=== PATIENT | female | born 1995 | race Caucasian/White ===

== ENCOUNTER → 2020-05-16 | Outpatient (CLI) | payer BC, SELFPAY ==
[2020-05-16 13:37] VITALS: BMI 24.0
[2020-05-20 09:44] LABS: HPV APTIMA, High Risk Negative (Negative)
== END | disposition home or self-care (01) ==
PROVIDERS: PCP Family Medicine; Visit Provider Obstetrics & Gynecology
DX: Z12.4 Encounter for screening for malignant neoplasm of cervix (principal)
CPT/HCPCS: 87624; 88175; G0145

== ENCOUNTER 2020-05-17 11:38 | Day surgery (SDC) | payer BC, SELFPAY ==
[2020-05-16 13:37] VITALS: BMI 24.0
[2020-05-17 12:02] LABS: Hematocrit 42.8 % (37-47); Hemoglobin 13.7 g/dL (12.0-15.0); Mean Corpuscular Hgb 26.9 pg (27.0-32.0); Mean Corpuscular Volume 83.9 fL (81-99); Mean Platelet Vol. 10.1 fl (6.2-12.0); Platelet Count 335 K/mm3 (150-450); RBC Distribution Width CV 12.5 % (11.6-14.6); RBC Distribution Width SD 38.2 fl (35.1-43.9); White Blood Count 6.3 K/mm3 (4.4-11.0)
[2020-05-17 12:13] VITALS: BP 114/71; PULSE 86; RESP 16; TEMP 37.4; O2SAT 100; BMI 23.6
[2020-05-17] MEDS: Lactated Ringers 1,000 ML 100 ML IV (12:33)
[2020-05-17] MEDS: Doxycycline 100 MG CAPSULE PO (12:35)
--- NOTE | 2020-05-17 13:30 | POC_PTH ---
PATIENT: AP SEN LOC: [facility] U#:[id number] AGE/SX: 25/ ROOM: RE05/17/[address]: Dr. Kristel Rivera MD : 1995 BED: DIS: 05/17/2020 SPEC #: [id number] RECD: 05/17/20 15:46 STATUS: BOBO REGilmar #: [id number] ANGI: 05/17/20 13:[address]: Kristel Rivera DEPT: SURGICAL PATHOLOGY RECD BY: Jenniffer Maria ENTERED: 05/18/20 10:08 SP TYPE: PROD CONC OTHR DR: Dr. Ozzie George, Tissues: Product of conception, NOS Procedures: Surgery Specimen Level IV HEADER OPERATION: Suction dilation and curettage PRE-OP DIAGNOSIS: Missed TISSUE SUBMITTED: Products of conception MICROSCOPIC DIAGNOSIS Products of conception: [place]id[place], gestational endometrium and immature chorionic villi (products of conception). SJ:aaron 05/19/20 MICROSCOPIC DESCRIPTION Slides are reviewed. GROSS DESCRIPTION Received in fixative is one container labeled with the patient's name and designated products of conception. The specimen consists of multiple irregular fragments of anderson soft tissue that in aggregate measure 6 x 5 x 2 cm. tissue is not identified. Car Sweeper tissue is submitted in two cassettes. / SJ:aaron 05/18/20 TC:5 CPT: 09669
--- NOTE | 2020-05-17 14:18 | PCM.HPOB.BLA ---
- Problem List (1) Missed Status: Acute Comment: - Abran. 10 weeks measuring 6w5d, no FHT with 6 mm CRL. discussed medical vs surgical management, proceed with suction d and c History and Physical Date of Admission: 05/17/20 Intake Vital Signs 05/16/20 Height 5 ft 5.5 in 05/16/20 Weight: 147 lb 05/16/20 BP 124/78 H Intake Visit Reasons: NOB LMP 03/01 Chief Complaint: NEW OB LMP [id number] Filling Hauler Required: No Is patient in pain?: No Allergies No Known Allergies Allergy (Verified 05/16/20 13:38) Medications multivitamin no.47-iron fum 27 mg-folate no.1 1 mg-dha 300 mg capsule cap PO 05/02/20 [History Confirmed 05/16/20] promethazine 12.5 mg tablet 12.5 mg PO TID #60 tab 05/02/20 [Rx Confirmed 05/16/20] metoclopramide HCl 10 mg tablet 10 mg PO TID PRN #90 tab 05/16/20 [Rx Confirmed 05/16/20] Last Menstral Period: 03/02/20 : No PFSH PFSH Medical History Abnormal Pap smear of cervix (Acute) Surgical History No significant past surgical history (Acute) Social History (Updated 05/16/20 @ 15:[address] 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 she denies any bleeding or cramping. upon evaluation the is measuring 4 weeks behind with no FHT. CRL 6mm. she denies any fevers OB Visit RONIT Calculator Estimated Delivery Date Method Current WG Current Estimate 12/07/20 LMP (Certain) 10w 5d Estimated Due Date: 12/07/20 Expected Delivery Route/Plan Labor Preferences- CB/BF classes: [] labor support person: [] labor intervention preferences: [] pain management options preferred: [] cut cord/dad catch: [] : [] PP control planned: [] discussed possible routes of delivery and associated risks: [] special requests: [] Specific Issue/Plans Labor Preferences- CB/BF classes: [] labor support person: [] labor intervention preferences: [] pain management options preferred: [] cut cord/dad catch: [] : [] PP control planned: [] discussed possible routes of delivery and associated risks: [] special requests: [] Menstrual History Last Menstral Period: 03/02/20 Antepartum Record Genetic Screening: Congenital Heart Defect: Other, Neural Tube Defect: Other, Hemoglobinopathy Or Carrier: Other, Cystic Fibrosis: Other, Chromosome Abnormality: Other, Clyde-Sachs: Other, Hemophilia: Other, Intellectual Disability/Autism: Other, Recurrent Loss/Stillbirth: Partner (Maternal Aunt), Other Structural Defect: Other, Other Genetic Disease: Other, Maternal Metabolic Disorder: Other Comments/Counseling: Abran's younger brother has type 1 DM Infection History: Live with someone with TB or Exposed to TB: No, Patient or Partner has history of Genital Herpes: No, Rash or Viral illness since last mentrual period: No, Prior GBS-Infected child: No, History of STD: No, HIV Infection: No, History of Hepatitis: No, Recent travel outside of [place]: No, Concern for Hep exposure: No, Varicella immune: Yes Medical History Medical History: Positive: Psychiatric, History of abnormal pap (needs colposcopy), Negative: Diabetes, Hypertension, Heart disease, Auto-immune disorder, Kidney disease/UTI, Neurologic/epilepsy, Depression/ depression, Hepatitis/liver disease, Varicosities/phlebitis, Thyroid dysfunction, Trauma/domestic violence, History of blood transfusions, D (Rh) Sensitized, Pulmonary (e.g.,TB,Asthma), Seasonal allergies, Drug/latex allergies/reactions, Breast, Fashion Merchandiser surgery, Operations/hospitalizations, Anesthetic complications, Uterine anomaly/dino, Infertility, Anti-retroviral treatment, Relevant family history, Other ACOG First Trimester First Trimester: Desire for , Alcohol, Tobacco Cessation, Illicit/Recreational Drug/Substance Use, Intimate Partner Violence, Barriers to care, Unstable Housing, Communication Barriers, Environmental/Work Hazards, Anticipated Course of Care, Nurtrition and weight gain, Toxoplasmosis Precations, Use of Any medications, Sexual activity, Exercise, Dental Care, Sauna/Hot tub use, Seat Belt use, Childbirth classes/Hospital facilities, , Travel, Indications for [place] and Screening for Aneuploidy Assessment & Plan Problems 1. Abnormal Pap smear of cervix R87.619 needs PAP at NOB 2. Missed O02.1 - Abran. 10 weeks measuring 6w5d, no FHT with 6 mm CRL. discussed medical vs surgical management, proceed with suction d and c Plan After discussing the patient's diagnosis and treatment plan options, patient wishes to proceed with surgical management. I have discussed with the patient the risks, benefits, and alternatives of the procedure which include but are not limited to risks of anesthesia, bleeding, infection, possible damage to bowel, bladder, or surrounding vasculature which could lead to additional surgery to evaluate any complications. Patient agrees to procedure and wishes to proceed. ACOG/uptodate references given for additional information regarding procedure. Orders Orders: PAP I-G w/rfx hrHPV-Aptima Today Z34.90 Medications New: metoclopramide HCl (Reglan) 10 mg PO TID PRN 90 tabs 3RF headache Coding Level of Care Code Off vis,new,level 4 Diagnoses Abnormal Pap smear of cervix R87.619 Missed O02.1 UPDATE- I have seen the patient and performed any clinically relevant updates to the history and physical exam. Kristel Rivera MD
--- NOTE | 2020-05-17 14:18 | PCM.OPRPT ---
Problem List (1) Missed Status: Acute Comment: - Abran. 10 weeks measuring 6w5d, no FHT with 6 mm CRL. discussed medical vs surgical management, proceed with suction d and c Report of Operation Date of Procedure: 05/17/20 Pre-Operative Diagnosis: missed ab Post-Operative Diagnosis: Same Surgery/Procedure Performed:: suction d and c Description of Surgical Findings:: 7 week missed ab no fht seen Type of Anesthesia:: Local MAC Special Medications: none Specimen's removed: poc Drains: none Estimated Blood Loss (mL): 50 Fluids Replaced: crystalloid Description of Procedure: Patient was taken to the operating room and placed under MAC local anesthesia. She was prepped and draped in the normal sterile fashion the dorsal lithotomy position. Bladder was drained of clear urine and anterior lip of the cervix was grasped and the uterus sounded to 8. Cervix was progressively dilated to allow passage of a 8 suction curette. Progressive passes were made removing the retained products of conception without complication. Sharp curettage confirmed complete removal of the retained products. All instruments were removed from the vagina and excellent hemostasis was noted and the patient was taken to recovery in stable condition. Grafts/Implants Used: none - Complications none Multi Select Codes - Urinary/Genital Urinary/Genital CPT Codes: 56254 Surg Trtmt missed Ab 1TM
--- NOTE | 2020-05-17 14:19 | DCINST_ITS ---
Discharge Diet: No Restrictions Discharge Activity: Return to Normal Activity, May Shower, May Take a Tub Bath Allergies/Adverse Reactions: Allergies No Known Allergies Allergy (Verified 05/17/20 12:12) Medications to take at Discharge multivitamin no.47-iron fum 27 mg-folate no.1 1 mg-dha 300 mg capsule 1 cap PO DAILY 05/02/20 Promethazine HCl 12.5 mg PO TID PRN 05/16/20 metoclopramide HCl 10 mg tablet 10 mg PO TID PRN #90 tab 05/16/20 Primary Care Physician: Ozzie George DO [Primary Care Provider] - Test Results: Test results from this visit will be discussed in further detail at your follow- up appointment, if applicable. Please Follow Up With: Kristel Rivera MD - [phone]
[2020-05-17 14:30] VITALS: BP 107/63; BP 114/71; PULSE 79; RESP 18; TEMP 36.8; O2SAT 100
[2020-05-17 14:35] VITALS: BP 111/65; BP 114/71; PULSE 95; RESP 18; O2SAT 100
[2020-05-17 14:40] VITALS: BP 110/63; BP 114/71; PULSE 86; RESP 18; O2SAT 100
[2020-05-17 14:46] VITALS: BP 110/66; BP 114/71; PULSE 89; RESP 18; TEMP 36.4; O2SAT 100
[2020-05-17] MEDS: HYDROcodone Bitartrate/Apap 5/325 Tablet PO (15:33)
[2020-05-17 16:07] VITALS: BP 112/67; BP 114/71; PULSE 82; RESP 16; TEMP 37.6; O2SAT 98
== END 2020-05-17 16:09 | disposition home or self-care (01) ==
LOC: SDC 11:38 → AC 11:38
PROVIDERS: PCP Family Medicine; Referring Provider Obstetrics & Gynecology; Visit Provider Obstetrics & Gynecology
PROC: (CPT 59820; principal; 2020-05-17 13:15)
DX: O02.1 Missed abortion (principal); G40.909 Epilepsy, unspecified, not intractable, without status epilepticus; E07.9 Disorder of thyroid, unspecified; I10 Essential (primary) hypertension; Z79.899 Other long term (current) drug therapy
CPT/HCPCS: 01965; 59820; 85027; 86850; 86900; 86901; 88305; J7120; A4216; J2405

== ENCOUNTER 2021-03-22 09:30 | Emergency (ER) | payer OTHER, SELFPAY ==
[2021-03-22 09:30] VITALS: BP 140/105; PULSE 95; RESP 18; TEMP 36.2; O2SAT 95; BMI 26.4
--- NOTE | 2021-03-22 09:46 | EDS_ITS ---
HPI History of Present Illness Chief Complaint: Suicidal Informant: patient Onset/Context/Timing Onset: Month(s) Context: Gradual Onset Timing: Continuous Narrative Narrative: 26-year-old female history of depression. Is on buspirone as needed. She also has a history of cutting. She is never actually attempted suicide. States she had a miscarriage last April and a D&C. States she initially buried herself in her work but since that is slow down after October she said the last 3 months she has had constant thoughts of suicidal ideation. She denies a specific plan at this time but said if she would do anything it would probably be take pills. States she is actually scared to do it. Has never been hospitalized. Currently is not under the care of any mental health professional but has an appointment next week with a counselor. 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 Review of Systems ROS Unobtainable: Denies due to encephalopathy Constitutional Constitutional ED: Denies excessive sweating Eyes Eyes: Denies blurry vision ENT ENT ED: Denies dizziness Cardiovascular Cardiovascular: Denies cyanosis or dizziness Respiratory/Chest Respiratory/Chest: Denies cough Genitourinary Genitourinary ED: Denies abdominal discomfort Musculoskeletal Musculoskeletal: Denies none or extremity pain Integumentary Denies none Neurologic Neurologic: Denies abnormal speech Psychiatric Psychiatric: Reports anxiety Endocrine Endocrinology: Denies deepening of the voice Hematologic/Lymphatic Hematologic/Lymphatic: Denies none, anemia or easy bleeding Allergic/Immunologic Allergic/Immunologic ED: Denies none or lip swelling EXAM Physical Exam Narrative Exam Narrative: 26-year-old female. Vital signs stable afebrile. Tearful but otherwise no acute distress. HEENT exam unremarkable. Lungs clear to auscultation. Heart regular rhythm no murmur. Abdomen soft nontender. Moving all four extremities. No acute injuries. Neck nontender no lymphadenopathy. No trauma. Back nontender. Neurologically she is awake alert. Answering questions and following commands. No signs of toxidrome. No smell of alcohol. She is emotionally upset. She does make eye contact and is cooperative. Const Vital Signs: 03/22/21 09:30 Temperature 97.1 F L Temperature Source Temporal Pulse Rate 95 Respiratory Rate 18 Blood Pressure 140/105 H Blood Pressure Mean 116 Pulse Ox 95 Oxygen Delivery Method Room Air Positive well nourished, well developed, alert, oriented x3, no apparent dis tress, average body habitus, no limitations and healthy appearing; Negative for obese or unkempt General Appearance ED: active, cooperative, comfortable, well kempt and well developed; Negative for unkempt Nutritional Appearance: Negative for obese HEENT normocephalic, normal to inspection and atraumatic; Negative for trauma Eyes PERRL and EOMs intact bilaterally Neck full ROM, No nuchal rigidity, no lymphadenopathy, supple, no meningeal signs and no JVD Lymph Lymphatic: no lymphadenopathy noted and no lymphedema noted Chest Wall inspection of chest normal and palpation of chest normal Resp normal respiratory effort, normal air movement, no retractions, no use of accessory muscles and clear to auscultation bilaterally Cardio regular rate, regular rhythm, S1 normal heart sound and S2 normal heart sound GI normal to inspection, nondistended, normoactive bowel sounds, soft to palpation, non-tender and non-distended Back/Spine no CVA tenderness, normal ROM and normal to inspection Extremity normal to inspection, full ROM, no joint enlargement, no clubbing, cyanosis or edema, no calf tenderness and no pedal edema Neuro oriented x3, CN's II-XII intact bilaterally, moves all extremities and no focal motor deficits Psych mental status grossly normal, thought process normal, cooperative, speech n ormal, activity/motor behavior normal and denies hallucinations; Negative for denies suicidal ideation Appearance: Negative for unkempt Attitude: calm Mood & Affect: depressed Skin no rashes or lesions noted, no wounds, skin turgor normal, no jaundice and no petechiae MDM MDM MDM Narrative Medical decision making narrative: 26-year-old female tearful. Had a miscarriage last April. Has been more depressed the last several months having suicidal thoughts. Reportedly no attempt. She will go through ED mental health screening laboratory work-up. She is currently medically cleared exam otherwise unremarkable. I will have our social science professor speak with her also. Exam patient is doing well at 10:29 AM. Emergency department social science professor also spoke with the patient and does not feel comfortable the patient being discharged home. Patient will be voluntary admit to a psychiatric facility which is being pursued at this time. Lab Data Attestation: I reviewed the patient's lab results. Lab results narrative: CBC shows normal white count of 7. Hemoglobin 13.8. Electrolytes unremarkable gap of 5 normal creatinine. Glucose 85. Serum test negative. Tox screen negative. Alcohol negative. Labs: Laboratory Results - last 24 hr 03/22/21 03/22/21 03/22/21 09:55 10:00 10:00 WBC 7.8 RBC 5.28 Hgb 13.8 Hct 43.5 MCV 82.4 MCH 26.1 L MCHC 31.7 L RDW Std Deviation 40.7 RDW Coeff of Tabitha 13.8 Plt Count 393 MPV 10.4 Immature Gran % (Auto) 0.300 Neut % (Auto) 68.4 Lymph % (Auto) 21.1 Irwin % (Auto) 6.8 Eos % (Auto) 2.4 Baso % (Auto) 1.0 Absolute Neuts (auto) 5.4 Absolute Lymphs (auto) 1.65 Nucleated RBC % 0 Sodium 138 Potassium 3.7 Chloride 105 Carbon Dioxide 28.0 Anion Gap 5 BUN 6 L Creatinine 0.73 Estim Creat Clear Calc 110.28 Est GFR (MDRD) Af Amer 124 Est GFR (MDRD) Non-Af 103 BUN/Creatinine Ratio 8.2 L Glucose 85 Calcium 9.7 Serum , Qual Urine Opiates Screen NEGATIVE Urine Methadone Screen NEGATIVE Ur Barbiturates Screen NEGATIVE Ur Phencyclidine Scrn NEGATIVE Ur Amphetamines Screen NEGATIVE U Methamphetamin-MDMA NEGATIVE U Benzodiazepines Scrn NEGATIVE Urine Cocaine Screen NEGATIVE U Cannabinoids Screen NEGATIVE Ur Drug Screen Comment Ethyl Alcohol 03/22/21 03/22/21 10:00 10:00 WBC RBC Hgb Hct MCV MCH MCHC RDW Std Deviation RDW Coeff of Tabitha Plt Count MPV Immature Gran % (Auto) Neut % (Auto) Lymph % (Auto) Irwin % (Auto) Eos % (Auto) Baso % (Auto) Absolute Neuts (auto) Absolute Lymphs (auto) Nucleated RBC % Sodium Potassium Chloride Carbon Dioxide Anion Gap BUN Creatinine Estim Creat Clear Calc Est GFR (MDRD) Af Amer Est GFR (MDRD) Non-Af BUN/Creatinine Ratio Glucose Calcium Serum , Qual NEGATIVE Urine Opiates Screen Urine Methadone Screen Ur Barbiturates Screen Ur Phencyclidine Scrn Ur Amphetamines Screen U Methamphetamin-MDMA U Benzodiazepines Scrn Urine Cocaine Screen U Cannabinoids Screen Ur Drug Screen Comment Ethyl Alcohol < 3.0 Discharge Plan Triage Chief Complaint: Suicidal ED Provider: Td Villa Dx/Rx/DC Orders Clinical Impression: Depression, Depression with suicidal ideation Prescriptions: No Action buspirone 5 mg tablet 5 mg PO BID PRN (Reason: Anxiety) RF: 0 Primary Care Provider: Sujatha Oconnor NP Referrals: Sujatha Oconnor NP, OCEAN IMPORT REPRESENTATIVE-C [Primary Care Provider] - Disposition Disposition: Psychiatric Hospital or Unit
--- NOTE | 2021-03-22 10:04 | NURSING ---
NO OLD EKGS
[2021-03-22 10:14] LABS: Absolute Lymphocyte Count 1.65 X10^3/uL (0.83-4.51); Absolute Neutrophil Count 5.4 X10^3/uL (2.0-7.7); Basophil# 0.08 X10^3/uL; Eosinophil# 0.19 X10^3/uL; Eosinophils% 2.4 % (0-5); Hematocrit 43.5 % (37-47); Hemoglobin 13.8 g/dL (12.0-15.0); Lymphocyte # 1.65 X10^3/ul (0.83-4.51); Lymphocyte % 21.1 % (19-41); Mean Corp Hgb Conc 31.7 g/dL (32-36); Mean Corpuscular Hgb 26.1 pg (27.0-32.0); Mean Corpuscular Volume 82.4 fL (81-99); Mean Platelet Vol. 10.4 fl (6.2-12.0); Monocyte# 0.53 X10^3/uL; Monocyte% 6.8 % (0-10); NRBC Flagged by Analyzer 0 % (0-5); Neutrophil # 5.36 X10^3/uL (2.7-7.7); Neutrophil % 68.4 % (47-70); Platelet Count 393 K/mm3 (150-450); RBC Distribution Width CV 13.8 % (11.6-14.6); RBC Distribution Width SD 40.7 fl (35.1-43.9); Red Blood Count 5.28 M/mm3 (4.2-5.4); White Blood Count 7.8 K/mm3 (4.4-11.0)
[2021-03-22 10:22] LABS: Internal QC Validated? YES +Cl - CLEAR BKGD; Pregnancy, Serum, hCG Quali. NEGATIVE Negative
[2021-03-22 10:28] LABS: Anion Gap 5 (5-15); BUN 6 mg/dL (7-18); BUN/Creat Ratio 8.2 RATIO (10-20); Calcium,Total 9.7 mg/dL (8.5-10.1); Chloride 105 mmol/L (98-107); Creatinine, Serum 0.73 mg/dL (0.55-1.02); EST Glomerular Filtration Rate 103 mL/min (>60); Est Glom Filt Rate - Afr Amer 124 mL/min (>60); Estimated Creatinine Clearance 110.28 ml/min; Glucose 85 mg/dL (74-106); Potassium 3.7 mmol/L (3.5-5.1); Sodium Level 138 mmol/L (136-145)
[2021-03-22 10:32] LABS: Alcohol, Blood (Medical)-Serum < 3.0 mg/dL
[2021-03-22 10:33] LABS: Amphetamine Urine VISTA NEGATIVE (<1000 ng/mL); Barbiturate Urine VISTA NEGATIVE (< 200 ng/mL); Benzodiazepine Urine VISTA NEGATIVE (< 200 ng/mL); Cocaine Urine VISTA NEGATIVE (< 300 ng/mL); Ecstacy Urine VISTA NEGATIVE (< 500 ng/mL); Methadone Urine VISTA NEGATIVE (< 300 ng/mL); PCP Urine VISTA NEGATIVE (< 25 ng/mL); THC Urine VISTA NEGATIVE (< 50 ng/mL); Vista UDS pH Range 6
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
--- NOTE | 2021-03-22 11:56 | CM.ED ---
SOCIAL WORK Call to [facility], spoke with Brigitte. Per Brigitte, does have beds available. Will fax referral. Plan: Pending at [facility] NIGHAT Dunlap, INDUSTRIAL FABRIC CUTTER
[2021-03-22 13:30] VITALS: BP 112/74; PULSE 72; O2SAT 100
--- NOTE | 2021-03-22 13:32 | EKG12_ITS ---
Test Reason : MEDICAL CLEARANCE Blood Pressure : / mmHG Vent. Rate : 074 BPM Atrial Rate : 074 BPM P-R Int : 142 ms QRS Dur : 084 ms QT Int : 352 ms P-R-T Axes : 053 041 039 degrees QTc Int : 390 ms Normal sinus rhythm Normal ECG Confirmed by GARTH GOMEZ, HAM ([id number]), fan mail editor EUGENE SIMON ([id number]) on 03/27/2021 9:42:20 AM Referred By: ZABRINA/HEIDY Confirmed By:HAM LIANG MD
--- NOTE | 2021-03-22 13:51 | EX.ED.DYSGE1 ---
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 Lab results narrative: Patient's labs CBC was unremarkable white count of 7. Hemoglobin 13.8. Electrolytes unremarkable normal gap and creatinine. Tox screen negative. Alcohol negative. negative. EKG requested by psychiatric facility was normal. Rate of 74. Labs: Laboratory Results - last 24 hr 03/22/21 03/22/21 03/22/21 09:55 10:00 10:00 WBC 7.8 RBC 5.28 Hgb 13.8 Hct 43.5 MCV 82.4 MCH 26.1 L MCHC 31.7 L RDW Std Deviation 40.7 RDW Coeff of Tabitha 13.8 Plt Count 393 MPV 10.4 Immature Gran % (Auto) 0.300 Neut % (Auto) 68.4 Lymph % (Auto) 21.1 Atkinson % (Auto) 6.8 Eos % (Auto) 2.4 Baso % (Auto) 1.0 Absolute Neuts (auto) 5.4 Absolute Lymphs (auto) 1.65 Nucleated RBC % 0 Sodium 138 Potassium 3.7 Chloride 105 Carbon Dioxide 28.0 Anion Gap 5 BUN 6 L Creatinine 0.73 Estim Creat Clear Calc 110.28 Est GFR (MDRD) Af Amer 124 Est GFR (MDRD) Non-Af 103 BUN/Creatinine Ratio 8.2 L Glucose 85 Calcium 9.7 Serum , Qual Urine Opiates Screen NEGATIVE Urine Methadone Screen NEGATIVE Ur Barbiturates Screen NEGATIVE Ur Phencyclidine Scrn NEGATIVE Ur Amphetamines Screen NEGATIVE U Methamphetamin-MDMA NEGATIVE U Benzodiazepines Scrn NEGATIVE Urine Cocaine Screen NEGATIVE U Cannabinoids Screen NEGATIVE Ur Drug Screen Comment Ethyl Alcohol 03/22/21 03/22/21 10:00 10:00 WBC RBC Hgb Hct MCV MCH MCHC RDW Std Deviation RDW Coeff of Tabitha Plt Count MPV Immature Gran % (Auto) Neut % (Auto) Lymph % (Auto) Atkinson % (Auto) Eos % (Auto) Baso % (Auto) Absolute Neuts (auto) Absolute Lymphs (auto) Nucleated RBC % Sodium Potassium Chloride Carbon Dioxide Anion Gap BUN Creatinine Estim Creat Clear Calc Est GFR (MDRD) Af Amer Est GFR (MDRD) Non-Af BUN/Creatinine Ratio Glucose Calcium Serum , Qual NEGATIVE Urine Opiates Screen Urine Methadone Screen Ur Barbiturates Screen Ur Phencyclidine Scrn Ur Amphetamines Screen U Methamphetamin-MDMA U Benzodiazepines Scrn Urine Cocaine Screen U Cannabinoids Screen Ur Drug Screen Comment Ethyl Alcohol < 3.0 Rhythm Strip Rhythm Strip: Sinus Rhythm Rate: 74 Ectopy: None EKG Initial EKG: Attestation: I personally reviewed and interpreted this EKG as follows: Interpretation: Sinus Rhythm and No Acute Injury Pattern Comments: Normal sinus rhythm rate of 74 no acute changes. Prior EKG tracings: not available for review Discharge Plan Triage Chief Complaint: Suicidal ED Provider: [facility] Dx/Rx/DC Orders Clinical Impression: Depression, Depression with suicidal ideation Prescriptions: No Action buspirone 5 mg tablet 5 mg PO BID PRN (Reason: Anxiety) RF: 0 Primary Care Provider: Sujatha Oconnor NP Referrals: Sujatha Oconnor NP, PRODUCT PROMOTER SALES PERSON-C [Primary Care Provider] - Disposition Disposition: Psychiatric Hospital or Unit
--- NOTE | 2021-03-22 14:29 | CM.ED ---
SOCIAL WORK Patient accepted to [facility] by Dr. Gandara. Nurse to call report to [phone]. Per Kamini with [facility], transport has been scheduled through [employer] for a 4:30p roll picker. Staff, patient, and patient's updated. Ron Simon, SMALL BATTERY PLATE ASSEMBLER, CRABBING MACHINE OPERATOR
[2021-03-22 15:40] VITALS: BP 115/70; PULSE 74; RESP 15; O2SAT 100
[2021-03-22 16:00] VITALS: RESP 15
== END 2021-03-22 16:15 ==
PROVIDERS: Emergency Provider Emergency Medicine; PCP Nurse Practitioner Family
DX: F32.9 Major depressive disorder, single episode, unspecified (principal); R45.851 Suicidal ideations; Z91.5 Personal history of self-harm
CPT/HCPCS: 80048; 80307; 82077; 84703; 85025; 87426; 93005; 99285

== ENCOUNTER 2021-04-25 09:24 | Outpatient (RCR) | payer OTHER, SELFPAY ==
--- NOTE | 2021-04-25 09:05 | BH.SGPN.GN ---
Behaviors/Verbalizations/Mental Status: []Client alert and oriented, neatly dressed and groomed. Eye contact good. Motor activity appropriate. Speech within normal limits. Affect congruent, mood anxious. Thoughts linear, logical, no signs of hallucinations or delusions. Reviewed client?s symptom tracker, no risk for suicidal ideation, plan, or intent as of 04/25/21 Client Response/Progress/Benefit: []Client responded well to session, receptive to support from peers. Client's first day of IOP tx and reports feeling anxious but states she is looking forward to being in IOP. Client stated she hopes to get my medications figured out and gain a community while in IOP tx. Client reports the medication she is currently on is helping her mood and has significantly decreased suicidal ideations, but client does not like taking it. Group offered client words of encouragement and hope for progress. Appeared to benefit from connecting with peers. Will continue IOP tx to prevent decompensation, gain healthy coping skills, and improve overall functioning. Narrative Note: []
--- NOTE | 2021-04-25 10:15 | BH.SGPN.GN ---
Behaviors/Verbalizations/Mental Status: []Client alert and oriented, casually dressed and groomed. Eye contact good. Motor activity appropriate. Speech within normal limits. Affect congruent, mood euthymic. Thoughts linear, logical, no signs of hallucinations or delusions. Client Response/Progress/Benefit: []Client receptive to session, participating throughout. Provided input as the group brainstormed the positive and negative aspects of stress on physical and mental health. Group did well to identify the benefits of stress as well as the impact of distress on performance and mental health. Client identified top stressors such as money issues, renovations, and managing mental health. Client reports when the stress overflows client reaction is hopeless, intrusive thoughts, shut down, and panic attacks. Client seemed to benefit from increased awareness of current stressors and impact stress has on mental health. Recommended to continue IOP tx to increase healthy coping, improve daily functioning and prevent decompensation. Narrative Note: []
--- NOTE | 2021-04-25 11:15 | BH.SGPN.GN ---
Behaviors/Verbalizations/Mental Status: [] Client alert and oriented, casually dressed and groomed. Eye contact good. Motor activity appropriate. Speech within normal limits. Affect congruent, mood anxious and euthymic. Thoughts linear, logical, no signs of hallucinations or delusions. Client Response/Progress/Benefit: [] Client first day in IOP tx. Did well to remain engaged throughout AEB providing input, taking notes, and actively participating in challenge activity. Client took on a leadership role and provided suggestions and encouragement throughout. Able to make connections between activity and stress management skills in daily life. Sharing that ?[we] Need to be willing to ask for help when faced with stress?. Client remained attentive and contributed during discussion about the 4 A's of managing stress, expressing connection with the various benefits of each. Shared wanting to practice the skills of adapting when it comes to her mindset, noting that she is trying to redefine success and be more compassionate with herself for needing time for her mental health. Client seemed to benefit from increased awareness of the impact of stress on mental health and increasing repertoire of stress management strategies. Will continue IOP tx to prevent decompensation, improve insight into warning signs and triggers, as well as develop healthier means of coping. Narrative Note: []
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
[2021-04-26 09:30] VITALS: BP 128/85; PULSE 93
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
--- NOTE | 2021-04-26 13:13 | BH.DR.ITP ---
Initial Treatment Plan Patient Information Visit Information: ADMISSION DATE: EXPECTED LOS: 4-6 weeks Problems/Symptoms Problem #1:: Depression Symptom:: Sadness, hopelessness, low energy, decreased concentration, passive suicidal ideation, passive thoughts of Problem #2:: Anxiety Symptom:: Restlessness, history of panic attacks, rumination
== END 2021-04-27 23:59 ==
LOC: BHIOP 09:24
PROVIDERS: PCP Nurse Practitioner Family; Referring Provider Psychiatry & Neurology Psychiatry; Visit Provider Psychiatry & Neurology Psychiatry
DX: F34.1 Dysthymic disorder (principal); F33.2 Major depressive disorder, recurrent severe without psychotic features
CPT/HCPCS: S9480; 90853

== ENCOUNTER 2021-04-28 09:00 | Outpatient (RCR) | payer OTHER, SELFPAY ==
[2021-04-28 00:40] VITALS: BP 128/85; PULSE 93
--- NOTE | 2021-04-28 10:10 | BH.SGPN.GN ---
Behaviors/Verbalizations/Mental Status: []Client alert and oriented, neatly dressed and groomed. Eye contact good. Motor activity appropriate. Speech within normal limits. Affect constricted, mood euthymic. Thoughts linear, logical, no signs of hallucinations or delusions. Client Response/Progress/Benefit: []Pt was a semi-active participant in group discussion. Attentive during psychoeducation on communication styles. Along with peers pt participated in providing insight into the benefits to effective communication on mental health which included; helps us get needs met, resolves problems, improves relationships, establishes expectations, decreases stress, and to express emotions. Pt reports it is important for her to ?get my point across? and advocate for herself through communication. Pt along with peers able to identify ways that communication can be misinterpreted. Benefited from increased awareness of different communication styles and the importance of communicating effectively to improve mental wellness. Will continue in IOP to learn healthy coping skills, improve mood stability, and reduce negative thinking. Narrative Note: []
--- NOTE | 2021-04-28 11:10 | BH.SGPN.GN ---
Behaviors/Verbalizations/Mental Status: []Eye contact is good. Motor activity is appropriate. Appearance is casual. Speech is Appropriate. Mood is euthymic. Affect is congruent. Thoughts are linear and logical. No evidence of psychosis. Client Response/Progress/Benefit: []Pt was a passive participant in group discussion. Attentive during psychoeducation on communication styles (Passive, Passive-Aggressive, Aggressive, and Assertive) and benefits/disadvantages to each style. Along with peers pt participated in providing insight into the benefits to effective communication on mental health. Pt along with peers able to identify ways that communication can be misinterpreted through tone, texting, body language and assumptions. Pt identified her most frequently used communication style as assertive. Reported she wants to work on mindfulness by not bringing up the past during a conversation. Benefited from increased awareness of different communication styles and the importance of communicating effectively to improve mental wellness. Will continue in IOP to improve daily functioning, increase healthy coping skills, and prevent decompensation. Narrative Note: []
--- NOTE | 2021-04-28 13:36 | BH.PSA ---
Suicide Assessment Treatment Plan Recommendations
--- NOTE | 2021-04-28 13:36 | BH.PSA_ITS ---
Suicide Assessment Treatment Plan Recommendations
--- NOTE | 2021-04-28 15:30 | BH.MDN ---
Multi-Disciplinary Note - Note 30-min Individual Time Started:: 09:30 Date: 04/28/21 Purpose of session/treatment goals addressed:: Purpose of session was to assess pt's current symptoms and stressors and identify treatment goals for IOP. Eye Contact:: Good Motor Activity:: Appropriate Appearance:: Casual Speech:: Appropriate Mood:: Euthymic Affect:: Full Thoughts:: Linear, Logical, No evidence of hallucinations/delusions noted Staff Interventions:: rapport building, strengths perspective, treatment planning, goal setting, taught coping skills - diaphramatic breathing Client Response:: Pt stated she has found her first week in IOP to be enjoyable. Pt reported she believes her medication issues/questions were answered and dealt with yesterday by IOP psychiatrist. Pt reported she believes medication has been helping decrease depressive symptoms and has decreased suicidal thoughts. Pt reported continued issues with managing everyday stress. Pt reported previoulsy she would have to leave work middle of the day if she was stressed about something. Pt reported she tends to deal with stress by avoidance. Pt stated she often will distract herself, sleep, or leave a situation when stressed. Pt recognizes this tends to make the situation worse. Pt noted concerns that she tends to get emotional, irritable, sometimes suicidal and feels crazy right before her period. Pt reported this has been something that has gone on for years and her sister has a similar issue. Therapist encouraged pt to discuss this pattern with her OBGYN. Pt stated while in IOP she would like to learn strateiges to manage stress and anxiety more effectively. Responded well to being taught diaphramatic breathing. Pt stated her goal for the week is to make dinner 5 out of 7 days. Risks/Concerns:: Pt reports occassional passive thoughts of in the last week. Pt denies active suicidal/homicidal ideation, plan or intention. Pt states in regards to suicidality this is the best she has been in the last 6 months. Future oriented. Progress Toward Goals/Plan:: Progress noted with pt reporting decreased depression, decreased suicidality and decreased sleeping throughout the day. Pt continues to report difficulty managing daily stressors and daily anxiety. Pt is to continue IOP to increase healthy coping, decrease anxiety and prevent decompensation. Time Stopped:: 10:00
--- NOTE | 2021-04-28 20:39 | BH.MTP ---
Master Treatment Plan - Patient Information Program Physician:: Dr. Oliveira Primary Therapist:: Tonya Iniguez, [facility] - Psychiatric Diagnoses Psychiatric Diagnoses:: 1. Dysthymia. 2. Major depressive disorder, recurrent, severe without psychosis. 3. History of binge eating disorder. 4. Cluster B traits. 5. Financial and primary support (miscarriage) issues Diagnosis Code(s):: F 34.1 - Estimated LOS Estimated LOS (in weeks):: 6 Problem/Goal #1 - Problem/Goal #1 Stated Goal:: Client will decrease depression, feeling of worthlessness, and suicidal ideation due to Major Depression Disorder through Intensive Outpatient Program. Description of Barriers: Pt's distorted thoughts, sensitivity to medications, restlessness, hopelessness, and negative self-talk are potential barriers to treatment. Functional Impact: The patient was sent to the emergency room by her CHAPTER RELATIONS ADMINISTRATOR physician on March 22, 2021 for worsening depression. The patient states that she had a miscarriage in April 2020. She then became somewhat depressed and had a lot of side effects on medications and eventually resulted in her being sent to the emergency room and then admitted to [facility] psychiatric unit from March 22 to March 27, 2021. At that time she had suicidal ideation with a plan to overdose. Pt feels the Abilify that she is on now since being in the hospital so has helped her symptoms somewhat. She feels hopeless somewhat now but less than before she says. She feels her depression is less severe than it was when she was admitted to the hospital. She is sleeping 10 hours a night and has a low energy level and decreased concentration during the day. She endorses having passive thoughts of but denies any passive suicidal ideation for 1 week now. She denies active suicidal ideation, homicidal ideation, hallucinations, delusions or symptoms of meir. - Objectives Objective #1 Stated Objective: Client will learn and utilize 2-3 healthy coping strategies to manage depressive symptoms. Interventions: Therapist will utilize CBT techniques to assist client with understanding the connection between thoughts, feelings and behaviors. Education will be provided on behavioral activation. Therapist will assist client in learning internal coping strategies to manage depressive symptoms, along with helping client identify triggers. Discharge Criteria: Client will have achieved this goal when can verbalize and practiced at least 2 healthy coping strategies that successfully manage depressive symptoms. Target Date: 06/06/21 Review Date: 05/23/21 Objective #2 Stated Objective: Pt will decrease depressive symptoms AEB pt?s score on the DSM 5 cross-cutting measure and improve pt?s daily functioning. Interventions: Through groups and individual therapy, pt will be provided with education on cognitive distortions, mistaken beliefs, and identifying and combating negative self-talk. Therapist will assist pt with getting back into the activities she once enjoyed as well as increasing healthy coping strategies. Discharge Criteria: Pt will have met this goal when pt?s score on the DSM 5 cross cutting measure for depression has been decreased and per pt?s report daily functioning has improved. Target Date: 06/06/21 Review Date: 05/23/21 Problem/Goal #2 - Problem/Goal #2 Stated Goal:: Stabilize anxiety level while increasing ability to function on daily basis. Description of Barriers: Pt's distorted thoughts, sensitivity to medications, restlessness, hopelessness, and negative self-talk are potential barriers to treatment. Functional Impact: The patient was sent to the emergency room by her CHAPTER RELATIONS ADMINISTRATOR physician on March 22, 2021 for worsening depression. The patient states that she had a miscarriage in April 2020. She then became somewhat depressed and had a lot of side effects on medications and eventually resulted in her being sent to the emergency room and then admitted to [facility] psychiatric unit from March 22 to March 27, 2021. At that time she had suicidal ideation with a plan to overdose. Pt feels the Abilify that she is on now since being in the hospital so has helped her symptoms somewhat. She feels hopeless somewhat now but less than before she says. She feels her depression is less severe than it was when she was admitted to the hospital. She is sleeping 10 hours a night and has a low energy level and decreased concentration during the day. She endorses having passive thoughts of but denies any passive suicidal ideation for 1 week now. She denies active suicidal ideation, homicidal ideation, hallucinations, delusions or symptoms of meir. - Objectives Objective #1 Stated Objective: Client will learn and implement 2-3 calming skills to reduce overall anxiety and manage anxiety symptoms.? Interventions: Therapist will teach calming/relaxation skills and how to apply these skills to everyday life. Discharge Criteria: Client will have achieved this goal when can verbalize at least 2 calming strategies and have practiced techniques to help reduce anxiety. Target Date: 06/06/21 Review Date: 05/23/21 Objective #2 Stated Objective: Pt will decrease anxious symptoms AEB pt?s score on the DSM 5 cross-cutting measure improve pt?s daily functioning. Interventions: Through groups and individual therapy, pt will be provided education about anxiety?s impact on body and common physiological reaction to anxiety. Therapist will teach pt appropriate breathing techniques and build healthy coping skills to manage daily anxieties. Discharge Criteria: Pt will have met this goal when pt?s score on the DSM 5 cross cutting measure for anxiety has been decreased and per pt?s report daily functioning has improved. Target Date: 06/06/21 Review Date: 05/23/21
--- NOTE | 2021-05-02 09:05 | BH.SGPN.GN ---
Behaviors/Verbalizations/Mental Status: []Client alert and oriented, neatly dressed and groomed. Eye contact good. Motor activity appropriate. Speech within normal limits. Affect congruent, mood euthymic. Thoughts linear, logical, no signs of hallucinations or delusions. Reviewed client?s symptom tracker, no risk for suicidal ideation, plan, or intent as of 05/02/21 Client Response/Progress/Benefit: []Client responded well to session, attentive and providing supportive statements. Client reports feeling grounded and calm this morning. Client reports last night she and her worked on some home renovations and she cooked dinner which was a goal from group. Client self-reports on her daily symptom tracker that her mood and functioning have generally been better. Client states she has been using belly breathing to help manage anxiety. Client shared her biggest stressor is finances and feeling embarrassed that she has to ask for help from her parents. Sand Mixer Operator encouraged client to challenge negative self-talk and remind herself that all people need help sometimes. Appeared to benefit from reflecting on applicationg of coping skills. Will continue IOP tx to promote mood stability, reduce negative thinking, and improve daily functioning. Narrative Note: []
--- NOTE | 2021-05-02 10:05 | BH.SGPN.GN ---
Behaviors/Verbalizations/Mental Status: []Eye contact is good. Motor activity is appropriate. Appearance is casual. Speech is Appropriate. Mood is euthymic. Affect is congruent. Thoughts are linear and logical. No evidence of psychosis. Client Response/Progress/Benefit: [] Pt was an active participant in group discussion and activity. Attentive during psychoeducation on coping skills. Pt along with peers worked together to identify unhealthy coping skills such as; avoidance, lashing out on others, substances, isolation, catastrophizing, and self-harm. Group was able to identify why people use unhealthy coping skills such as; easy, comfortable, work in the short-term, habit, or it?s what they were taught/learned from others. Pt noted ?We may learn coping skills from social ques or pressure from others?. Pt was able to make connection between the activity (tower building) and the importance of having a strong base/foundation of both internal and external coping skills. Benefited from increased understanding of unhealthy coping skills and the need for developing healthy internal and external coping skills. Pt will continue in IOP to prevent decompensation, increase health coping and emotion release skills, and improve functioning to return to work. Narrative Note: []
--- NOTE | 2021-05-02 11:05 | BH.SGPN.GN ---
Behaviors/Verbalizations/Mental Status: []Client alert and oriented, casually dressed and groomed. Eye contact good. Motor activity appropriate. Speech within normal limits. Affect congruent, mood euthymic. Thoughts linear, logical, no signs of hallucinations or delusions. Client Response/Progress/Benefit: []Client responded well to session, taking notes and contributing throughout. Group discussed the different categories of coping skills which included distraction, emotional release, grounding, self-love, and thought challenging. Client participated in creating a coping skills ?menu? from the five categories of coping skills. Client's coping skill menu included: engage in a hobby, belly breathing, physically taking care of self, cleaning, and GLAD. Appeared to benefit from increasing repertoire of healthy coping skills. Will continue tx to help client regulate emotions, reduce negative thinking and prevent decompensation. Narrative Note: []
--- NOTE | 2021-05-04 09:00 | BH.SGPN.GN ---
Behaviors/Verbalizations/Mental Status: []Client alert and oriented, casually dressed and groomed. Eye contact good. Motor activity appropriate. Speech within normal limits. Affect congruent-tearful, mood anxious. Thoughts linear, logical, no signs of hallucinations or delusions. Reviewed client?s symptom tracker, no risk for suicidal ideation, plan, or intent as of 05/04/21 Client Response/Progress/Benefit: []Client responded well to session, attentive and receptive to feedback. Client reports feeling anxious this morning due to ongoing house projects and a current spider infestation at her house. Client stated she is getting stuff done at the house and she and her have been asking for help when needed. Client also shared she was approved for short-term disability which client identified as a mental health win. Client became tearful during the end of session and stated I feel like I just need to cry today. Receptive to discussion of stress and how even positive stress impacts emotions. Appeared to benefit from group and tractor crane operator support. Will continue IOP tx to prevent decompensation, improve emotional regulation skills, and reduce negative thinking. Narrative Note: []
--- NOTE | 2021-05-05 09:05 | BH.SGPN.GN ---
Behaviors/Verbalizations/Mental Status: []Eye contact is good. Motor activity is appropriate. Appearance is casual. Speech is appropriate. Mood is anxious. Affect is incongruent AEB laughing and smiling when talking about anxiety attack. Thoughts are linear and logical. No evidence of psychosis. Reviewed daily symptom tracker sheet with report of low suicidal ideations , but indicates no plan or intent, which is typical of client?s baseline. Client Response/Progress/Benefit: []Client was attentive and engaged throughout group session. Client reported her emotion of the day as ?optimistic.? Described having a panic attack yesterday during group which she identified as both a positive and a stressor. Client states that she was able to delay escape and use affirmations to attend most of group. Client reported taking time for self care when she returned home, preventing further escalation. Clinician and group supported and validated client?s feelings as well as provided her with suggestions on additional anxiety management skills. Appeared to benefit from supportive group environment. Indicated per daily symptom tracker low depressed mood, and moderate anxiety, as well as generally worse mood and ability to function. This is incongruent with client?s identified emotion. Client will continue IOP treatment to increase anxiety management and maintain safety. Narrative Note: []
--- NOTE | 2021-05-05 11:03 | BH.SGPN.GN ---
Behaviors/Verbalizations/Mental Status: []Client alert and oriented, casually dressed and groomed. Eye contact good. Motor activity appropriate. Speech within normal limits. Affect congruent, mood tired and anxious. Thoughts linear, logical, no signs of hallucinations or delusions. Client Response/Progress/Benefit: []Client responded well to session AEB listening attentively to peers and providing input. Client engaged in the boundary self-assessment and was attentive during psychoeducation on the different boundary styles. Noted she connects most with the porous boundary setting style as client shared, she overshares and is too trusting of people. Client reports being porous often leads to client getting overwhelmed by stressors and ?I ended up in IOP.? Client was given a handout on strategies for healthy boundary setting. Client identified wanting to work on practicing saying no using the example statements from the handout. Progress noted in client?s ability to practice grounding coping skills yesterday. Will continue IOP tx to improve mood stability, reduce negative thinking, and gain healthy coping skills. Narrative Note: []
--- NOTE | 2021-05-05 14:26 | BH.MDN_ITS ---
Multi-Disciplinary Note - Note 30-min Individual Time Started:: 10:30 Date: 05/05/21 Purpose of session/treatment goals addressed:: Purpose of session is to address goals 1 and 2 from MTP. Eye Contact:: Fair Motor Activity:: Appropriate Appearance:: Casual Speech:: Appropriate Mood:: Anxious Affect:: Constricted Thoughts:: Linear, Logical, No evidence of hallucinations/delusions noted Staff Interventions:: thought challenging, CBT techniques, goal setting, other - reviewed belly breathing and grounding tools Client Response:: Pt stated she didn't complete goal of cooking meals at least 5 times in the week, but did cook 3-4 meals. Pt reported she might have set her goal too high because she went from not cooking to taking time to cook for at least half the week. Pt stated feeling more accomplished for taking time to co ok. Pt stated she has been practicing her belly breathing and grounding which she stated as been very helpful to manage her anxiety. Pt reported she is using positive self-talk more frequently which has been helping manage depressive thoughts. Pt shared she has been navigating stressors more effectively. Pt reported she is currently struggling with overthinking at times and lacking motivation. Pt reported she has many house projects she could do but struggles to make self complete tasks unless she has her there to direct her on what to do. Pt receptive to ideas from therapist to help increase motivation. pt reported goal is to paint the bathroom ceiling independently by next week. Additional goal is to continue practicing belly breathing. Risks/Concerns:: denies suicidal/homicidal ideation plan or intention to date. Future focused. Progress Toward Goals/Plan:: Progress noted with pt reporting improved mood, use of healthy coping skills, improved functioning AEB pt cooking meals, and improved outlook on life. Pt continues to struggle with overthinking and low motivation. Pt anxious when thinking about returning to work. Pt to continue IOP to continue use of healthy coping, challenge distorted thoughts and prevent decompensation. Time Stopped:: 11:00
--- NOTE | 2021-05-09 09:05 | BH.SGPN.GN ---
Behaviors/Verbalizations/Mental Status: [] Eye contact is good. Motor activity is appropriate. Appearance is neat. Speech is Appropriate. Mood is anxious. Affect is congruent. Thoughts are linear and logical. No evidence of psychosis. Reviewed daily check in sheet and pt reports 1/5 for suicidal thoughts and 1/5 for intent. This has been baseline for patient. Client Response/Progress/Benefit: [] Pt was an active participant in group discussion. Attentive. Mental health wins include completing tasks in her house (painted bathroom cieling). She talked at length regarding increase anxiety that she may be . Significant intrusive thoughts and what if thinking regarding the possible . Mainly concerned that she will get and then have to stop her medications. I started started to feel better and I may have to stop everything. Numerous others concerns and stressors related to possibly being . Group provided support and encouragement which was benefical. Group also provided feedback on skills to help accept and being present and if then can address the concerns. Sitting with the anxiety has been distressful for patient. Also upcoming anniversary of miscarriage. Will continue in IOP to maintain safety, increase healthy coping, and improve functioning to return to work. Narrative Note: []
--- NOTE | 2021-05-09 10:10 | BH.SGPN.GN ---
Behaviors/Verbalizations/Mental Status: []Client alert and oriented, casually dressed and groomed. Eye contact good. Motor activity appropriate. Speech within normal limits. Affect congruent, mood euthymic and anxious. Thoughts linear, logical, no signs of hallucinations or delusions. Client Response/Progress/Benefit: []Pt frequently nodding during group discussions and attentive during psychoeducation. Took notes as peers identified obstacles or barriers that hinder our ability to communicate our emotions effectively, especially in stressful situations. Group identified the following obstacles; not knowing how to express self, distorted thought patterns, personalizing, and physical discomfort. Pt provided insight on how emotion and mood can impact effective communication. Pt took an active role during activity and reported that being ?quick to cry? is often a barrier to being able to manage her emotions in stressful situations. Benefited from increased awareness on how our emotions impact our communication. Will continue in IOP to promote mood stability, reduce negative thinking patterns, and increase stress management skills. Narrative Note: []
--- NOTE | 2021-05-09 11:14 | BH.SGPN.GN ---
Behaviors/Verbalizations/Mental Status: []Client alert and oriented, casually dressed and groomed. Eye contact good. Motor activity appropriate. Speech within normal limits. Affect congruent, mood dysthymic. Thoughts linear, logical, no signs of hallucinations or delusions. Client Response/Progress/Benefit: []Client engaged in session AEB client listening attentively to peers and providing input. Worked with group to process the activity completed in previous session and identify skills used to better manage emotions experienced throughout. Attentive during psychoeducation on 4 zones of regulation. Client able to identify feelings and behaviors for each zone. Client identified that her ?green zone? means she is feeling confident and is completing her regular routine, going to places she enjoys such as [employer], and doing projects around the house. Able to identify specific coping skills she can use to support self in each zone which included: opposite action, regular self check-ins, consistent self-care, and developing a go-to crisis plan. Benefited from increased education on zones of regulation or stages of alertness for emotions and healthy coping skills to use for each zone. Will continue IOP tx to further improve mood stability, reduce negative thinking and unhealthy coping, and improve daily functioning. Narrative Note: []
--- NOTE | 2021-05-10 11:00 | PCM.BH.PN ---
Progress Note Progress Note: History of Present Illness/Interim History: [] The patient is a 26-year-old female who is seen in follow-up at the [facility] behavioral health IOP program where she is being treated for depression. She was last seen about 2 weeks ago. The patient currently has had some increase in anxiety because she is worried about being . She states that they have been using condoms but they had an oops moment so patient became worried she may have conceived. She states that her last menstrual period was 2 weeks ago and was normal and she has no signs of feeling . Patient does not wish to become at this time so is using condoms but she is worried that if she does become that she will have to stop her 2 mg of Abilify which she feels is really helping her and has helped her more than the Zoloft did in the past. In addition the patient had a miscarriage in April 2020 so she is somewhat nervous about becoming again. She feels that her mood is still depressed but may be a little less depressed than when she started the program. She denies any thoughts of suicide and has had much rarer passive thoughts of in recent weeks. She denies any self-harm. Patient feels that the anxiety over being now may be related to the anniversary of her miscarriage which is also in April 2021. She denies homicidal ideation, hallucinations, delusions or plan for suicide. Current Psychiatric Medications: [] The patient had IM Abilify on March 24, 2021 but she is not going to stay on this and did not get her shot which was due around April 24, 2021.; She is on now 2 mg of p.o. daily of Abilify and hydroxyzine 25 mg up to 3 times daily as needed. She had decreased her p.o. Abilify dose after she was discharged from the hospital because it made her feel too tired and somewhat restless. She feels the current dose is helping her. Mental Status Examination: [] Patient is a 26-year-old female who is seen wearing a mask due to the pandemic and is casually dressed and groomed with good hygiene. She has no psychomotor agitation or retardation. Eye contact is good and speech is normal rate and rhythm and fluent with no pressure. Mood is depressed. Affect is only mildly constricted and approaching full. Thought process is goal-directed and organized. Thought content: There is evidence of rare passive thoughts of . There is no evidence of suicidal ideation, homicidal ideation, plan for suicide, hallucinations or delusions. The patient does have evidence of worry about becoming . Judgment is intact. Insight: Good. Impulsivity low to moderate. Diagnoses: [] 1. Dysthymia (F 34.1) 2. Major depressive disorder, recurrent, severe without psychosis 3. Approaching anniversary of miscarriage in April 2020 4. Cluster B traits 5. History of binge eating disorder 6. Financial and primary support issues Plan: [] The patient will continue the IOP program at [facility] as the structure, support, education and group therapy will hopefully prevent worsening of the patient's symptoms. The patient felt safe during the interview and if it time she not feel safe she will let us know or go to the emergency room. The risks, options, possible complications and side effects of the medications were again discussed with the patient and she understands and accepts these. In particular the risks of Abilify during were discussed in detail with the patient and she understands that most studies have not shown any increased risk of miscarriage or defects with Abilify. The benefit from Abilify might well outweigh the potential side effects during a . Patient understands that she is probably not at this point in time since the lack of control occurred only about 5 days after her menstrual period ended. The patient agrees to continue to use condoms and will continue to see if she is if she is at that time she will let us know. Patient no medication changes were made today and the patient will continue to follow-up with her outpatient psychiatric and medical providers.
--- NOTE | 2021-05-11 09:05 | BH.SGPN.GN ---
Behaviors/Verbalizations/Mental Status: [] Eye contact is good. Motor activity is appropriate. Appearance is casual. Speech is Appropriate. Mood is anxious. Affect is congruent. Thoughts are linear and logical. No evidence of psychosis. Reviewed daily check in sheet and pt reports 1/5 for suicidal thoughts and 0/5 for intent. This is below baseline. Client Response/Progress/Benefit: [] Pt was an active participant in group discussion. Attentive. Provided appropriate feedback. Emotion for today is wired. Shared that she is anxious about returning to work next week. Was tearful this AM however states it was a healthy cry. Which prompted a discussion regarding the benefits of crying as well as challenged the stigma of crying as negative. She discussed her thoughts on what made her cry healthy. She is able to reframe anxious thoughts about returning to work and accept that being anxious is normal for anyone returning to work. Progress noted per pt report. Benefited from group support, encouragment, and feedback. Will continue in IOP to maintain safety, increase healthy coping, and help with transition back to work. Narrative Note: []
--- NOTE | 2021-05-11 10:16 | BH.SGPN.GN ---
Behaviors/Verbalizations/Mental Status: []Client alert and oriented, casually dressed and groomed. Eye contact good. Motor activity appropriate. Speech within normal limits. Affect congruent, mood euthymic. Thoughts linear, logical, no signs of hallucinations or delusions. Client Response/Progress/Benefit: []Pt was an active participant AEB pt participating in activity, taking notes, and contributing to discussion. Pt worked with group to identify benefits of effective problem solving. Listened during psychoeducation about ABCDE problem solving method. Worked with group to identify barriers to effective problem solving which included: irrational thinking, impatience, indecisiveness, not having skills, feeling overwhelmed, and using substances. Pt reported she gets stuck between choosing solutions and actually following through with those solutions. Pt also stated communication is essential to problem-solving. Pt seemed to benefit from increased awareness of strategies to help solve a problem. Pt will continue IOP tx to improve stress management skills and increase mood stability. Narrative Note: []
--- NOTE | 2021-05-11 11:13 | BH.SGPN.GN ---
Behaviors/Verbalizations/Mental Status: []Eye contact is good. Motor activity is appropriate. Appearance is casual. Speech is Appropriate. Mood is dysthymic, anxious. Affect is congruent. Thoughts are linear and logical. No evidence of psychosis. Client Response/Progress/Benefit: []Pt responded well to session as evidenced by contributing during challenge activity, taking notes, and providing input when prompted throughout. Processed how strategies used for problem solving in activity can be applied to daily life. Pt completed problem solving worksheet and identified the problem she wants to work on as ?finishing the house?. Pt identified skills she can utilize to work on this problem include: recognize it?s not always within my control, start small with fixing two floorboards, reflect on accomplishments, set small goals, and celebrate accomplishments. Discussed that working to solve this problem will aid in improving mood management, reduce anxiety and stress levels, and reduce negative self-talk, and improve relationships with supports. Pt seemed to benefit from identifying strategies to problem solve through a problem currently impacting mental health. Recommended continued tx to further improve consistent healthy coping, continue to promote thought challenging, and further improve mood management skills. Narrative Note: []
--- NOTE | 2021-05-12 09:05 | BH.SGPN.GN ---
Behaviors/Verbalizations/Mental Status: Eye contact is good. Motor activity is appropriate. Appearance is casual. Speech is appropriate. Mood is euthymic. Affect is congruent. Thoughts are linear and logical. No evidence of psychosis. Reviewed daily symptom tracker sheet with score of 1/5 low suicidal ideation, but indicates no plan or intent, which is typical of client?s baseline. Client Response/Progress/Benefit: Client was engaged and attentive throughout group session. Client discussed being in a relaxed, stable mindset, which she identified as a win. Client discussed a stressor of returning to work on Saturday. 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 Appeared to benefit from supportive group discussion. Client indicated per daily symptom tracker decreased anxiety and depression from previous session. Will continue IOP treatment to prevent decompensation, and increase application of anxiety management coping skills to help patient return to work. Narrative Note: []
--- NOTE | 2021-05-12 10:10 | BH.SGPN.GN ---
Behaviors/Verbalizations/Mental Status: []Client alert and oriented, casually dressed and groomed. Eye contact good. Motor activity appropriate. Speech within normal limits. Affect constricted, mood anxious. Thoughts linear, logical, no signs of hallucinations or delusions. Client Response/Progress/Benefit: []Pt was an engaged participant in group discussion AEB taking notes and providing input at times. Attentive during psychoeducation reviewing internal and external obstacles and provided examples throughout. Participated in the reflection activity in which clients govind pictures depicting their current and desired reality and shared with the group. Pt identified barriers to getting to desired reality which included: need for external validation, procrastination, self-doubt, and no motivation. Benefited from group by increasing awareness of current reality and barriers. Will continue IOP tx to prevent decompensation, improve healthy coping skills, and challenge Narrative Note: []
--- NOTE | 2021-05-12 11:15 | BH.SGPN.GN ---
Behaviors/Verbalizations/Mental Status: []Client alert and oriented, casually dressed and groomed. Eye contact good. Motor activity appropriate. Speech within normal limits. Affect congruent, mood anxious. Thoughts linear, logical, no signs of hallucinations or delusions. Client Response/Progress/Benefit: []Client engaged during activity and provided ideas on how to cope with internal barriers that keep clients stuck from moving towards goals. Client able to identify barriers to desired reality. Identified barriers to current reality to include: lack of motivation, need for external validation, and negative self-talk. Client wants to work on overcoming the barrier of no motivation by creating a to-do list and identifying 5 tasks she can reasonably accomplish on it. Shared that this will help her to feel accomplished which will continue to maintain the motivation as well. Benefited from group by identifying obstacles and solutions to desired reality. Client will continue IOP tx to reduce distortions and improve thought challenging, increase use of healthy coping skills and emotion regulation, and improve overall functioning. Narrative Note: []
--- NOTE | 2021-05-12 14:24 | BH.MDN_ITS ---
Multi-Disciplinary Note - Note 30-min Individual Time Started:: 12:10 Date: 05/12/21 Purpose of session/treatment goals addressed:: Purpose of session was to discuss returning to work plan for next week. 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 Client Response:: Pt stated she has been feeling like crying a lot lately. Pt reported she has been crying sometimes out of nowhere. Pt stated this has been a difficult week for her because received a text from a friend sending support for pt's upcoming anniversary of her miscarriage. Pt reported she also starts back to work on Saturday and is terrified. Pt expressed anxiety about co-workers asking her where she has been the last few weeks. Pt stated she is unsure how she will adapt to the workload. Pt reported she works from home Saturday and Saturday then goes in for 1/2 day on Saturday. Pt receptive to feedback and support from therapist. Agreed it would be helpful to talk with line installation supervisor/boss about her expectations since being off work. Pt identified strategies that can help her cope in the next week include: words of affirmation, taking lunch break at work, cooking dinner at least once at home, belly breathing, walking dog, and using thought log. Pt stated she's looking forward to hanging out with some friends this weekend. Risks/Concerns:: Denies suicidal ideation, plan or intention to date. future focused. Progress Toward Goals/Plan:: Pt expressing increase in anxiety because of anniversary of her miscarriage and worries about returning to work next week. Pt is able to identify healthy coping skills that can help her manage the stress and anxiety. Discussed return to work plan, pt expressed understanding. Pt to continue IOP to assist pt with transition back to workplace, continue use of healthy coping skills and prevent decompesnation. Time Stopped:: 12:40
--- NOTE | 2021-05-17 09:05 | BH.SGPN.GN ---
Behaviors/Verbalizations/Mental Status: []Eye contact is good. Motor activity is appropriate. Appearance is casual. Speech is appropriate. Mood is stressed. Affect is congruent. Thoughts are linear and logical. No evidence of psychosis. Reviewed daily symptom tracker sheet with reports of 1/5 suicidal ideations which is within client?s baseline, denies plan or intent. Client Response/Progress/Benefit: []Client was engaged throughout group session, and reported her emotion as ?overwhelmed?. Client states that she has reached out to supports to help manage her stress causing her to feel overwhelmed. Client discussed being scared of returning to her job in person today. Appeared to benefit from group discussion of making lists and focusing on one task at a time to limit stress at work. Client reported a positive of using opposite action to come to IOP today, and to go to work later. Client indicated per daily symptom tracker that her mood and ability to function have been generally worse. Will continue IOP treatment to increase client?s ability to manage stress to help client maintain employment. Narrative Note: []
--- NOTE | 2021-05-17 10:10 | BH.SGPN.GN ---
Behaviors/Verbalizations/Mental Status: []Client alert and oriented, casually dressed and groomed. Eye contact good. Motor activity appropriate. Speech within normal limits. Affect congruent, mood anxious. Thoughts linear, logical, no signs of hallucinations or delusions. Client Response/Progress/Benefit: []Client engaged during session AEB client contributing thoughts throughout discussion and completing worksheet. Connected with discussion on crisis and how coping with external crises by using unhealthy coping skills could result in a personal crisis. Able to give examples of unhealthy coping skills people use to manage crisis. Group reflected on the importance of having awareness of personal warning signs to prevent reaching crisis point. Group identified potential warning signs for crisis and client completed the personal warning signs worksheet. Client identified personal crisis warning signs to include: negative thinking, not taking care of herself, and problems with memory. Client benefited by increasing awareness of what leads to crisis and personal warning signs. Client returns to work today and is feeling highly anxious. Will continue IOP tx to reduced work-related anxiety, improve emotional regulation skills, and further improve daily functioning. Narrative Note: []
--- NOTE | 2021-05-17 11:10 | BH.SGPN.GN ---
Behaviors/Verbalizations/Mental Status: []Client alert and oriented, casually dressed and groomed. Eye contact fair. Motor activity appropriate. Speech within normal limits. Affect congruent. Mood anxious. Thoughts linear, logical, no signs of hallucinations or delusions. Client Response/Progress/Benefit: []Client responded well to session as evidenced by client listening attentively to others and providing strategies during discussion. Client identified her warning signs for crisis and gained further awareness of earliest warning signs. Client created a crisis action plan to help client better manage warning signs for crisis. Client?s action plan for not taking care of self included: using products she likes, setting timers to motivate self, scheduling things to do so she can get ready, and appreciate the little things. Client appeared to benefit from creating a crisis action plan and increasing self-awareness. Client to continue IOP tx to help pt successfully transition back to work, continue use of healthy coping and prevent decompensation.
--- NOTE | 2021-05-19 15:31 | BH.MDN ---
Multi-Disciplinary Note - Note 45-min Individual Time Started:: 09:05 Date: 05/19/21 Purpose of session/treatment goals addressed:: Purpose of session was to address goals 1 and 2 from MTP. Eye Contact:: Fair Motor Activity:: Restless Appearance:: Casual Speech:: Rambling Mood:: Anxious, Dysthymic Affect:: Constricted Thoughts:: Racing, No evidence of hallucinations/delusions noted Staff Interventions:: thought challenging, motivational interviewing, CBT techniques, completed risk assessment / safety planning, other - reviewed healthy skills Client Response:: Pt reported her first day back in person to work did not go well. 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 Pt reported in her job list she had an overwhelming number of tasks/projects she would have to complete in 3 days. Pt stated when she left work she couldn't stop crying and realized she was not ready to go back to work. Pt reported she couldn't sleep on Saturday night because was dreading returning to work the next day. Pt stated morning she was having significant suicidal thoughts with the idea to use her 's gun to kill herself. Pt reported she informed her of her suicidal thoughts, plan and intent. Pt stated her removed the gun from where he had it so she couldn't use it. Pt reported yesterday she was a 9/10 for suicidal thoughts and intent. Pt stated she texted her boss in the morning telling him that she was not ready to return to work and would be taking more time off work until she felt more stable to return. Pt reported she still has passive thoughts of today, but denies intention or plan. Discussed importance of having get a gun safe or trigger guard for his gun instead of just hiding it someone new in the house. Pt agreed this would be a good idea. This therapist will contact to inform him of importance of securing weapon. Pt reported she is unsure she can go back to work at all and has been debating if she needs to seek long-term disability. Pt stated her anxiety becomes severe when she thinks about going back to any job. Pt struggled to accept feedback or challenge of thoughts from therapist. Pt also stated she is worried her medication isn't strong enough which is why her suicidal thoughts have returned. Pt tearful throughout session stating she keeps crying but doesn't know why. Pt stated she is experiencing uncontrollable crying again and is frustrated because doesn't want to be crying. Pt reported she does not want to stay for the rest of IOP today because of her mood and uncontrollable crying. Discussed what she will do over the weekend to stay safe. Pt stated she feels able to keep herself safe and does not have any intention or plan to kill herself. Risks/Concerns:: See client response for suicidal risk and counseling on access to lethal means. This therapist had attempted to contact pt's to encourage him to lock his gun up. Had several unsuccessful attempts to get pt's on the phone. This therapist contact pt and she reported she went to her sister's house so would be around a support person. Pt stated she would talk to her about getting a gun lock. Pt reiterated that she felt able to keep herself safe. Progress Toward Goals/Plan:: Pt progress decompensating AEB pt unable to return back to work, reporting increased suicidal thoughts, emotion dysregulation and increased anxiety. Pt's mental health symptoms interfering with ability to return to work at this time. Pt to continue IOP to prevent further decompensation, reinforce and practice healthy coping skills and continue to help pt successfully return back to work. Time Stopped:: 09:50
--- NOTE | 2021-05-23 09:05 | BH.SGPN.GN ---
Behaviors/Verbalizations/Mental Status: [] Eye contact is good. Motor activity is appropriate. Appearance is casual. Speech is Appropriate. Mood is anxious. Affect is congruent. Thoughts are linear and logical. No evidence of psychosis. Reviewed daily check in sheet and no reports of suicidal ideations or intent Client Response/Progress/Benefit: [] Pt was an active participant in group discussion. Attentive. Provided appropriate feedback. Emotion for today is comfortable. Shared her struggles last week stating that she experienced a significant depressive episode which was primarily triggered by work and work responsibilities. Depression led to isolation, avoidance, and not following through with IOP treatment (she missed 2 days last week). When I'm depressed I feel like it will never end. She reports utilizing coping skills at times. States today I'm starting to feel more stable. She left work last week and requested 6 weeks of additional FMLA. She had been minimizing the impact of her job in the past. I went to fast back to work. Currently reports that the work load and responsibilities are too much for her to handle and she is considering if this she can continue with work there with her mental health issues. No progress noted. Regression in the past week. Benefited from group support and encouragement. Will continue in IOP to maintain safety, prevent decompensation, and stabilize mood. Narrative Note: []
--- NOTE | 2021-05-23 11:18 | BH.SGPN.GN ---
Behaviors/Verbalizations/Mental Status: []Client alert and oriented, casually dressed and groomed. Eye contact fair to good. Motor activity appropriate. Speech within normal limits. Affect constricted, mood anxious, depressed. Thoughts linear, logical, no signs of hallucinations or delusions. Client Response/Progress/Benefit: []Client a semi-active participant throughout AEB attentive throughout discussion and taking notes, though remaining passive throughout. Client participated in the group activity highlighting the various barriers to effectively utilizing supports and strategies for improving support. Participated in discussion of the 5 ways our supports can support us (emotional, tangible, affirmational, network/belonging, and instructional) and the group listed examples for all types. Client reports wanting to work on increasing appraisal supports, noting this will help her better recognize and begin to acknowledge when she is making progress with her mental health. Client plans to do this by communicating with her supports the need for feedback when they recognize progress, as well as talk with her individual therapist about areas of progress. Client seemed to benefit from identifying the type of support and how this support will aid in promoting overall mental wellness. Will continue with IOP tx to promote healthy change behaviors, improve mood stability, and prevent decompensation. Narrative Note: []
--- NOTE | 2021-05-23 12:57 | BH.MDN_ITS ---
Multi-Disciplinary Note - Note 30-min Individual Time Started:: 10:35 Date: 05/23/21 Purpose of session/treatment goals addressed:: Purpose of session was to address goal 1 from MTP. Eye Contact:: Good Motor Activity:: Appropriate Appearance:: Casual Speech:: Appropriate Mood:: Euthymic Affect:: Full Staff Interventions:: CBT techniques, discharge planning, strengths perspective, goal setting Client Response:: Pt reported she is doing much better today compared to last week. Pt stated she believes she was struggling so bad last week becasue she started her menstrual cycle on Saturday and she stated it was like a light switch was flipped. Pt stated she has hx of her mood declining with increased suicidal thoughts 2-4 days prior to her menstrual cycle starting. Pt reported a lot of her struggles late last week could be explained by this. Pt stated she knows her hormones didn't cause all of her struggles because she does think going back to work with no restrictions was too stressful. Pt reported she still plans to take 6 more weeks off of work and will put in her two weeks notice when returns. 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 Pt stated in her last couple weeks in IOP she would like to continue focusing on learning and using healthy coping skills. Pt agreeable to contact one of the recommended counseling agencies provided by therapist to establish with a outpatient counselor. Pt stated goal for the week is to home cook two meals. Risks/Concerns:: Pt denies suicidal ideation, plan or intention to date. Progress Toward Goals/Plan:: Progress noted with pt reporting no suicidal ideation since Saturday, improved mood and decreased negative thinking. Pt attributes last weeks decline to having a hx of increased depression and suicidal thoughts right before her menstrual cycle starts. Pt stated signficiant improvement in mood once her period started on Saturday. Pt more hopeful and optimistic about her future compared to last week. Pt reported she still feels not ready to return to work. Pt to continue IOP to increase healthy coping, improve readiness to return to work and prevent decompensation. Time Stopped:: 11:00
--- NOTE | 2021-05-23 15:46 | BH.TPR ---
Treatment Plan Review Date of Admission:: 04/25/21 Date of Treatment Plan Review:: 05/23/21 Admitting Diagnoses:: 1. Dysthymia (F 34.1). 2. Major depressive disorder, recurrent, severe without psychosis. 3. History of binge eating disorder. 4. Cluster B traits. 5. Financial and primary support (miscarriage) issues Current Diagnoses:: 1. Dysthymia (F 34.1). 2. Major depressive disorder, recurrent, severe without psychosis. 3. Rule out PM DD. 4. Cluster B traits. 5. History of binge eating disorder Patient's Response to Treatment:: Pt's response to treatment is inconsistent AEB when she is doing well she is engaged and active partipant but when she is feeling depressed she is shut down and disonnected in session. Pt attendance is overall good, she did leave group on two occassions due to anxious symptoms. Status of Current Problems and Symptoms: Pt has recent decompensation after returning to work in person on 06/17/21 due to feeling overwhelmed. Pt started having increased suicidal thoughts that evening and thoughts of suicide with idea to kill self on 06/18/21 with 's gun. Pt reported decrease in suicidal thoughts on 06/19/21 after making decision to take additional time off work. Pt's symptoms seem to be dependent on the situation with working being significant source of stress. Problem #1 Problem Name:: depression Status of Goals:: obj 1 - partially met. Pt is able to identify and utilize healthy coping skills like belly breathing, setting boundaries, and to-do list. Pt struggles with consistently attending IOP. obj 2 - partially met, continued work encouraged. Per pt's DSM depression has decreased by 50%. Team Recommendations:: Despite pt's self-report of decrease in depression and anxiety it is recommended pt continue current goals and objectives due to recent decompensation with suicidal thoughts. Pt's symptoms tend to be situationally based so symptom decrease could be attributed to pt taking additional leave from work. Problem #2 Problem Name:: anxiety Status of Goals:: obj 1 - partially met. pt is able to identify and utilize calming skills like grounding and belly breathing. Pt struggles with in the moment coping when feeling anxious and reverts back to avoidance as her coping skill. obj 2 - completed, ongoing work encouarged. Per pt's DSM 5 scores pt's anxious symptoms decreased 88%. Team Recommendations:: Despite pt's self-report of decrease in depression and anxiety it is recommended pt continue current goals and objectives due to recent decompensation with suicidal thoughts. Pt's symptoms tend to be situationally based so symptom decrease could be attributed to pt taking additional leave from work.
--- NOTE | 2021-05-24 10:10 | BH.SGPN.GN ---
Behaviors/Verbalizations/Mental Status: [] Eye contact is good. Motor activity is appropriate. Appearance is disheveled. Speech is Appropriate. Mood is depressed. Affect is flat. Thoughts are linear and logical. No evidence of psychosis. Client Response/Progress/Benefit: [] Pt was an active participant in group discussion and activity. Attentive during psychoeducation. Pt participated in interactive group discussion in which group defined fixed mindset and provided insight on how a fixed mindset could impact mental health and result in; being closed to new possibilities, focusing only on how things are unfair, could lead to helplessness, could lead to feelings of not being in control, could cause one to feel like a failure, and could cause one to ignore any success. Interacted and worked well with peers in small group. Fixed mindset thoughts that were overheard during activity included; This won't work, this didn't work before, I don't think this matters, Its hard. I'm nervous, this sucks, this is impossible, I'm not good at this, we will fail. Benefited from increased awareness on the role of fixed mindset on mental health. Will continue in IOP to maintain safety, increase healthy coping, and improve functioning to return to work. Narrative Note: []
--- NOTE | 2021-05-24 11:10 | BH.SGPN.GN ---
Behaviors/Verbalizations/Mental Status: []Client alert and oriented, casually dressed and groomed. Eye contact good. Motor activity appropriate. Speech within normal limits. Affect congruent, mood euthymic. Thoughts linear, logical, no signs of hallucinations or delusions. Client Response/Progress/Benefit: []Client engaged during activity and discussion AEB remaining attentive, providing increased input, and taking notes throughout. Client worked in small group to apply skills learned to reframe own personal fixed thoughts. Appeared to benefit from suggestions provided by peers. Reframed personal fixed thought of ?I?m never going to get better? with growth mindset thought of ?this emotion is temporary.? Client also picked a strategy from the list of suggestions to develop a growth mindset and reports she will use this strategy before bed each night. Benefitted from discussing benefits of growth mindset and brainstorming strategies for prompting growth-mindset. Client continues to experience mood instability that seems to be connected to her menstrual cycle. Staff discussed these concerns with IOP psychiatrist. Will continue IOP tx to increase emotional regulation skills, improve functioning, and increase utilization of healthy coping skills. Narrative Note: []
--- NOTE | 2021-05-24 12:08 | PCM.BH.PN_ITS ---
Progress Note Progress Note: History of Present Illness/Interim History: [] The patient is a 26-year-old female who is seen in follow-up at the [facility] behavioral health IOP program where she is being treated for depression. I last saw the patient 2 weeks ago. The patient states that she feels she is doing better now but she had an episode of worsening depression and crying and even some passive suicidal ideation which occurred 10 days before her last menstrual period began on May 21, 2021. She has had some premenstrual symptoms in the past but they have never been as bad as this 1 was. She thinks that maybe she did realize that some of her depressive symptoms were worsening before her menstrual period. Her menses occur every 4 to 5 weeks in general. The patient states the symptoms went away immediately after her period started. The patient went back to work last week and also did not do well and was coincidentally this was the same time as her premenstrual.. She felt then that she needed more time off work. Also May 17, 2021 is the anniversary of her miscarriage and this could have affected her state of mind also. The patient still feels the Abilify has helped her overall but she does not want to increase the dose as she felt too tired on the 5 mg. She feels now today for the last several days she has been stable and her mood has been euthymic. She denies any depression now. She denies any passive thoughts of , suicidal ideation, homicidal ideation, hallucinations or delusions. She denies any self-harm or thoughts of self-harm. The patient found out that she is not which was her concern at her last appointment with me. Current Psychiatric Medications: [] Abilify 2 mg p.o. daily. Hydroxyzine 25 mg up to 3 times daily as needed. Mental Status Examination: [] The patient is a 26-year-old female who is seen wearing a mask due to the pandemic and is casually dressed and groomed with good hygiene. She has no psychomotor agitation or retardation. Eye contact is good and speech is normal rate and rhythm and fluent with no pressure. Mood is euthymic. Affect is full and normal. Thought process is goal-directed and organized. Thought content: There is no evidence of thoughts of , suicidal ideation, homicidal ideation, hallucinations or delusions. Judgment is intact. Insight is good. Impulsivity is low to moderate. Diagnoses: [] 1. Dysthymia (F 34.1) 2. Major depressive disorder, recurrent, severe without psychosis 3. Rule out PM DD 4. Cluster B traits 5. History of binge eating disorder Plan: [] The patient will continue the IOP program at [facility] as the structure, support, education, and group therapy will hopefully prevent worsening of the patient's symptoms. She felt safe during the interview and if it anytime she does not feel safe she will let us know or go to the emergency room. The risks, options, possible complications and side effects of the medications were again discussed with the patient and she understands and accepts these. The patient agrees to try adding Prozac 20 mg p.o. daily for 12 days immediately preceding the start of her menstrual period. Prescription was sent in for refill of her Abilify and a prescription was sent in for the Prozac, #36, 0 refills. The patient will continue to follow-up with her outpatient providers and I will follow her while she is in the IOP program.
--- NOTE | 2021-05-26 09:02 | BH.SGPN.GN ---
Behaviors/Verbalizations/Mental Status: []Eye contact is good. Motor activity is appropriate. Appearance is casual. Speech is appropriate. Mood is anxious. Affect is congruent. Thoughts are linear and logical. No evidence of psychosis. Reviewed daily symptom tracker sheet with report of 1/5 suicidal ideations which is client?s baseline, denies plan, or intent. Client Response/Progress/Benefit: []Client was engaged throughout group session. Client reported her emotion of the day as ?anxious but mellow?. Client stated that she is planning to put in a two week notice at her job when she returns, which she identifies as both a stressor and a win. Client discusses wanting to return to [employer], but is unsure if she will be able to cope with customers. Client discussed feeling increased anxiety and trouble sleeping, but discussed using coping skills including belly breathing to help. Appeared to benefit from supportive group environment. Progress noted AEB client reporting increased use of coping skills. Client indicated per daily symptom tracker that her mood and ability to function have been the same, and indicated an increase in anxiety. Will continue IOP treatment to increase anxiety management skills to aid client in returning to work. Narrative Note: []
--- NOTE | 2021-05-26 10:00 | BH.SGPN.GN ---
Behaviors/Verbalizations/Mental Status: []Client alert and oriented, casually dressed and groomed. Eye contact good. Motor activity appropriate. Speech within normal limits. Affect congruent, mood euthymic. Thoughts linear, logical, no signs of hallucinations or delusions. Client Response/Progress/Benefit: []Pt was an active participant in group discussion and activity. Attentive during psychoeducation on the stages of change. Pt participated in interactive discussion on emotions associated with change (guilty, anxious, sadness, hopeful, confident, exhausted, etc). Pt along with peers identified barriers that may prevent one from making change which included; fear of the unknown, feeling overwhelmed, and self-doubt. Pt stated sometimes she feels like there is a ?perfect time? to make change but also recognized how this could be a barrier. Benefited from increased awareness of emotions related to change, the change process, and benefits/barriers to change. Will continue IOP tx to improve work-related functioning, improve mood stability, and increase the utilization of healthy coping skills. Narrative Note: []
--- NOTE | 2021-05-26 11:00 | BH.SGPN.GN ---
Behaviors/Verbalizations/Mental Status: []Client alert and oriented, casually dressed and appropriately groomed. Eye contact good. Motor activity appropriate. Speech within normal limits. Affect congruent, mood anxious. Thoughts linear, logical, no signs of hallucinations or delusions. Client Response/Progress/Benefit: []Client responded well to session AEB taking notes and contributing to discussion. Client contributed during psychoeducation on the change process and different emotions in each stage of change. Client identified a change client would like to make to improve mental health which is to change career paths. Client reports belief she is currently in the preparation stage as client has already made decision she wants a different job, but has some self-doubt. Appeared to benefit from identifying what stage of change client is in and identifying strategies to overcome barriers. Will continue IOP tx to challenge negative thoughts, increase confidence and prevent decompensation.
== END 2021-05-28 23:59 ==
LOC: BHIOP 09:00
PROVIDERS: PCP Nurse Practitioner Family; Referring Provider Psychiatry & Neurology Psychiatry; Visit Provider Psychiatry & Neurology Psychiatry
DX: F34.1 Dysthymic disorder (principal); F33.2 Major depressive disorder, recurrent severe without psychotic features; Z79.899 Other long term (current) drug therapy
CPT/HCPCS: S9480; 90832; 90853

== ENCOUNTER 2021-05-30 09:00 | Outpatient (RCR) | payer OTHER, SELFPAY ==
[2021-05-29 00:31] VITALS: BP 128/85; PULSE 93
--- NOTE | 2021-05-30 09:05 | BH.SGPN.GN ---
Behaviors/Verbalizations/Mental Status: [] Eye contact is good. Motor activity is appropriate. Appearance is casual. Speech is Appropriate. Mood is anxious. Affect is congruent. Thoughts are linear and logical. No evidence of psychosis. Reviewed daily check in sheet and no reports of suicidal ideations or intent. Client Response/Progress/Benefit: [] Pt was an active participant in group discussion. Attentive. Provided appropriate feedback. Emotion for today is stable. Shared that her mood continues to improve since decompensation a couple weeks ago. She is is utilizing skills in order to practice and is trying to make healthy choices. Over the weekend used coping and anger mgmt skills which she reports was helpful. Increased her confidence to manage distress. She continues to ruminate on her eventual return to work and her future there. She is making some tough decisions and is unsure if they are the right ones. Group provided feedback and support which was helpful. Progress noted per pt report. Will continue in IOP to maintain safety, stabilize mood, and improve functioning to return to work. Narrative Note: []
--- NOTE | 2021-05-30 10:15 | BH.SGPN.GN ---
Behaviors/Verbalizations/Mental Status: []Client alert and oriented, casually dressed and groomed. Eye contact good. Motor activity appropriate. Speech within normal limits. Affect congruent, mood euthymic. Thoughts linear, logical, no signs of hallucinations or delusions. Client Response/Progress/Benefit: []Pt was well engaged in group AEB taking notes, providing input, and listening attentively throughout. Attentive during psychoeducation and discussed the importance of goal-setting with the group. Group identified potential benefits of having goals to include: to better oneself, increase self-confidence, improve relationships, create better boundaries, and improve mental health. Group also worked together to identify barriers to goal-setting which included; self-doubt, fear of failure, fear of success, and lack of motivation. Pt reported she personally struggles with barriers such as fear of success and negative thinking. Benefited from increased awareness of benefits and barriers to goal-setting. Will continue IOP tx to improve work-related functioning, reduce negative thinking, and improve ability to regulate emotions. Narrative Note: []
--- NOTE | 2021-05-30 11:18 | BH.SGPN.GN ---
Behaviors/Verbalizations/Mental Status: []Client alert and oriented, casually dressed and groomed. Eye contact good. Motor activity appropriate. Speech within normal limits. Affect constricted, mood anxious and dysthymic. Thoughts linear, logical, no signs of hallucinations or delusions. Client Response/Progress/Benefit: []Pt was an active participant in group discussions and activities. Engaged in activity. Pt identified a SMART goal for the next week is to: Practice one new internal coping skill a day for the next week. Pt reported this would benefit her mental health by encouraging her to practice new skills and better manage and reduce overall anxiety. Identified no motivation as a potential barrier to completing this goal. Pt able to identify several solutions, such as opposite action, that can help overcome identified barriers. Benefited from group by being able to utilize SMART educate to create a goal. Pt to continue IOP to stabilize mood, increase use of anxiety management and calming skills, reduce depression and anxiety, as well as prevent decompensation. Narrative Note: []
--- NOTE | 2021-06-01 09:05 | BH.SGPN.GN ---
Behaviors/Verbalizations/Mental Status: [] Eye contact is good. Motor activity is appropriate. Appearance is casual. Speech is Appropriate. Mood is euthymic. Affect is full. Thoughts are linear and logical. No evidence of psychosis. Reviewed daily check in sheet and no reports of suicidal ideations or intent. Client Response/Progress/Benefit: [] Pt was an active participant in group discussion on combating negative thoughts. Emotion for today is chill. Mental health wins include accomplishing goal of using a different internal coping skills everyday. Improved functioning. Continues to report improvement in mood. Admits to worry and apprehension about her return to work and future however is trying to focus on present and increasing skills/confidence when she is presented with crisis. Progress noted per pt report. Benefited from group support, encouragement, and feedback. Will continue in IOP to maintain gains, prevent decompensation, and improve function to return to work. Narrative Note: []
--- NOTE | 2021-06-01 10:11 | BH.SGPN.GN ---
Behaviors/Verbalizations/Mental Status: []Client alert and oriented, casually dressed and groomed. Eye contact good. Motor activity appropriate. Speech within normal limits. Affect congruent, mood anxious and dysthymic. Thoughts linear, logical, no signs of hallucinations or delusions. Client Response/Progress/Benefit: []Pt was an active participant in group discussion, taking notes and providing input throughout. Attentive during psychoeducation on communication styles. Along with peers pt participated in providing insight into the benefits to effective communication on mental health which included; helps us get needs met, resolves problems, improves relationships, maintains boundaries, and prevents additional conflict. Pt along with peers able to identify ways that communication can be misinterpreted. Pt noted ?Our own thoughts can create an illusion that communication has happened. We might think we got it across but we didn?t?. Pt reported connecting with ?fear of failure? as a potential communication barrier, discussing that she fears the other person won?t understand what she is trying to explain. Benefited from increased awareness of different communication barrier, styles, and the importance of communicating effectively to improve mental wellness. Will continue IOP tx to prevent decompensation, learn healthy anxiety and depression management skills, and improve overall functioning. Narrative Note: []
--- NOTE | 2021-06-01 11:10 | BH.SGPN.GN ---
Behaviors/Verbalizations/Mental Status: []Client alert and oriented, casually dressed and appropriately groomed. Eye contact good. Motor activity appropriate. Speech WNL. Affect congruent, mood euthymic. Thoughts linear, logical, no signs of hallucinations or delusions. Client Response/Progress/Benefit: []Client responded well to session AEB client listening attentively to others and providing input during group discussion on the pay offs and costs of the different communication styles. Client stated she is now an assertive communicator. Pt reported she used to be very passive aggressive communicating, but now sees her needs to met more often when assertive. Attentive during psychoeducation on interpersonal DBT skill OTIS and client selected a communication skill to practice. Client selected the skill of negotiating because she sometimes is steadfast to only get her way. Client seemed to benefit from increasing awareness of healthy strategies to improve communication. Will continue IOP tx to maintain gains, continue use of healthy coping and prevent decompensation.
--- NOTE | 2021-06-02 09:00 | BH.SGPN.GN ---
Behaviors/Verbalizations/Mental Status: []Eye contact is good. Motor activity is appropriate. Appearance is casual. Speech is appropriate. Mood is euthymic. Affect is congruent. Thoughts are linear and logical. No evidence of psychosis. Reviewed daily symptom tracker sheet with no reports of suicidal ideations, plan, or intent. Client Response/Progress/Benefit: []Client was engaged throughout group session. Reported her emotion of the day as ?mellow?. 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 Client appeared to benefit from group normalizing these feelings. Client expressed feeling like she is ?doing well?, reporting sticking with goal to try new coping skills, which is progress. Client indicated per daily symptom tracker that her mood and ability to function have been generally the same. Will continue IOP treatment to prevent decompensation, maintain gains made, and continue increasing client?s application of healthy coping skills. Narrative Note: []
--- NOTE | 2021-06-02 10:08 | BH.SGPN.GN ---
Behaviors/Verbalizations/Mental Status: []Eye contact is good. Motor activity is appropriate. Appearance is casual. Speech is Appropriate. Mood is euthymic, anxious. Affect is congruent. Thoughts are linear and logical. No evidence of psychosis. Client Response/Progress/Benefit: []Pt was an active participant in group discussion AEB asking questions and providing input throughout. Attentive during psychoeducation, sharing that this is a sensitive topic for her as she often struggles with perceived stigma. Pt along with peers added their perspective on the definition of stigma as it relates to mental health. Pt participated in interactive group discussion on the topic and the potential impacts of stigma on seeking help, confidence, and relationships with others. Pt reflected that mental health stigma has ?kept me from changing my environment, pursuing a different job, and seeking help?. Reflected beliefs she allows stigma to maintain thoughts of ?I?m not going to be able to maintain this, so why even try if I?m going to fail anyway?. Benefited from increased awareness of mental health stigma and how it could impact patient. Will continue in IOP to improve mood stability as well as depression and anxiety management skills, increase healthy coping and engagement in activities she enjoys, and improve functioning as she transitions to a new work environment. Narrative Note: []
--- NOTE | 2021-06-05 09:05 | BH.SGPN.GN ---
Behaviors/Verbalizations/Mental Status: [] Eye contact is good. Motor activity is appropriate. Appearance is disheveled. Speech is Appropriate. Mood is depressed. Affect is flat. Thoughts are linear and logical. No evidence of psychosis. Reviewed daily check in sheet and pt reports 1/5 for suicidal thoughts and 0/5 for intent. Client Response/Progress/Benefit: [] Pt was an active participant in group discussion. Attentive. Provided appropriate feedback. Emotion for today is depressed. Shared with the group increased depression yesterday which she attributes to the times change and getting dark at 5pm. She talked at length how this time change can impact her mental health. Her BF and her both reported depression and ended up going to bed around 630pm. Pt also reported I'm not sure what to do when my bf gets depressed. Group provided support and offered feedback on helping support during depression which was beneficial for patients. No progress noted. Limited skill use yesterday and opted to sleep to escape depression. Will continue in IOP to maintain safety, increase healthy coping, and improve functioning to return to work. Narrative Note: []
--- NOTE | 2021-06-05 10:13 | BH.SGPN.GN ---
Behaviors/Verbalizations/Mental Status: []Client alert and oriented, casually dressed and groomed. Eye contact good. Motor activity appropriate. Speech within normal limits. Affect congruent, mood dysthymic. Thoughts linear, logical, no signs of hallucinations or delusions. Client Response/Progress/Benefit: []Client receptive to session, participating throughout. Provided input as the group brainstormed the positive and negative aspects of stress on physical and mental health. Group did well to identify the benefits of stress as well as the impact of distress on performance and mental health. Client identified their personal top stressors as: potential career change, finances, and mental health. Client reports when the stress overflows client reacts with distraction, avoidance, overthinking, and crying spells. Shared she has done well to begin replacing these approaches with healthier coping mechanisms such as opposite action and talking to supports, though continues to struggle at times in these areas. Client seemed to benefit from increased awareness of current stressors and impact stress has on mental health. Recommended to continue IOP tx to promote consistent use of healthy coping, improve emotion regulation and reduce avoidance, as well as aid in transitioning back to employment. Narrative Note: []
--- NOTE | 2021-06-05 11:15 | BH.SGPN.GN ---
Behaviors/Verbalizations/Mental Status: []Client alert and oriented, casually dressed and groomed. Eye contact good. Motor activity appropriate. Speech within normal limits. Affect congruent, mood euthymic. Thoughts linear, logical, no signs of hallucinations or delusions. Client Response/Progress/Benefit: []Client engaged in session AEB listening attentively to others and providing input throughout discussions. Client was an active participant in challenge activity. Client remained attentive during discussion about the 4 A's of managing stress and expressed connecting with the various benefits of each. Client stated she wants to work on adapting how she views success/failure. Client reported adapting her view of success/failure will help her celebrate the small steps she makes. Client seemed to benefit from increased awareness of the impact stress has on mental health and increasing repertoire of stress management strategies. Will continue IOP tx to prevent decompensation, continue to promote thought challenging, and healthy coping skills. Narrative Note: []
--- NOTE | 2021-06-08 09:00 | BH.SGPN.GN ---
Behaviors/Verbalizations/Mental Status: []Client alert and oriented, casually dressed and groomed. Eye contact good. Motor activity appropriate. Speech within normal limits. Affect congruent, mood euthymic and anxious. Thoughts linear, logical, no signs of hallucinations or delusions. Reviewed client?s symptom tracker, no risk for suicidal ideation, plan, or intent as of 06/08/21 Client Response/Progress/Benefit: C[]Client responded well to session, attentive and providing supportive statements. Client's last day of IOP tx and client reports feeling optimistic this morning. Client shared I loved the program and that it helped client gain healthy coping skills to manage her anxiety and depression. Client stated she had ups and downs in the program and that it was during her down moments that she recognized she was making progress. Client stated sleep is currently an issue and client reports belief it is because she is stressed about quitting her job. Client shared overall her moods are more stable and she is functioning better. Appeared to benefit from reflecting on progress. Will discharge from IOP tx today as client has accomplished tx goals and no longer meets criteria for IOP level of care. Narrative Note: []
--- NOTE | 2021-06-08 10:10 | BH.SGPN.GN ---
Behaviors/Verbalizations/Mental Status: [] Eye contact is good. Motor activity is appropriate. Appearance is casual. Speech is Appropriate. Mood is euthymic. Affect is congruent. Thoughts are linear and logical. No evidence of psychosis. Client Response/Progress/Benefit: [] Pt was an active participant in group discussion and activity. Attentive during psychoeducation. Provided appropriate feedback. Group had an interactive discussion on defining pitfalls in the context of mental health. Group agreed with definition of events that impact progress or things that get you off track. Pt along with peers identified common mental health pitfalls which included; past experiences, current/past environments, poor communication, anxiety, any type of conflict, and feeling discomfort. Pt was able to identify the pitfalls and challenges that occurred during the experiential activity and worked with peers to identify strategies to overcome pitfalls. Able to make parallels between activity and ways to identify strategies to overcome pitfalls in real-life situations. Benefited from increased awareness of identifying and developing strategies to overcome pitfalls in mental health. Pt is set to be discharged from [facility] today. Narrative Note: []
--- NOTE | 2021-06-08 10:12 | BH.SGPN.GN ---
Behaviors/Verbalizations/Mental Status: []Client alert and oriented, casually dressed and groomed. Eye contact good. Motor activity appropriate. Speech within normal limits. Affect congruent, mood anxious and euthymic. Thoughts linear, logical, no signs of hallucinations or delusions Client Response/Progress/Benefit: []Client receptive of session, engaged throughout AEB client actively listening and contributing to discussion, as well as taking notes. Client completed worksheet identifying personal pitfalls impacting mental health progress. Client identified the following pitfalls: not practicing coping skills, saying ?I can?t? or expecting the worst outcome, cognitive distortions, placing blame on others/the external, and lack of motivation. Group brainstormed different coping skills to help manage pitfalls. Client selected ?trying to place the blame? as the pitfall client wants to overcome. Client plans to work on this by thought challenging, grounding, trying to ?find the [place] area?, and recognizing what?s out of my control. Benefited from identifying personal pitfalls and strategies to overcome these pitfalls. Will discharge from program on this date and is recommended continued outpatient therapy as well as aftercare to maintain gains, further anxiety management, and prevent decompensation. Narrative Note: []
--- NOTE | 2021-06-08 11:53 | BH.DS_ITS ---
Discharge Summary - Demographics Date of Admission:: 04/25/21 Discharge Date: 06/08/21 Presenting Problems at Admission:: The patient was sent to the emergency room by her [employer] physician on March 22, 2021 for worsening depression. The patient states that she had a miscarriage in April 2020. She then became somewhat depressed and had a lot of side effects on medications and eventually resulted in her being sent to the emergency room and then admitted to [facility] psychiatric unit from March 22 to March 27, 2021. At that time she had suicidal ideation with a plan to overdose. At admission she reported hopeless somewhat but less than before. She felt her depression is less severe than it was when she was admitted to the hospital. At admission pt was sleeping 10 hours a night and has a low energy level and decreased concentration during the day. She endorsed having passive thoughts of but denies any passive suicidal ideation for 1 week now. She denies active suicidal ideation, homicidal ideation, hallucinations, delusions or symptoms of meir. Discharge Diagnoses:: 1. Dysthymia (F 34.1). 2. Major depressive disorder, recurrent, severe without psychosis. 3. Rule out PM DD. 4. Cluster B traits. 5. History of binge eating disorder Reason for Discharge:: Pt has made significant treatment progress and has reached maximum benefit from IOP level of care. - Treatment Progress During Treatment & Response: Per pt's DSM 5 self-report scores pt has made significant treatment progress since starting IOP. DSM 5 scores at discharge indicate a 50% decrease in depressive symptoms, 57% decrease in anxious symptoms and an overall 67% decrease in mental health symptoms. For the most part pt consistently attended IOP sessions. Pt's engagement in group and individual sessions was strongly dependent on her mood for that day. Pt's anxiety dramatically decreased once she made decision to take more time off of work. Issues Still to be Addressed:: Pt could benefit from reinforcement of healthy coping skills and ability to challenge distorted thoughts. Additionally would benefit from learning skills to prepare pt with returning to work environment. In the moment anxiety reduction skills and improve confidence would be helpful. Discharge Recommendations/Instructions:: Pt provided with referrals for outpatient counseling, however pt has not established with a counselor due to waiting on her 's work to inform them what insurance she will be having once she quits her current job. Pt is established at [facility] psychiatry. Discharge Handout: Complete Discharge Handout with client on aftercare options and continuity of care.
== END 2021-06-08 13:29 | disposition home or self-care (01) ==
LOC: BHIOP 09:00
PROVIDERS: PCP Nurse Practitioner Family; Referring Provider Psychiatry & Neurology Psychiatry; Visit Provider Psychiatry & Neurology Psychiatry
DX: F33.2 Major depressive disorder, recurrent severe without psychotic features (principal); F34.1 Dysthymic disorder
CPT/HCPCS: S9480; 90853

== ENCOUNTER 2021-06-15 14:00 | Outpatient (RCR) | payer OTHER, SELFPAY ==
--- NOTE | 2021-06-15 14:00 | BH.SGPN.GN ---
Behaviors/Verbalizations/Mental Status: []Client alert and oriented, casually dressed and groomed. Eye contact good. Motor activity appropriate. Speech within normal limits. Affect congruent, mood anxious and euthymic. Thoughts linear, logical, no signs of hallucinations or delusions. Client Response/Progress/Benefit: []Pt responded well to session, provided input, and listened attentively to peers. Reported feeling ?optimistic? today, explaining that she feels like her new psych medication has been working. Additional win noted as looking forward to her upcoming shift in career. Pt discussed this is somewhat of a stressor but ultimately feels like the best decision for her mental health. Identified positive affirmations and healthy distraction as skills she has been actively utilizing. Client engaged in discussion on self-advocacy. Worked with group to identify the benefits of self-advocacy, as well as common barriers. Reviewed the personal bill of rights and shared she does well to advocate for the right to ?feel scared and say ?I?m afraid??. Discussed struggling with personal right of ?I have the right to be happy?. Noted plans to take steps in better advocating for this right by allowing herself to say ?no? to things she knows she won?t enjoy. Client seemed to benefit from reviewing treatment progress and skill application, as well as learning about how to increase self-advocacy. Client to continue aftercare to promote gains, prevent regression, and further improve functioning. Narrative Note: []
--- NOTE | 2021-06-15 14:34 | BH.DS_ITS ---
Discharge Summary - Demographics Date of Admission:: 06/15/21 Discharge Date: 06/15/21 Presenting Problems at Admission:: Client discharged from IOP tx and transitioned to [facility] aftercare to maintain gains client made in IOP. At admission to [facility] aftercare, client?s mood and functioning had improved. Client had reported over 50% reductions in both depression and anxiety sx. At discharge from [facility] client was still experiencing mild anxiety related to finances and home renovations, pt was struggling at times with maintaining healthy boundaries and practicing regular self-care. Discharge Diagnoses:: 1. Dysthymia (F 34.1). 2. Major depressive disorder, recurrent, severe without psychosis. 3. History of binge eating disorder. 4. Cluster B traits. 5. Financial and primary support (miscarriage) issues Reason for Discharge:: Client was discharged from [facility] aftercare due to multiple no call/no show sessions. Client attended only one aftercare appointment and reported she was functioning well and her mood had generally been better. - Treatment Progress During Treatment & Response: Limited progress as client was in [facility] aftercare for one session and discharged before fully completing the program. Therefore, client did not complete the discharge DMS-5. Client reported the biggest progress she made in [facility] was improving her ability to manage depression and suicidal ideation. Pt was able to successfully prevent hospitalization throughout [facility] tx. Issues Still to be Addressed:: Client can continue to benefit from outpatient counseling to reinforce healthy coping skills, thought challenging, and to further increase mood stability. Discharge Recommendations/Instructions:: Pt provided with referrals for outpatient counseling, however pt has not established with a counselor due to waiting on her 's work to inform them what insurance she will be having once she quits her current job. Pt is established at [facility] psychiatry. Discharge Handout: Complete Discharge Handout with client on aftercare options and continuity of care.
--- NOTE | 2021-06-16 11:08 | BH.MTP ---
Master Treatment Plan - Patient Information Program Physician:: Kristel Oliveira Primary Therapist:: Tonya Iniguez [facility] - Psychiatric Diagnoses Psychiatric Diagnoses:: 1. Dysthymia (F 34.1). 2. Major depressive disorder, recurrent, severe without psychosis. 3. History of binge eating disorder. 4. Cluster B traits. 5. Financial and primary support (miscarriage) issues Diagnosis Code(s):: F 34.1 - Estimated LOS Estimated LOS (in weeks):: 12 Problem/Goal #1 - Problem/Goal #1 Stated Goal:: Client will maintain or see a reduction in symptoms AEB client score on the DSM 5 cross-cutting measure and improve client's daily functioning. - Objectives Objective #1 Stated Objective: Client will continue to consistently apply healthy coping skills to maintain progress made in IOP tx. Interventions: Through group therapy, client will review warning signs and triggers as well as healthy coping skills learned in IOP tx to successfully maintain gains while transitioning into outpatient therapy. Discharge Criteria: Client will have accomplished this goal when client's score on the DSM-5 cross-cutting measure has either maintained or reduced over a 12 week period. Target Date: 09/14/21 Review Date: 07/20/21 Objective #2 Stated Objective: Client will learn and utilize 2-3 maintenance strategies to prevent decompensation. Interventions: Through group therapy, client will be provided with education on healthy maintenance behaviors, relapse prevention techniques, and healthy coping strategies. Discharge Criteria: Client will have accomplished this goal when can report using at least 2 maintenance skills to prevent decompensation. Target Date: 09/14/21 Review Date: 07/20/21
== END 2021-06-27 23:59 ==
LOC: BHOG 14:00
PROVIDERS: PCP Nurse Practitioner Family; Visit Provider Psychiatry & Neurology Psychiatry
DX: F34.1 Dysthymic disorder (principal); F33.2 Major depressive disorder, recurrent severe without psychotic features; F50.81 Binge eating disorder
CPT/HCPCS: 90853

== ENCOUNTER → 2022-01-25 | Outpatient (CLI) | payer OTHER, SELFPAY ==
[2022-01-25 10:28] LABS: hCG Titer Quant., Serum 24094 mIU/mL (1-3)
== END | disposition home or self-care (01) ==
LOC: PAVLAB 09:30
PROVIDERS: PCP Nurse Practitioner Family; Referring Provider Obstetrics & Gynecology; Visit Provider Obstetrics & Gynecology
DX: N93.9 Abnormal uterine and vaginal bleeding, unspecified (principal)
CPT/HCPCS: 36415; 84702

== ENCOUNTER → 2022-01-27 | Outpatient (CLI) | payer OTHER, SELFPAY ==
[2022-01-27 11:08] LABS: hCG Titer Quant., Serum 27790 mIU/mL (1-3)
== END | disposition home or self-care (01) ==
LOC: LAB 09:59
PROVIDERS: PCP Nurse Practitioner Family; Referring Provider Obstetrics & Gynecology; Visit Provider Obstetrics & Gynecology
DX: N93.9 Abnormal uterine and vaginal bleeding, unspecified (principal)
CPT/HCPCS: 36415; 84702

== ENCOUNTER → 2022-02-06 | Outpatient (CLI) | payer OTHER, SELFPAY ==
[2022-02-06 13:46] LABS: Amphetamine Urine VISTA NEGATIVE (<1000 ng/mL); Barbiturate Urine VISTA NEGATIVE (< 200 ng/mL); Benzodiazepine Urine VISTA NEGATIVE (< 200 ng/mL); Cocaine Urine VISTA NEGATIVE (< 300 ng/mL); Ecstacy Urine VISTA NEGATIVE (< 500 ng/mL); Methadone Urine VISTA NEGATIVE (< 300 ng/mL); PCP Urine VISTA NEGATIVE (< 25 ng/mL); THC Urine VISTA NEGATIVE (< 50 ng/mL); Vista UDS pH Range 8
[2022-02-08 00:07] LABS: Chlamydia By Nucleic Acid AMP Negative (Negative)
[2022-02-08 15:43] LABS: HPV Reflexed? NOT INDICATED
[2022-02-08 16:27] LABS: Gonococcus By Nucleic Acid AMP Negative (Negative)
== END | disposition home or self-care (01) ==
LOC: LAB 12:18
PROVIDERS: PCP Nurse Practitioner Family; Referring Provider Obstetrics & Gynecology; Visit Provider Obstetrics & Gynecology
DX: Z34.90 Encounter for supervision of normal pregnancy, unspecified, unspecified trimester (principal); Z12.4 Encounter for screening for malignant neoplasm of cervix
CPT/HCPCS: 80307; 87086; 87088; 87491; 87591; 88175; G0145

== ENCOUNTER → 2022-02-22 | Outpatient (CLI) | payer OTHER, SELFPAY ==
[2022-02-22 12:03] LABS: Absolute Lymphocyte Count 2.08 X10^3/uL (0.83-4.51); Absolute Neutrophil Count 6.6 X10^3/uL (2.0-7.7); Basophil# 0.06 X10^3/uL; Basophil% 0.6 % (0-1); Eosinophil# 0.18 X10^3/uL; Eosinophils% 1.9 % (0-5); Hematocrit 35.2 % (37-47); Hemoglobin 11.7 g/dL (12.0-15.0); Lymphocyte # 2.08 X10^3/ul (0.83-4.51); Lymphocyte % 21.4 % (19-41); Mean Corp Hgb Conc 33.2 g/dL (32-36); Mean Corpuscular Hgb 25.4 pg (27.0-32.0); Mean Corpuscular Volume 76.5 fL (81-99); Mean Platelet Vol. 9.9 fl (6.2-12.0); Monocyte% 7.2 % (0-10); NRBC Flagged by Analyzer 0 % (0-5); Neutrophil # 6.64 X10^3/uL (2.7-7.7); Neutrophil % 68.4 % (47-70); Platelet Count 336 K/mm3 (150-450); RBC Distribution Width CV 14.3 % (11.6-14.6); RBC Distribution Width SD 39.5 fl (35.1-43.9); White Blood Count 9.7 K/mm3 (4.4-11.0)
[2022-02-22 12:58] LABS: NATERA MAILED SPECIMEN
[2022-02-22 13:02] LABS: HIV - WCH Non-Reactive (Nonreactive); Hepatitis B Surface Antigen Non-Reactive (Nonreactive); Hepatitis C Antibody Non-Reactive (Nonreactive); Rubella IgG Reactive (Nonreactive); Syphilis Antibodies Non-reactive
== END | disposition home or self-care (01) ==
LOC: PAVLAB 11:47
PROVIDERS: PCP Nurse Practitioner Family; Referring Provider Obstetrics & Gynecology; Visit Provider Obstetrics & Gynecology
DX: Z34.81 Encounter for supervision of other normal pregnancy, first trimester (principal)
CPT/HCPCS: 36415; 85025; 86703; 86762; 86780; 86803; 86850; 86900; 86901; 87340

== ENCOUNTER → 2022-03-30 | Outpatient (CLI) | payer OTHER, SELFPAY ==
--- NOTE | 2022-03-30 12:39 | US_ITS ---
STUDY: SECOND AND THIRD TRIMESTER OBSTETRICAL ULTRASOUND - LIMITED REASON FOR EXAM: Female, 27 years old well being LMP: No PRIOR ULTRASOUND: None. TECHNIQUE: Transabdominal TECHNICAL QUALITY: Adequate. FINDINGS: There is a single intrauterine fetus. The fetus is in a cephalic presentation. There is demonstrated cardiac activity with a heart rate of 147 bpm. There is a normal amniotic fluid volume. The largest amniotic fluid pocket measures 3.7 cm x 2.6 cm. The amniotic fluid index (CATARINA) is within normal limits. cm. The placenta is posterior in location and is not low lying. There are Grade 0 placental changes. The cervix measures 3.3 cm in length. There is a 4.2 x 4.3 cm x 1.9 cm heterogeneous density in the region of the cervix. This may represent possible fibroid. BIOMETRY: Age by LMP: 15 weeks, 5 days. RONIT by LMP: 09/16/2022. US/OB Limited (No Biometrics) IMPRESSION: Single live intrauterine gestation with a mean gestational age of 15 weeks and 5 days by LMP. 4.2 cm x 4.3 cm x 1.9 cm solid density in the region of the cervix. Fibroid should be ruled out. Electronically Signed: Juan Diego Johnson MD at 14:23 EDT ,
== END | disposition home or self-care (01) ==
LOC: US 12:35
PROVIDERS: PCP Nurse Practitioner Family; Visit Provider Obstetrics & Gynecology
DX: O46.90 Antepartum hemorrhage, unspecified, unspecified trimester (principal); O09.90 Supervision of high risk pregnancy, unspecified, unspecified trimester; Z3A.00 Weeks of gestation of pregnancy not specified
CPT/HCPCS: 76815

== ENCOUNTER → 2022-06-12 | Outpatient (CLI) | payer OTHER, SELFPAY ==
[2022-06-12 10:53] LABS: Absolute Lymphocyte Count 2.11 X10^3/uL (0.83-4.51); Absolute Neutrophil Count 10.4 X10^3/uL (2.0-7.7); Basophil# 0.07 X10^3/uL; Basophil% 0.5 % (0-1); Eosinophil# 0.25 X10^3/uL; Eosinophils% 1.8 % (0-5); Hematocrit 33.1 % (37-47); Hemoglobin 10.5 g/dL (12.0-15.0); Lymphocyte # 2.11 X10^3/ul (0.83-4.51); Lymphocyte % 15.3 % (19-41); Mean Corp Hgb Conc 31.7 g/dL (32-36); Mean Corpuscular Hgb 25.1 pg (27.0-32.0); Mean Platelet Vol. 10.2 fl (6.2-12.0); Monocyte# 0.76 X10^3/uL; Monocyte% 5.5 % (0-10); NRBC Flagged by Analyzer 0 % (0-5); Neutrophil # 10.37 X10^3/uL (2.7-7.7); Platelet Count 354 K/mm3 (150-450); RBC Distribution Width CV 13.9 % (11.6-14.6); RBC Distribution Width SD 39.2 fl (35.1-43.9); Red Blood Count 4.19 M/mm3 (4.2-5.4); White Blood Count 13.8 K/mm3 (4.4-11.0)
[2022-06-12 10:57] LABS: Glucose Challenge Gest 1H 50g 101 mg/dL (70-140)
== END | disposition home or self-care (01) ==
PROVIDERS: PCP Nurse Practitioner Family; Referring Provider Obstetrics & Gynecology; Visit Provider Obstetrics & Gynecology
DX: O09.90 Supervision of high risk pregnancy, unspecified, unspecified trimester (principal); Z3A.00 Weeks of gestation of pregnancy not specified
CPT/HCPCS: 36415; 82950; 85025

== ENCOUNTER → 2022-07-24 | Outpatient (CLI) | payer OTHER, SELFPAY ==
[2022-07-24 12:05] LABS: Absolute Lymphocyte Count 1.79 X10^3/uL (0.83-4.51); Absolute Neutrophil Count 11.3 X10^3/uL (2.0-7.7); Basophil# 0.09 X10^3/uL; Basophil% 0.6 % (0-1); Eosinophil# 0.14 X10^3/uL; Hematocrit 35.2 % (37-47); Hemoglobin 10.9 g/dL (12.0-15.0); Lymphocyte # 1.79 X10^3/ul (0.83-4.51); Lymphocyte % 12.3 % (19-41); Mean Corpuscular Hgb 24.3 pg (27.0-32.0); Mean Corpuscular Volume 78.6 fL (81-99); Mean Platelet Vol. 10.6 fl (6.2-12.0); Monocyte# 0.86 X10^3/uL; Monocyte% 5.9 % (0-10); NRBC Flagged by Analyzer 0 % (0-5); Neutrophil % 77.9 % (47-70); Platelet Count 346 K/mm3 (150-450); RBC Distribution Width CV 14.6 % (11.6-14.6); RBC Distribution Width SD 41.8 fl (35.1-43.9); Red Blood Count 4.48 M/mm3 (4.2-5.4); White Blood Count 14.5 K/mm3 (4.4-11.0)
== END | disposition home or self-care (01) ==
LOC: PAVLAB 11:52
PROVIDERS: Obstetrics & Gynecology; PCP Nurse Practitioner Family; Referring Provider Nurse Practitioner Women's Health; Visit Provider Nurse Practitioner Women's Health
DX: D64.9 Anemia, unspecified (principal)
CPT/HCPCS: 36415; 85025

== ENCOUNTER 2022-08-09 19:08 | Outpatient (CLI) | payer OTHER, SELFPAY ==
[2022-08-09 19:16] VITALS: BMI 28.3
[2022-08-09 20:13] VITALS: BP 118/74; PULSE 87
[2022-08-09 20:14] VITALS: TEMP 36.4
[2022-08-09 20:28] LABS: Color, Urine Yellow (Yellow); Glucose, Dipstick Normal (Normal); Ketone-Dipstick 50 mg/dl (Negative); Leukocyte Esterase-Dipstick Negative /ul (Negative); Nitrite-Dipstick Negative (Negative); Occult Blood-Urine Negative /ul (Negative); Protein-Dipstick Negative (Negative); Urine Bilirubin Dipstick Negative (Negative); Urine Clarity Clear (Clear); Urine Urobilinogen Normal (Normal)
[2022-08-09] MEDS: Lactated Ringers 1,000 ML 999 ML IV (20:30)
[2022-08-09 20:48] LABS: Absolute Lymphocyte Count 2.63 X10^3/uL (0.83-4.51); Absolute Neutrophil Count 12.4 X10^3/uL (2.0-7.7); Basophil# 0.08 X10^3/uL; Basophil% 0.5 % (0-1); Eosinophil# 0.19 X10^3/uL; Eosinophils% 1.1 % (0-5); Hematocrit 29.9 % (37-47); Hemoglobin 9.5 g/dL (12.0-15.0); Lymphocyte # 2.63 X10^3/ul (0.83-4.51); Lymphocyte % 15.8 % (19-41); Mean Corp Hgb Conc 31.8 g/dL (32-36); Mean Corpuscular Hgb 23.9 pg (27.0-32.0); Mean Corpuscular Volume 75.3 fL (81-99); Mean Platelet Vol. 10.9 fl (6.2-12.0); Monocyte# 1.06 X10^3/uL; Monocyte% 6.4 % (0-10); NRBC Flagged by Analyzer 0 % (0-5); Neutrophil % 74.5 % (47-70); Platelet Count 320 K/mm3 (150-450); RBC Distribution Width CV 14.7 % (11.6-14.6); RBC Distribution Width SD 40.1 fl (35.1-43.9); Red Blood Count 3.97 M/mm3 (4.2-5.4); White Blood Count 16.6 K/mm3 (4.4-11.0)
[2022-08-09] MEDS: Betamethasone/Betamethasone 30 MG/5 ML Vial 12 MG IM (20:55)
--- NOTE | 2022-08-09 22:35 | OB.TRI.PN_ITS ---
Progress Notes Date of Service: 08/09/22 Progress Note: Patient presents for triage evaluation secondary to contractions FHT: 140 Moderate variability reactive no decelerations category I tracing [place]: irritability Contractions Assessment and plan: contractions Reactive NST, reassuring maternal and status patient discharged to home to follow-up as scheduled. See problem list details for additional plan information. Laboratory Studies: Laboratory Tests 08/09/22 08/09/22 08/09/22 Range/Units 20:30 20:30 20:15 WBC 16.6 H (4.4-11.0) K/mm3 RBC 3.97 L (4.2-5.4) M/mm3 Hgb 9.5 L (12.0-15.0) g/dL Hct 29.9 L (37-47) % MCV 75.3 L (81-99) fL MCH 23.9 L (27.0-32.0) pg MCHC 31.8 L (32-36) g/dL RDW Std Deviation 40.1 (35.1-43.9) fl RDW Coeff of Tabitha 14.7 H (11.6-14.6) % Plt Count 320 (150-450) K/mm3 MPV 10.9 (6.2-12.0) fl Immature Gran % (Auto) 1.700 H (0.0-0.9) % Neut % (Auto) 74.5 H (47-70) % Lymph % (Auto) 15.8 L (19-41) % [place] % (Auto) 6.4 (0-10) % Eos % (Auto) 1.1 (0-5) % Baso % (Auto) 0.5 (0-1) % Absolute Neuts (auto) 12.4 H (2.0-7.7) X10^3/uL Absolute Lymphs (auto) 2.63 (0.83-4.51) X10^3/uL Nucleated RBC % 0 (0-5) % Urine Color Yellow (Yellow) Urine Clarity Clear (Clear) Urine pH 6.0 (5.0 - 8.0) Ur Specific [place] 1.010 (1.002-1.030) Urine Protein Negative (Negative) mg/dl Urine Glucose (UA) Normal (Normal) mg/dl Urine Ketones 50 H (Negative) mg/dl Urine Occult Blood Negative (Negative) /ul Urine Nitrite Negative (Negative) Urine Bilirubin Negative (Negative) mg/dL Urine Urobilinogen Normal (Normal) mg/dl Ur Leukocyte Esterase Negative (Negative) /ul Blood Type O POSITIVE Antibody Screen NEGATIVE Charges/Coding Procedures Urinary/Genital [id number]: [id number] non-stress test Interp
== END 2022-08-09 23:25 | disposition home or self-care (01) ==
LOC: WPOUT 19:14 → WP 19:15
PROVIDERS: PCP Nurse Practitioner Family; Visit Provider Obstetrics & Gynecology
DX: O47.9 False labor, unspecified (principal); Z3A.00 Weeks of gestation of pregnancy not specified
CPT/HCPCS: 96365; 36415; 59025; 59050; 81002; 85025; 86850; 86900; 86901; 87086; 87088; 96367; 96372; 99221; J7120; G0378; J0696; J0702

== ENCOUNTER 2022-08-10 21:17 | Outpatient (CLI) | payer OTHER, SELFPAY ==
--- NOTE | 2022-08-10 21:28 | PCM.PN.BLA ---
Progress Note patient presents for her second dose of celestone only. She denies complaints nursing administered the injection and she was sent home. She will follow up in office next week
[2022-08-10] MEDS: Betamethasone/Betamethasone 30 MG/5 ML Vial 12 MG IM (22:10)
[2022-08-22 02:17] VITALS: BP 135/84; PULSE 104; TEMP 36.8
== END 2022-08-10 22:15 | disposition home or self-care (01) ==
LOC: WPOUT 21:21 → WP 21:22
PROVIDERS: PCP Nurse Practitioner Family; Visit Provider Obstetrics & Gynecology
DX: O09.219 Supervision of pregnancy with history of pre-term labor, unspecified trimester (principal); Z3A.00 Weeks of gestation of pregnancy not specified
CPT/HCPCS: 96372; 99221; G0378; J0702

== ENCOUNTER → 2022-08-16 | Outpatient (CLI) | payer OTHER, SELFPAY | END | disposition home or self-care (01) | LOC: LABSPEC 14:25 | PROVIDERS: PCP Nurse Practitioner Family; Referring Provider Obstetrics & Gynecology; Visit Provider Obstetrics & Gynecology | DX: O99.891 Other specified diseases and conditions complicating pregnancy (principal); N89.8 Other specified noninflammatory disorders of vagina; Z3A.00 Weeks of gestation of pregnancy not specified | CPT/HCPCS: 87070; 87081; 87205 ==

== ENCOUNTER 2022-08-22 02:55 | Inpatient (IN) | payer OTHER, SELFPAY ==
[2022-08-22] VITALS (45 sets, daily range): BP systolic 96–146; BP diastolic 53–77; PULSE 51–184; RESP 16; TEMP 36.4–38.1; O2SAT 97–100; BMI 28.6
[2022-08-22 02:56] LABS: ROM Internal Control Test YES-OK TO RESULT pt. (Internal QC)
[2022-08-22 02:57] LABS: ROM Patient Test POSITIVE (Negative)
[2022-08-22] MEDS: LACTATED RINGERS 500 ML 999 ML IV (03:41)
[2022-08-22 03:56] LABS: Absolute Neutrophil Count 14.8 X10^3/uL (2.0-7.7); Basophil% 0.5 % (0-1); Eosinophil# 0.14 X10^3/uL; Eosinophils% 0.7 % (0-5); Hematocrit 30.3 % (37-47); Hemoglobin 9.4 g/dL (12.0-15.0); Lymphocyte % 12.6 % (19-41); Mean Corpuscular Hgb 23.2 pg (27.0-32.0); Mean Corpuscular Volume 74.6 fL (81-99); Mean Platelet Vol. 10.5 fl (6.2-12.0); Monocyte% 6.3 % (0-10); NRBC Flagged by Analyzer 0 % (0-5); Neutrophil # 14.81 X10^3/uL (2.7-7.7); Neutrophil % 77.5 % (47-70); Platelet Count 355 K/mm3 (150-450); RBC Distribution Width CV 15.1 % (11.6-14.6); RBC Distribution Width SD 40.9 fl (35.1-43.9); Red Blood Count 4.06 M/mm3 (4.2-5.4); White Blood Count 19.1 K/mm3 (4.4-11.0)
[2022-08-22] MEDS: Lactated Ringers 1,000 ML 200 ML IV (04:12)
[2022-08-22] MEDS: fentaNYL-bupivacaine (epidural) 100 ML BAG EPIDURAL (04:35)
--- NOTE | 2022-08-22 06:25 | HP.PCM.OB_ITS ---
HPI - General General Date of Admission: 08/22/22 HPI Narrative AP SEN, is a 27 F who presents at 36+3 with steady consistent contractions and LOF. course complicated by abnormal chorion, UTI, persistent blakes's pouch cyst, uterine fibroid Maternal Data Information RONIT Calculator Estimated Delivery Date Method Current WG Current Estimate 09/16/22 LMP (Certain) 36w 3d PFSH PFSH Medical History (Updated 08/22/22 @ 02:31 by Maira Mendez) Abnormal Pap smear of cervix Anxiety Dysthymia Major depressive disorder, recurrent severe without psychotic features Persistent Iglesia's pouch cyst Uterine fibroid Home Medications vitamin#30 30 mg iron-10 mg iron-folic acid 1 mg-omg3 capsule 1 cap PO DAILY 02/06/22 [History Last Taken 08/21/22 14:00] Allergy/AdvReac Type Severity Reaction Status Date / Time No Known Allergies Allergy Verified 08/21/22 14:58 Surgical History History of dilation and curettage No significant past surgical history Social History household members: spouse housing: house current occupational status: employed 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[place] pets and animals: Yes Smoking Status: Never smoker second hand exposure: No alcohol intake: current details: not while substance use type: does not use seatbelt use: always do you feel safe at home: Yes additional social history: - Abran History 2 Elective abortions Hx Para 0 Spontaneous abortions 1 Hx # Term Pregnancies Ectopic pregnancies Hx # Pregnancies Multiple births # of living children Visit Details Expected Delivery Route/Plan Labor Preferences- CB/BF classes: yes labor support person: Abran labor intervention preferences: [] pain management options preferred: epidural cut cord/dad catch: yes : yes PP control planned: discussed discussed possible routes of delivery and associated risks: [] special requests: [] Plans Covid status: discussed Flu vaccine: declines Tdap vaccine: [] Rhogam: NA LARC form signed: yes Problem list reviewed and updated with the most current plan of care details and appropriate orders placed. Relevant counseling for the gestational age provided. Continue routine care and follow up unless otherwise noted in visit notes/problem list details OB Flowsheet Initial Weight: Not Recorded Date -?-?-?-?-?-?-?-?-?-?-?-?- EGA Weight BP Urine Prot -?-?-?-?-?-?-?-?-?-?-?-?- Glucose FHR FuHt Pres Dilation -?-?-?-?-?-?-?-?-?-?-?-?- Effaced St Visit Note 02/06/22 -?-?-?-?-?-?-?-?-?-?-?-?- 8w 2d 153 lb 118/76 -?-?-?-?-?-?-?-?-?-?-?-?- 180 160 -?-?-?-?-?-?-?-?-?-?-?-?- SM- CRL 1.6cm co ns with LMP SM- CRL 1.6cm cons with LMP, GS abnormality seen coming off edge into the cavity 5 mm in size no additional blood flow separate from pole 02/22/22 -?-?-?-?-?-?-?-?-?-?-?-?- 10w 4d 152 lb 104/72 -?-?-?-?-?-?-?-?-?-?-?-?- 160 -?-?-?-?-?-?-?-?-?-?-?-?- SM- fu ultrasoun d normal appearing sac discussed genetic testing if desired. 03/20/22 -?-?-?-?-?-?-?-?-?-?-?-?- 14w 2d 148 lb 2 oz 118/70 Nega tive -?-?-?-?-?-?-?-?-?-?-?-?- Negative 149 -?-?-?-?-?-?-?-?-?-?-?-?- JV- pt was in ER for severe bleeding which stopped abruptly after arrival. This was last week and she explained the bleeding as running down her leg. She has no further bleeding. On spec exam there is a small posterior cervical ectropion present. No subchorionic hemorrhage noted. pt is having a hard time with N/V and wants to try a reglan pump as zofran is not working. She has lost a little weight since her last visit. 04/17/22 -?-?-?-?-?-?-?-?-?-?-?-?- 18w 2d 151 lb 2 oz 110/78 Nega tive -?-?-?-?-?-?-?-?-?-?-?-?- Negative 152 -?-?-?-?-?-?-?-?-?-?-?-?- MH-[place] brown di scharge persists but no red bleeding. Feeling flutters. Nausea improved with reglan pump. Noting some sleep disturbance, anxiety with reglan. Will discuss with optum change to zofran. Declines med for anxiety/depression. Anatomy US/check fibroid 05/0705/02/22 -?-?-?-?-?-?-?-?-?-?-?-?- w 3d 155 lb 6 oz 116/76 Nega tive -?-?-?-?-?-?-?-?-?-?-?-?- Negative 143 -?-?-?-?-?-?-?-?-?-?-?-?- JV- no further b leeding, still nauseated but now has some depression. wants to try zoloft again. will start with 25 mg at bedtime. will keep an eye on the 4 cm fibroid near the cx and repeat ultrasound at 28 weeks. JV- no further bleeding, sti ll nauseated but now has some depression. wants to try zoloft again. will start with 25 mg at bedtime. will keep an eye on the 4 cm fibroid near the cx and repeat ultrasound at 32 weeks. 05/15/22 -?-?-?-?-?-?-?-?-?-?-?-?- 22w 2d 158 lb 4 oz 110/77 Nega tive -?-?-?-?-?-?-?-?-?-?-?-?- Negative 140 -?-?-?-?-?-?-?-?-?-?-?-?- JV- still holdin g on to the reglan pump. not ready to wean yet. JV- still holding on to the reglan pump. not ready to wean yet. anatomy ultrasound showed possible arachnoid cyst. pt to go back next week for follow up. 06/12/22 -?-?-?-?-?-?-?-?-?-?-?-?- 26w 2d 160 lb 8 oz 108/64 Nega tive -?-?-?-?-?-?-?-?-?-?-?-?- Negative 147 26 -?-?-?-?-?-?-?-?-?-?-?-?- MH-No VB, LOF. G danni Fm. Nausea resolved. 28 wk labs, page hospital. 06/26/22 -?-?-?-?-?-?-?-?-?-?-?-?- 28w 2d 163 lb 98/64 Negative -?-?-?-?-?-?-?-?-?-?-?-?- Negative 150 28 -?-?-?-?-?-?-?-?-?-?-?-?- MH-No VB, LOF. G ozhao FM. Saw MFM:iglesia pouch cyst:persists but stable. Future serial growth US and keith w FTC are all sched w/MFM. Patient states feels comfortable with plan of care. 07/10/22 -?-?-?-?-?-?-?-?-?-?-?-?- 30w 2d 166 lb 6 oz 131/80 Nega tive -?-?-?-?-?-?-?-?-?-?-?-?- Negative 135 30 Cephalic -?-?-?-?-?-?-?-?-?-?-?-?- JV- pt needs fol low up on the fibroid. She has an appt with MFM next week. will ask them to look at it. Needs rpt cbc. if less than 10 will offer iron due to inability to tolerate po 07/24/22 -?-?-?-?-?-?-?-?-?-?-?-?- 32w 2d 167 lb 4 oz 110/74 Nega tive -?-?-?-?-?-?-?-?-?-?-?-?- Negative 142 32 -?-?-?-?-?-?-?-?-?-?-?-?- MH-No VB, LOF. M FM us with adequate growth, no fibroid seen. Sched with FTC. CBC today 08/07/22 -?-?-?-?-?-?-?-?-?-?-?-?- 34w 2d 169 lb 113/76 Negative -?-?-?-?-?-?-?-?-?-?-?-?- Negative 45 34 Cephalic -?-?-?-?-?-?-?-?-?-?-?-?- JV- no lof, vagi nal bleeding, or dec fm, no complaints. 08/16/22 -?-?-?-?-?-?-?-?-?-?-?-?- 35w 4d 169 lb 4 oz 118/79 Nega tive -?-?-?-?-?-?-?-?-?-?-?-?- Negative 145 36 Cephalic 1 .5 -?-?-?-?-?-?-?-?-?-?-?-?- 60 -2 SM- irrgul ar ctx, incresaed discharge white clumpy, micro genitla culture sent, and gbs culture sent. no vb good fm 08/21/22 -?-?-?-?-?-?-?-?-?-?-?-?- 36w 2d 172 lb 4 oz 124/84 Nega tive -?-?-?-?-?-?-?-?-?-?-?-?- Negative 150 37 Cephalic 2 -?-?-?-?-?-?-?-?-?-?-?-?- 85 -2 JV- no lof , vaginal bleeding, or dec fm. gbs neg. labor precautions discussed. NST FHR Rate Baby A Baseline: 130 Variability:: Moderate Accelerations:: 15 x 15 Decelerations:: None NST Reactive:: Yes FHR Category:: Category I Uterine Activity:: q2-3 minutes ROS Cardiovascular Cardiovascular: Denies abdominal pain, chest pain, diaphoresis, dyspnea, edema or fatigue Respiratory/Chest Respiratory/Chest: Denies change in mental status, chest congestion, chest tightness, cough, shortness of breath at rest, shortness of breath with exertion, breast mass, breast pain, breast skin changes, breast swelling, change in breast shape or nipple discharge Gastrointestinal Gastrointestinal: Denies diarrhea, hemorrhoids, nausea, vomiting or weight changes Genitourinary Genitourinary: Denies abdominal discomfort, burning urination, change in libido, change in urinary stream, contractions, difficulty urinating, dysuria, movement, low back pain, urinary frequency, urinary hesitancy, urinary incontinence or urinary urgency Musculoskeletal Musculoskeletal: Reports none Integumentary Integumentary: Reports none Neurologic Neurologic: Reports none Psychiatric Psychiatric: Reports none Endocrine Endocrinology: Reports none Hematologic/Lymphatic Hematologic/Lymphatic: Reports none Allergic/Immunologic Allergic/Immunologic: Reports none Vital Signs Vital Signs Vital Signs: 08/22/22 03:26 08/22/22 03:26 08/22/22 03:48 Temperature Temperature Source Temporal Pulse Rate 94 Blood Pressure BP Systolic BP Diastolic Pulse Ox 97 08/22/22 03:48 08/22/22 03:58 08/22/22 03:58 Temperature 98.5 F Temperature Source Pulse Rate 100 Blood Pressure 113/64 BP Systolic 113 BP Diastolic 64 Pulse Ox 08/22/22 04:12 08/22/22 04:12 08/22/22 04:17 Temperature Temperature Source Pulse Rate 106 H 108 H Blood Pressure BP Systolic BP Diastolic Pulse Ox 100 08/22/22 04:17 08/22/22 04:23 08/22/22 04:23 Temperature Temperature Source Pulse Rate 111 H Blood Pressure 134/76 H BP Systolic 134 BP Diastolic 76 Pulse Ox 100 08/22/22 04:22 08/22/22 04:28 08/22/22 04:28 Temperature Temperature Source Pulse Rate 106 H Blood Pressure 122/68 H BP Systolic 122 BP Diastolic 68 Pulse Ox 100 08/22/22 04:27 08/22/22 04:32 08/22/22 04:32 Temperature Temperature Source Pulse Rate 98 Blood Pressure BP Systolic BP Diastolic Pulse Ox 100 100 08/22/22 04:33 08/22/22 04:33 08/22/22 04:37 Temperature Temperature Source Pulse Rate 101 H Blood Pressure 111/58 L 105/55 L BP Systolic 111 105 BP Diastolic 58 55 Pulse Ox 08/22/22 04:37 08/22/22 04:37 08/22/22 04:43 Temperature Temperature Source Pulse Rate 101 H Blood Pressure 146/66 H BP Systolic 146 BP Diastolic 66 Pulse Ox 100 08/22/22 04:43 08/22/22 04:42 08/22/22 04:47 Temperature Temperature Source Pulse Rate 115 H 111 H Blood Pressure BP Systolic BP Diastolic Pulse Ox 100 08/22/22 04:47 08/22/22 04:50 08/22/22 04:50 Temperature Temperature Source Pulse Rate 97 Blood Pressure 105/53 L BP Systolic 105 BP Diastolic 53 Pulse Ox 100 08/22/22 04:52 08/22/22 04:52 08/22/22 04:53 Temperature Temperature Source Pulse Rate 101 H Blood Pressure 108/56 L BP Systolic 108 BP Diastolic 56 Pulse Ox 100 08/22/22 04:53 08/22/22 04:57 08/22/22 04:57 Temperature Temperature Source Pulse Rate 100 101 H Blood Pressure BP Systolic BP Diastolic Pulse Ox 100 08/22/22 04:58 08/22/22 04:58 08/22/22 05:29 Temperature Temperature Source Pulse Rate 108 H Blood Pressure 106/70 111/61 BP Systolic 106 111 BP Diastolic 70 61 Pulse Ox 08/22/22 05:29 08/22/22 05:29 08/22/22 05:29 Temperature 97.6 F L Temperature Source Temporal Pulse Rate 184 H Blood Pressure BP Systolic BP Diastolic Pulse Ox 08/22/22 05:33 08/22/22 05:33 08/22/22 05:38 Temperature Temperature Source Pulse Rate 99 100 Blood Pressure BP Systolic BP Diastolic Pulse Ox 100 08/22/22 05:38 08/22/22 05:43 08/22/22 05:43 Temperature Temperature Source Pulse Rate 104 H Blood Pressure BP Systolic BP Diastolic Pulse Ox 100 100 08/22/22 06:13 08/22/22 06:13 08/22/22 06:13 Temperature Temperature Source Temporal Pulse Rate 100 Blood Pressure 96/62 BP Systolic 96 BP Diastolic 62 Pulse Ox 08/22/22 06:13 08/22/22 06:16 08/22/22 06:16 Temperature 98.2 F Temperature Source Pulse Rate 116 H Blood Pressure BP Systolic BP Diastolic Pulse Ox 100 Weight Weight: 172 lb Body Mass Index (BMI) 28.6 Physical Exam Const alert, oriented x3 and no apparent distress General Appearance: cooperative, comfortable and well kempt; Negative for in distress Orientation / Consciousness: awake and oriented to person Exam Limitations: no limitations HEENT normocephalic Mouth: oral and palatal mucosa normal Neck full ROM and thyroid normal Chest inspection of chest normal Resp normal respiratory effort Effort and Inspection: able to speak in complete sentences and symmetric chest movement Cardio regular rate Peripheral Pulses: pulses 2+ throughout GI normal to inspection, nondistended, normoactive bowel sounds Inspection: gravid no CVA tenderness and appearance of the vagina normal External Female Exam: normal appearance of the urethra; Negative for external lesion OB / External & Speculum: external exam normal Manual OB Exam: estimated gestational size appropriate and presentation cephalic Uterus Palpation: Negative for uterus tender Extremity normal to inspection Skin no rashes or lesions noted Neuro deep tendon reflexes 2+ bilaterally and gait normal Motor Exam: strength 5/5 throughout and clonus absent Psych Activity / Motor Behavior: appropriate eye contact Speech: normal speech Labs Labs Labs: Blood Type O POSITIVE Antibody Screen NEGATIVE Hct 30.3 % (37-47) L Hgb 9.4 g/dL (12.0-15.0) L Pap Smear Positive A* Obstetrics US Syphilis Total Ab Non-reactive Rubella IgG Antibody Reactive (Nonreactive) Hep Bs Antigen Non-Reactive (Nonreactive) Chlamydia DNA (ANDREY) Negative (Negative) Neisseria gonorrhoeae DNA (ANDREY) Negative (Negative) HIV 1&2 Antibody Non-Reactive (Nonreactive) Glucose 1 Hr 50 gm 101 mg/dL (70-140) Assessment & Plan (1) Supervision of high-risk : COMMENT: PRR RONIT 09/16/22 boy:Federico Abran (2) : QUALIFIERS: Weeks of gestation: 36 weeks Qualified Code(s): Z3A.36 - 36 weeks gestation of COMMENT: genetic and carrier screening discussed, NIPT low risk (3) Abnormal chorion: COMMENT: 5mm area seen arising into GS no color flow seen, viable IUP seen;occa old dark discharge (4) UTI in : COMMENT: seen in triage, ceftriaxone dose then keflex given. (5) Persistent Iglesia's pouch cyst: COMMENT: 07/24- 7mm cyst persistent stable, patient declined FTC referral plan FU after delivery. confirmed with jesusita rios for delivery in [place]. 1 MFM 06/20: stable but persists. (6) Uterine fibroid: COMMENT: repeat US @ 20 wks:05/07/22- still shows fibroid present near cervix. rpt again at 32 weeks PLAN: Plan Patient presents IAL at 36+3 Pain management: comfortable with epidural. GBS neg. Management of any complications: pedmariusz aware of admit, high risk PPH I have reviewed the PFSH and made any clinically relevant updates. Dr. Lantigua aware of admission, POC and agrees with co-management of care.
[2022-08-22] MEDS: Oxytocin 10 UNITS/ML Vial IM ×2 (07:12→08:10)
[2022-08-22] MEDS: Oxytocin 15 Units/NS 250ml 15 UNITS/250 ML IV.SOLN 83 UNITS IV (07:13)
[2022-08-22] MEDS: Methylergonovine 0.2 MG/ML Ampul IM (07:26)
--- NOTE | 2022-08-22 07:31 | OP.PCM_ITS ---
Assessment & Plan (1) (spontaneous vaginal delivery): COMMENT: IAL @36+3. . boy: PETEY herrera (2) Persistent Iglesia's pouch cyst: COMMENT: 07/24- 7mm cyst persistent stable, patient declined FTC referral plan FU after delivery. confirmed with jesusita rios for delivery in [place]. 1 MFM 06/20: stable but persists. (3) Uterine fibroid: COMMENT: repeat US @ 20 wks:05/07/22- still shows fibroid present near cervix. rpt again at 32 weeks PLAN: Plan s/p PPD # 0 1. routine post delivery care 2. breast feeding- support given 3. rh positive 4. rubella immune Maternal Data Information RONIT Calculator Estimated Delivery Date Method Current WG Current Estimate 09/16/22 LMP (Certain) 36w 3d Vaginal Delivery Maternal Presentation Maternal Presentation: Active Labor Operative Information Date of Procedure: 08/22/22 Pre-Operative Diagnosis: Post-Operative Diagnosis: Surgery / Procedure Performed: Spontaneous Vaginal Delivery Type of Anesthesia: Epidural Drain: Pena to straight drain Estimated Blood Loss: 400 Time of Delivery: 07:00 Findings Description of Procedure: Patient began pushing and delivered the head in the BRIJESH presentation. The head was delivered atraumatically and a tight nuchal cord ?2 was identified and somersaulted and then easily reduced over the 's head. The anterior and posterior shoulders delivered without complication followed by the rest of the infant and the was placed on the maternal abdomen. Delayed cord clamping was employed for approximately 60 seconds. Cord was clamped and cut and gentle traction was applied to the cord and the placenta delivered spontaneously immediately following it was noted to be intact with three-vessel cord. The perineum and vagina were inspected and noted to have 1st degree laceration, repaired with 3-0 rapid in usual fashion. bilateral periurethral tears, non- bleeding. EBL was 400cc. Patient and tolerated delivery well, entered recovery period bonding skin to skin. Presentation: Vertex Amniotic Membrane Rupture Type: Spontaneous Amniotic Fluid Description: Clear Placental Delivery Description: Spontaneous Placenta Disposition: [facility] Cord Vessel Description: 3 Vessels Cord Entanglement: Around neck x 2, tight Nuchal Cord Compression: Without compression Infant A Gender: Male (1 minute): 8 (5 minute): 9 Delayed Cord Clamping: Yes Post Vaginal Delivery Medications Given After Delivery: IV Pitocin and IM Methergin Laceration: Midline and 1st degree Complication Complications: - (fundus deviated to left, methergine provided. pena draining clear yellow urine) Procedures Urinary/Genital [id number]: [id number] Vaginal Delivery global pkg (CNM DELIVERY)
--- NOTE | 2022-08-22 07:35 | NURSING ---
this RN reviewed documentation done by Arsenio RUTH and agrees with charting
[2022-08-22] MEDS: 0.9% Saline Lock 10 ML Syringe IV (10:05)
[2022-08-22] MEDS: Benzocaine/Lanolin/Aloe Vera 1 SPRAY EACH TOPICAL (10:05)
[2022-08-22] MEDS: Cephalexin 500 MG Capsule PO ×2 (14:38→23:30)
[2022-08-22] MEDS: Acetaminophen 500 MG Tablet 1000 MG PO (20:36)
[2022-08-23] VITALS (10 sets, daily range): BP systolic 98–110; BP diastolic 57–69; PULSE 87–110; RESP 14–16; TEMP 36.3–36.4; O2SAT 96–98
--- NOTE | 2022-08-23 08:03 | PN.OBGYN_ITS ---
Subjective Subjective Patient doing well without complaints. Tolerating PO. Ambulating and voiding without difficulty. Feeding well. Denies chest pain, shortness of breath, calf pain/swelling, fevers, chills, lightheadedness. Objective Data Objective Data Vital Signs: Vital Signs Temp Pulse Resp BP Pulse Ox O2 Del Method 97.6 F L 101 H 16 101/63 98 Room Air 08/23/22 03:48 08/23/22 03:48 08/23/22 03:48 08/23/22 03:48 08/23/22 03:48 08/23/22 03:48 Oxygen Delivery Method Room Air Weight: 172 lb Body Mass Index (BMI) 28.6 Intake & Output: Intake and Output for Last 24 Hours 08/21/22 08/22/22 08/23/22 23:59 23:59 23:59 Intake Total 2753.33 / 2753.33 Output Total 3450 / 3450 Balance -696.67 / -696.67 Lab / Micro Data Result Diagrams: 08/22/22 03:40 Physical Exam Const alert and oriented x3 HEENT normocephalic Eyes PERRL Neck full ROM Resp normal respiratory effort GI soft to palpation GI Narrative: FF below U Assessment & Plan (1) (spontaneous vaginal delivery): COMMENT: IAL @36+3. . boy: javier PETEY (2) Depression: COMMENT: counseling encouraged no meds at present; declines med; sta ble;start medication at 36 wk (3) Anemia: COMMENT: daily FE, recheck CBC 4 weeks- 07/24:stable PLAN: Plan s/p PPD # 1 1. routine post delivery care 2. breast feeding- support given 3. rh positive 4. rubella immune
[2022-08-23] MEDS: Naproxen 500 MG Tablet PO (10:21)
[2022-08-23] MEDS: Cephalexin 500 MG Capsule PO (10:21)
--- NOTE | 2022-08-23 10:42 | PCM.DC ---
Discharge Instructions Diet Discharge Diet: No restrictions Activity Discharge Activity: Return to Normal Activity, May Not Drive (while taking narcotic pain medications.) and May Shower May resume sexual activity in: 4-6 weeks Dressing / Incision Call your doctor if your incision/area has: Continuous Slow Oozing, Sudden Increased Bleeding, Increased Pain/ Swelling, Increased Redness and Foul Smelling Discharge Follow Up Care Please Follow Up With: Kamini Vazquez DO When: Call [phone] to make an appointment with your doctor in 6 weeks. If you had elevated blood pressure or 4th degree laceration, you will need to be seen in 2 weeks. Test Results: Test results from this visit will be discussed in further detail at your follow-up appointment, if applicable. Discharge Plan Admission Admit Date/Time: 08/22/22 02:55 Primary Reason for Your Visit: vaginal delivery Attending Provider: Bernadette Montes De Oca Primary Care Provider: Sujatha Oconnor NP Discharge Orders/Prescriptions Prescriptions: New naproxen 500 mg tablet 500 mg PO BID PRN (Reason: pain) Qty: 30 0RF No Action PNV #[id number] 30 mg iron-10 mg iron-1 mg capsule 1 cap PO DAILY Referrals / Follow Up: Sujatha Oconnor NP, [employer] [Primary Care Provider] - Disposition Disposition (needs filled in before D/C Order can be placed): Home, Self Care
[2022-08-23] MEDS: Acetaminophen 500 MG Tablet 1000 MG PO (12:43)
== END 2022-08-23 19:20 | disposition home or self-care (01) | DRG 806 ==
LOC: WP 02:59 → WPOUT 08-23 10:48
PROVIDERS: Obstetrics & Gynecology; Admitting Provider Registered Nurse; PCP Nurse Practitioner Family; Referring Provider Registered Nurse; Visit Provider Registered Nurse
DX: O60.14X0 Preterm labor third trimester with preterm delivery third trimester, not applicable or unspecified (principal); Z37.0 Single live birth; O23.43 Unspecified infection of urinary tract in pregnancy, third trimester; F33.2 Major depressive disorder, recurrent severe without psychotic features; F41.9 Anxiety disorder, unspecified; Z3A.36 36 weeks gestation of pregnancy; O34.13 Maternal care for benign tumor of corpus uteri, third trimester; D25.9 Leiomyoma of uterus, unspecified; O69.81X0 Labor and delivery complicated by cord around neck, without compression, not applicable or unspecified; O70.0 First degree perineal laceration during delivery; O99.02 Anemia complicating childbirth; O99.344 Other mental disorders complicating childbirth; O99.893 Other specified diseases and conditions complicating puerperium; O35.8XX0 Maternal care for other (suspected) fetal abnormality and damage, not applicable or unspecified
CPT/HCPCS: 59025; 59050; 84112; 85025; 86850; 86900; 86901; 99221; J7120; A4216; G0378

== ENCOUNTER → 2025-05-26 | Outpatient (CLI) | payer OTHER, SELFPAY ==
[2025-05-26 15:11] LABS: hCG Titer Quant., Serum 20 mIU/mL (<9 non-preg)
--- OUTSIDE RECORDS SUMMARY | 2025-05-26 16:15 | XMS RPT_ITS | CCD ---
Author Organization [facility] Care Team Providers Care Minute Clerk Name Role Phone MURPHY PAIZ () Unavailable Unav ailable STONE RENDON Unavailable Unavailable Oconnor, Sujatha J Unavailable Dominga Sepulveda Unavailable Unavailchilo OCONNOR, SUJATHA J Primary Care Unavailable HECK, SHILOH F Attending Unavailable NGOZI, CHERI S Referring Unavailable OCONNOR, SUJATHA J Primary Care Unavailable ENID PRESLEY Attending Unavailable NGOZI, CHERI S Referring Unavailable OCONNOR, SUJATHA J Primary Care Unavailable HECK SHILOH F Attending Unavailable NGOZI, CHERI S Referring Unavailable OCONNOR, SUJATHA J Primary Care Unavailable HECK SHILOH F Attending Unavailable NGOZI, CHERI S Referring Unavailable KAMINI ARANDA Referring Unavailab le ELVIN, SUJATHA J Primary Care Unavailable ОЛЕГ HECKICE F Attending Unavailable Elvin FORESTRY WORKER, Sujatha Primary Care Unavailable Kamini Vazquez Referring UnavailKamini Alex Attending Unavailabl osiel Melvin FORESTRY WORKER, Cheri Referring Unavailable Ngozi FORESTRY WORKER, Cheri Attending Unavailable Elvin FORESTRY WORKER, Sujatha Primary Care Unavailable Kristel Clement Attending Unavailable Kristel Clement Consulting Unavailable Elvin FORESTRY WORKER, Sujatha Primary Care Unavailable Kamini Vazquez Attending Unavailchilo Oconnor FORESTRY WORKER, Sujatha Primary Care Unavailable Kristel Clement Attending Unavailable Elvin FORESTRY WORKER, Sujatha Primary Care Unavailable Kristel Clement Referring Unavailable Kristel Clement Attending Unavailable Elvin FORESTRY WORKER, Sujatha Primary Care Unavailable Kristel Clement Attending Unavailable Elvin FORESTRY WORKER, Sujatha Primary Care Unavailable Bernadette Montes De Oca Attending Unavailable Bernadette Montes De Oca Referring Unavailable Bernadette Montes De Oca Admitting Unavailable Elvin FORESTRY WORKER, Sujatha Primary Care Unavailable Montes De Oca, Bernadette Attending Unavailable Kamini Vazquez Admitting Unavailabl e Kamini Vazquez Consulting Unavailabl e Oconnor FORESTRY WORKER, [facility] Primary Care Unavailable Kamini Vazquez Attending Unavailabl e Marco Antonioe Kamini Linton Consulting Unavailabl e Oconnor FORESTRY WORKER, [facility] Primary Care Unavailable Kamini Vazquez Attending Unavailabl e Oconnor FORESTRY WORKER, [facility] Primary Care Unavailable Oconnor FORESTRY WORKER, Sujatha Referring Unavailable Charlotte FORESTRY WORKER, Cheri Attending Unavailable Oconnor FORESTRY WORKER, Sujatha Primary Care Unavailable Oconnor FORESTRY WORKER, Sujatha Referring Unavailable Fortune FORESTRY WORKER, Lola Attending Unavailable Oconnor FORESTRY WORKER, Sujatha Referring Unavailable Oconnor FORESTRY WORKER, [facility] Primary Care Unavailable Kamini Vazquez Attending Unavailabl e Oconnor FORESTRY WORKER, [facility] Primary Care Unavailable Oconnor FORESTRY WORKER, Sujatha Referring Unavailable Oconnor FORESTRY WORKER, Sujatha Primary Care Unavailable Ngozi FORESTRY WORKER, Cheri Attending Unavailable Oconnor FORESTRY WORKER, Sujatha Referring Unavailable Montes De OcaCiroBernadette Consulting Unavailable Montes De Oca Bernadette Referring Unavailable Montes De Oca Bernadette Admitting Unavailable Ngozi FORESTRY WORKER, Cheri Attending Unavailable Ngozi FORESTRY WORKER, Cheri Attending Unavailable Oconnor FORESTRY WORKER, Sujatha Referring Unavailable Oconnor FORESTRY WORKER, Sujatha Primary Care Unavailable Kamini Vazquez Attending Unavailabl e Oconnor FORESTRY WORKER, Sujatha Referring Unavailable Oconnor FORESTRY WORKER, [facility] Primary Care Unavailable Kamini Vazquez Attending Unavailabl e Oconnor FORESTRY WORKER, [facility] Primary Care Unavailable Oconnor FORESTRY WORKER, Sujatha Referring Unavailable Fortune FORESTRY WORKER, Lola Attending Unavailable Oconnor FORESTRY WORKER, Sujatha Primary Care Unavailable Oconnor FORESTRY WORKER, Sujatha Referring Unavailable Montes De OcaCiroBernadette Attending Unavailable Oconnor FORESTRY WORKER, Sujatha Primary Care Unavailable Oconnor FORESTRY WORKER, Sujatha Referring Unavailable Kristel Clement Attending Unavailable Oconnor FORESTRY WORKER, Sujatha Primary Care Unavailable Oconnor FORESTRY WORKER, Sujatha Referring Unavailable GabrieleonyKristel Referring Unavailable GabrieleonyKristel Attending Unavailable Oconnor FORESTRY WORKER, Sujatha Primary Care Unavailable Ngozi FORESTRY WORKER, Cheri Attending Unavailable Oconnor FORESTRY WORKER, Sujatha Referring Unavailable Oconnor FORESTRY WORKER, Sujatha Primary Care Unavailable Kamini Vazquez Attending Unavailabl e Oconnor FORESTRY WORKER, [facility] Primary Care Unavailable Oconnor FORESTRY WORKER, Sujatha Referring Unavailable Charlotte FORESTRY WORKER, Cheri Attending Unavailable Oconnor FORESTRY WORKER, Sujatha Primary Care Unavailable Oconnor FORESTRY WORKER, Sujatha Referring Unavailable Kamini Vazquez Attending Unavailchilo e Oconnor FORESTRY WORKER, Sujatha Primary Care Unavailable Elvin FORESTRY WORKER, Sujatha Referring Unavailable Kristel Clement Attending Unavailable Oconnor FORESTRY WORKER, Sujatha Referring Unavailable Oconnor FORESTRY WORKER, Sujatha Primary Care Unavailable Kristel Clement Attending Unavailable Oconnor FORESTRY WORKER, Sujatha Referring Unavailable Oconnor FORESTRY WORKER, Sujatha Primary Care Unavailable Kristel Clement Attending Unavailable Kristel Clement Referring Unavailable Elvin FORESTRY WORKER, Sujatha Primary Care Unavailable NO, PHYSICIAN Primary Care Unavailable BRAYAN DHALIWAL Attending Unavailable Medications Current Medications Medication Drug Class(es) Dates Sig (Normalized) Sig (Original) cephalexin 500 mg oral tablet (1 source) Cephalosporin Antibacterial Start: 03-13-2022 End: 03-19-2022 take 1 tablet by mouth three times daily cephalexin 500 mg oral tablet ; 1 tab(s) orally 3 times a day x 7 days Quantity: 21 Refills: 0 Ordered: 13-Mar-2022 Dominga Sepulveda Start: 13-Mar-2022 End: 19-Mar-2022 Generic Substitution Allowed Comments: Finish all this medication unless otherwise directed by prescriber. Comment on above: Finish all this medi cation unless otherwise directed by prescriber. hydrOXYzine hydrochloride 25 mg oral tablet (1 source) Antihistamine HYDROXYZINE HCL 25 MG TABLET ; 1 tab(s) orally once a day, As Needed - for anxiety Quantity: 0 Refills: 2 Ordered: 13-Mar-2022 Ninfa Jimenez Generic Substitution Allowed Comments: Source=[place], Medication=HYDROXYZI NE HCL 25 MG TABLET, OriginatingSource=[facility] OriginatingProvider= ABDI COLINDRES, Duration=30, Refills=2, Date Last Modified/Filled= Comment on above: Source=[facility], Medication=HYDROXYZINE HCL 25 MG TABLET, OriginatingSource=[place] [facility] OriginatingProvider=ABDI COLINDRES, Duration=30, Refills=2, Date Last Modified/Filled=18-Oct-2021 ondansetron 4 mg disintegrating oral tablet (1 source) Serotonin-3 Receptor Antagonist take 1 tablet by mouth every eight hours as needed ONDANSETRON ODT 4 MG TABLET ; 1 tab(s) orally every 8 hours, As Needed - for nausea and vomiting Quantity: 0 Refills: 0 Ordered: 13-Mar-2022 Ninfa Jimenez Generic Substitution Allowed Comments: Source=[place], Medication=ONDANSETR ON ODT 4 MG TABLET, OriginatingSource=[facility] OriginatingProvider= KAMINI ARANDA, Duration=8, Date Last Modified/Filled= Comment on above: Source=[place], Medication=ONDANSETRON ODT 4 MG TABLET, OriginatingSource=[place] [facility] OriginatingProvider=KAMINI ARANDA, Duration=8, Date Last Modified/Filled=23-Feb-2022 prochlorperazine 10 mg oral tablet (1 source) Phenothiazine take 1 tablet by mouth every eight hours as needed PROCHLORPERAZINE 10 MG TAB ; 1 tab(s) orally every 8 hours, As Needed - for nausea and vomiting Quantity: 0 Refills: 0 Ordered: 13-Mar-2022 Ninfa Jimenez Generic Substitution Allowed Comments: Source=[place], Medication=PROCHLORP ERAZINE 10 MG TAB, OriginatingSource=[facility] OriginatingProvider= KRISTEL CLEMENT, Duration=30, Date Last Modified/Filled= Comment on above: Source=[place], Medication=PROCHLORPERAZINE 10 MG TAB, OriginatingSource=[place] [facility] OriginatingProvider=KRISTEL CLEMENT, Duration=30, Date Last Modified/Filled=22-Feb-2022 Problems Active Problems Problem Classification Problem Date Documented Date Episodic/Chronic Conditions associated with dizziness or vertigo (2 sources) Labyrinthitis, unspecified ear; Translations: [Labyrinthitis, unspecified ear] Onset: 05-10-2023 Episodic Menopausal disorders (1 source) Postmenopausal atrophic vaginitis; Translations: [Postmenopausal atrophic vaginitis] Onset: 10-23-2022 Chronic Mood disorders (2 sources) Major depressive disorder, single episode, unspecified; Translations: [Major depressive disorder, single episode, unspecified] Onset: 08-21-2022 Chronic Nervous system congenital anomalies (2 sources) 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; Translations: [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] Onset: 08-21-2022 Chronic Other complications of (1 source) Asymptomatic bacteriuria in ; Translations: [Asymptomatic bacteriuria in , unspecified as to episode of care or not applicable] 03-13-2022 Episodic Unclassified (2 sources) 13 WEEKS AND BLEEDING 03-13-2022 Comment on above: 13 WEEKS AN D BLEEDING Unclassified (1 source) Asymptomatic bacteriuria in 03-13-2022 Unclassified (1 source) Vaginal bleeding in 03-13-2022 Unclassified (1 source) Other specified diseases and conditions complicating ; Translations: [Other specified diseases and conditions complicating ] Onset: 08-27-2022 Past or Other Problems Problem Classification Problem Date Documented Date Episodic/Chronic Benign neoplasm of uterus (2 sources) Leiomyoma of uterus, unspecified; Translations: [Leiomyoma of uterus, unspecified] Onset: 08-21-2022 Episodic Deficiency and other anemia (2 sources) Anemia, unspecified; Translations: [Anemia, unspecified] Onset: 08-21-2022 Episodic Early or threatened labor (1 source) False labor, unspecified; Translations: [False labor, unspecified] Onset: 08-21-2022 Episodic Hemorrhage during ; abruptio placenta; placenta previa (2 sources) Bleeding from female genital tract during ; Translations: [Unspecified antepartum hemorrhage, antepartum condition or complication] Onset: 08-21-2022 03-13-2022 Episodic Other complications of (2 sources) Supervision of high risk , unspecified, unspecified trimester; Translations: [Supervision of high risk , unspecified, unspecified trimester] Onset: 08-21-2022 Episodic Other complications of (2 sources) Unspecified infection of urinary tract in , unspecified trimester; Translations: [Unspecified infection of urinary tract in , unspecified trimester] Onset: 08-21-2022 Episodic Other complications of (1 source) Mild hyperemesis gravidarum; Translations: [Mild hyperemesis gravidarum] Onset: 08-21-2022 Episodic Other complications of (1 source) Supervision of with history of pre-term labor, unspecified trimester; Translations: [Supervision of with history of pre-term labor, unspecified trimester] Onset: 08-22-2022 Episodic Other and delivery including normal (4 sources) Encounter for supervision of other normal , third trimester; Translations: [Encounter for full-term uncomplicated delivery] Onset: 02-09-2022 Episodic Other screening for suspected conditions (not mental disorders or infectious disease) (1 source) Unspecified abnormal cytological findings in specimens from cervix uteri; Translations: [Unspecified abnormal cytological findings in specimens from cervix uteri] Onset: 08-21-2022 Episodic Residual codes; unclassified (2 sources) 36 weeks gestation of ; Translations: [36 weeks gestation of ] Onset: 08-21-2022 Episodic Residual codes; unclassified (1 source) 34 weeks gestation of ; Translations: [34 weeks gestation of ] Onset: 08-07-2022 Episodic Residual codes; unclassified (1 source) 30 weeks gestation of ; Translations: [30 weeks gestation of ] Onset: 07-10-2022 Episodic Residual codes; unclassified (1 source) 22 weeks gestation of ; Translations: [22 weeks gestation of ] Onset: 06-12-2022 Episodic Residual codes; unclassified (1 source) 10 weeks gestation of ; Translations: [10 weeks gestation of ] Onset: 02-22-2022 Episodic Results Test Name Value Interpretation Reference Range Facility MR/[place]orgito 01-30-2023 MR/[address] [address] OFFICE VISIT Date of Service: 01/28/23 MR#: [id number] Acct: [id number] Name: PEYTON SEN Rep #: [id number] : 1995 Provider: Lola Coy NP Age/Sex: 28/F Location: [facility] [place] Status: Signed Intake Vital Signs 10/23/22 13:36 01/30/23 06:11 Height 5 ft 5 in 5 ft 5 in Intake Visit Reasons: Nipple Pain Chief Complaint: Nipple pain with pumping Allergies No Known Allergies Allergy (Verified 10/23/22 13:30) [facility] Medical History (Updated 10/23/22 @ 13:43 by Cheri Melvin NP, FORESTRY WORKER-C) Abnormal Pap smear of cervix Anxiety Dysthymia Major depressive disorder, 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 (spontaneous vaginal delivery) Uterine fibroid Surgical History History of dilation and curettage No significant past surgical history Social History household members: spouse housing: house current occupational status: employed 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 History provided by the patient. ROS ROS Const Constitutional: Denies fever(s) or lethargy : Denies nipple discharge Skin Skin/Breast: Denies breast pain, breast skin changes or nipple discharge Details: returned to work about 2 months ago- working 3 days per week and slowly pain with pumping worsened, pumping 2-4 oz per pumping session, have noticed nipples cracking in the center, pain is sharp and last until about 30 minutes after patient stops pumping, fitted herself for flange size and is using size 19 inserts, some discomfort with latching but manageable and much better than pumping Exam Maternal Assessment Breast Assessment Bilateral Breasts: Full Nipple Assessment Bilateral Nipples: Everted Areolar Tissue Areolar Tissue: Pliable Assessment Baby Feeding History Number of Breast Feedings in 24 hours: feeding on demand when home q 2-3 hours, longer stretch at night Minutes per breast: First Breast: 10 Minutes per breast: Second Breast: 10 Breast Pumping Type of Breast Pump: Nathalie Frequency: q3-4 hours when at works Amount: 2-4 oz Goals Breast Feeding Goals: Exclusive Exam Const General: comfortable and no acute distress Orientation: alert and oriented x3 Chest Breast inspection: normal inspection of the breasts Breast palpation: normal palpation of the breasts Other: bilateral nipples slight reddened, crack to center of left nipple, no bleeding present Resp Effort Inspection: normal respiratory effort Skin General: no rashes or lesions noted Psych Appearance: grossly normal Mental Status: mental status grossly normal Affect: normal affect Assessment and Plan Assessment and Plan (1) nipple pain: Plan: Combination nipple cream ordered 4x daily, educated on use. Observed patient pumping and recommended flange size 21. Nipple appears to be swelling and after pumping a couple of minutes is white. CAn use warm compress on it as needed after pumping. Follow up if no improvement or for any new/worsening symptoms. (2) Care and examination of lactating mother: Plan: Plan as above. Coding Level of Care Code Off vis,est,level 3 Diagnoses nipple pain O92.29 Care and examination of lactating mother Z39.1 01/30/23 0619 Date Lola Jolly Signature: Date (if applicable) CC: Normal [facility] Supervisor [employer] Office Visit Reporton 10-23-2022 Supervisor [employer] Office Visit Report [facility] [address] [place] [address] OFFICE VISIT Date of Service: 10/23/22 MR#: [id number] Acct: [id number] Name: PEYTON SEN Rep #: [id number] : 1995 Provider: JORDAN mcgarry Age/Sex: 27/F [place] [facility] [place] Status: Signed Intake Vital Signs 10/23/22 11:58 10/23/22 13:36 Height 5 ft 5 in 5 ft 5 in Weight: 149 lb 8 oz BMI 24.8 BP 124/72 H Intake Visit Reasons: post pelvic pains Chief Complaint: Post pelvic pain [employer] Maker Helper Required: No Is patient in pain?: No Allergies No Known Allergies Allergy (Verified 10/23/22 13:30) Medications vitamin#30 30 mg iron-10 mg iron-folic acid 1 mg-omg3 capsule 1 cap PO DAILY 02/06/22 [History Confirmed 10/23/22] estradiol 0.01% (0.1 mg/gram) vaginal cream See Rx Instructions vaginal .COMPLEX #42.5 grams 10/23/22 [Rx Confirmed 10/23/22] Is last menstrual period known: No Post menopausal: No Patient : No : Yes [facility] Medical History (Updated 10/23/22 @ 13:43 by Cheri Melvin FORESTRY WORKER, FORESTRY WORKER-C) Abnormal Pap smear of cervix Anxiety Dysthymia Major depressive disorder, 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 (spontaneous vaginal delivery) Uterine fibroid Surgical History History of dilation and curettage No significant past surgical history Social History household members: spouse housing: house current occupational status: employed 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 She is 8 weeks postpartem and states has done well otherwise. Had normal 6 wk pp exam 2 weeks ago. History 2 Elective abortions Hx Para 0 Spontaneous abortions 1 Hx # Term Pregnancies Ectopic pregnancies Hx # Pregnancies Multiple births # of living children ROS Const Constitutional: Reports system reviewed and no additional complaints, except as documented Eyes Eyes: Reports system reviewed and no additional complaints, except as documented GI GI: Denies abdominal pain or change in bowel habits : Reports as per HPI Exam Const General: cooperative and no acute distress Orientation: oriented x3 HENMT Head: normal to inspection and normocephalic Eyes General: appearance normal, both eyes and all related structures Neck Neck: normal visual inspection Resp Effort Inspection: normal respiratory effort Neuro Cognition: normal cognition Speech: speech normal Psych Appearance: grossly normal Mood: congruent mood Affect: normal affect Speech and Movement: speech and movement normal Attitude: cooperative Judgment: judgment good Coding Level of Care Code Off vis,est,level 2 Diagnoses Atrophic vaginitis N95.2 Assessment and Plan Assessment and Plan (1) Atrophic vaginitis: Medications: New estradiol 0.01%(0.1mg/gram) small amount as directed vaginal daily X 4 weeks then twice a week; 42.5 grams 2RF Plan Discussed use, benefits, risks and side effects of estradiol cream and Rx sent Use lubricant like coconut oil with intercourse and positioning for her to control penetration. RTO prn 10/23/22 1344 Date Cheri Melvin NP FORESTRY WORKER-C Cosigner Signature: Date (if applicable) CC: Normal [facility] Supervisor [employer] Office Visit Reporton 10-03-2022 Supervisor [employer] Vehicle [employer] Office Visit Report [facility] [address] [place] [address] OFFICE VISIT Date of Service: 10/03/22 MR#: [id number] Acct: [id number] Name: PEYTON SEN Rep #: [id number] : 1995 Provider: KAM torres Age/Sex: 27/F [place] [facility] [place]: Signed Intake Vital Signs 08/22/22 02:04 09/17/22 15:31 10/03/22 14:09 10/03/22 14:11 Height 5 ft 5 in 5 ft 5 in 5 ft 5 in 5 ft 5 in Weight: 149 lb 8 oz BMI 24.8 BP 137/83 H Intake Visit Reasons: 6 WK PP Chief Complaint: pt here for 6 week visit. [employer] Maker Helper Required: No Is patient in pain?: No Allergies No Known Allergies Allergy (Verified 10/03/22 14:10) Medications vitamin#30 30 mg iron-10 mg iron-folic acid 1 mg-omg3 capsule 1 cap PO DAILY 02/06/22 [History Confirmed 08/22/22] naproxen 500 mg tablet 500 mg PO BID PRN pain #30 tabs 08/23/22 [Rx] PFSH Medical History Abnormal Pap smear of cervix Anxiety Dysthymia Major depressive disorder, 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 Uterine fibroid Surgical History History of dilation and curettage No significant past surgical history Social History household members: spouse housing: house current occupational status: employed 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 1. Little interest or pleasure in doing things: not at all 2. Feeling down, depressed, or hopeless: not at all Total score: 0 Post HPI 6 WK PP: Details: PEYTON SEN is a 27 year old who presents for her post visit. doing well. Feeding: Breast Menses resumed: No [place] since delivery: No Emotional Support: Yes Last Pap:: 2021 ROS Const Denies excessive sweating Card Reports system reviewed and no additional complaints, except as documented, Denies chest pain, Denies chest pain with activity, Denies edema, Denies leg edema and Denies palpitations Resp Reports system reviewed and no additional complaints, except as documented GI Reports system reviewed and no additional complaints, except as documented, Denies abdominal pain and Denies bloating Reports system reviewed and no additional complaints, except as documented, Denies difficulty voiding, Denies dysuria, Denies urinary frequency, Denies urinary incontinence, Denies urinary hesitancy, Denies urinary urgency, Denies vaginal discharge and Denies vaginal odor Musc Reports system reviewed and no additional complaints, except as documented Skin/Breast Reports system reviewed and no additional complaints, except as documented Neuro Yes system reviewed and no additional complaints, except as documented Psych Reports system reviewed and no additional complaints, except as documented Endo Reports system reviewed and no additional complaints, except as documented, Denies cold intolerance, Denies deepening of the voice, Denies excessive sweating, Denies heat intolerance, Denies pal pitations, Denies polydipsia and Denies polyuria Rhys/Lymph Reports system reviewed and no additional complaints, except as documented Aller/Immun Reports system reviewed and no additional complaints, except as documented Exam Const General: cooperative, healthy appearing and comfortable Neck Neck: no lymphadenopathy and supple Thyroid: thyroid normal Chest Breast inspection: normal inspection of the breasts and normal inspection of the axillae Resp Effort Inspection: normal respiratory effort, able to speak in complete sentences and symmetric chest movement GI Inspection: normal to inspection Bimanual Exam- Vagina Uterus: normal bimanual exam and uterine size normal Bimanual Exam- Adnexa, other: normal Pelvic Support: normal Psych Appearance: grossly normal and well kempt Coding Level of Care Code No Charge Diagnoses normal course Z39.2 Assessment and Plan Assessment and Plan (1) normal course: Status: Acute Plan: Cervical cancer screenin02/06/2022 Contraceptive plans: condom use Complications: n (more content not included)... Normal [facility] MR/BMS.CLINTONCon 09-17-2022 MR/BMS.CLINTONC [facility] [address] [place] [address] OFFICE VISIT Date of Service: 09/17/22 MR#: [id number] Acct: [id number] Name: PEYTON SEN Rep #: [id number] : 1995 Provider: PERI giraldo Age/Sex: 27/F Location: [facility] [place] Status: Signed Intake Vital Signs 08/22/22 02:04 09/17/22 15:31 09/17/22 15:35 Height 5 ft 5 in 5 ft 5 in Temp 99.2 F H Intake Visit Reasons: mastitis Chief Complaint: mastitis Allergies No Known Allergies Allergy (Verified 08/21/22 14:58) : Yes PFSH PFSH Medical History (Updated 08/24/22 @ 00:02 by Meghann Wilks) Abnormal Pap smear of cervix Anxiety Dysthymia Major depressive disorder, 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 Uterine fibroid Surgical History History of dilation and curettage No significant past surgical history Social History household members: spouse housing: house current occupational status: employed 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 History provided by the patient. ROS ROS Const Constitutional: Reports body ache (last night, improved today ), chills (lsat night, improved today ) and fever(s) (103 last night, none today ); Denies headache(s) or lethargy Details: taking tylenol and motrin for fever and body aches, started keflex last night Cardio Card: Denies chest pain Resp Resp: Denies dyspnea on exertion GI GI: Reports nausea; Denies vomiting : Denies nipple discharge Skin Skin/Breast: Reports breast pain (right breast pain, redness ); Denies breast skin changes or nipple discharge Details: q3 hours, 15 minutes to one side, sometimes baby will nurse 1-5 minutes to second side, patient with oversupply - pumping after every feed and getting 4-5 oz extra per feed, right breast pain noted 4 days ago, started to improve two days ago and then got worse last night, redness spreading on right breast, patient took one dose of cephalexin last night and 3 doses today, aware to take it q 6 hours, patient also experiencing nipple pain, worse to the left side but will last the entire feed, states on the right side it is usually just at the start of the feed, used lanolin cream today with some relief Exam Maternal Assessment Breast Assessment Bilateral Breasts: Full Nipple Assessment Bilateral Nipples: Everted Areolar Tissue Areolar Tissue: Pliable Diagrams - Click on the drop-down arrow Breast Diagram: 1. 3 x 4 cm area of redness and warmth 2. 3 x 6 cm area of redness and warmth Assessment Baby Feeding History Is your baby latching onto the breast: Yes Number of Breast Feedings in 24 hours: 8-12 Minutes per breast: First Breast: 10-15 Minutes per breast: Second Breast: 1-5 Supplements Supplement Type:: None Breast Pumping Frequency: if baby only latches to one side will pump other side Amount: 4-5 oz Reason for supplements or pumping:: oversupply Goals Breast Feeding Goals: Exclusive Exam Const General: comfortable and no acute distress Orientation: alert and oriented x3 Chest Breast inspection: abnormal inspection of the breast (redness noted to right breast as diagram above ) Breast palpation: abnormal palpation of the breast (warmth to red areas on right breast as noted above ) Other: bilateral nipples slight reddened, no cracking present Resp Effort Inspection: normal respiratory effort Skin General: no rashes or lesions noted Psych Appearance: grossly normal Mental Status: mental status grossly normal Affect: normal affect Assessment and Plan Assessment and Plan (1) Mastitis: Plan: Continue full course of cephalexin. Educated to avoid warmth and use ice after feeds. Can continue to pump or use haakaa as she was but after mastitis symptoms resolved recommended start to wean down pumping to slowly regulate milk supply. Will have patient call in and can assist with this process. Follow up for any new/worsening symptoms. (2) nipple pain: Plan: Combination nipple (more content not included)... Normal [facility] Discharge Instructionon 07-30 Discharge Instruction [facility] Medical Records Department [address] [place] [address] Instructions for Home/Discharge Instructions 08/23/22 1042 MR#: [id number] Acct: [id number] Name: PEYTON SEN Rep #: [id number] : 1995 27 From: Kamini Vazquez DO PCP: JORDAN Rao Status:ADM IN Discharge Instructions Diet Discharge Diet: No restrictions Activity Discharge Activity: Return to Normal Activity, May Not Drive (while taking narcotic pain medications.) and May Shower May resume sexual activity in: 4-6 weeks Dressing / Incision Call your doctor if your incision/area has: Continuous Slow Oozing, Sudden Increased Bleeding, Increased Pain/ Swelling, Increased Redness and Foul Smelling Discharge Follow Up Care Please Follow Up With: Kamini Vazquez DO When: Call [phone] to make an appointment with your doctor in 6 weeks. If you had elevated blood pressure or 4th degree laceration, you will need to be seen in 2 weeks. Test Results: Test results from this visit will be discussed in further detail at your follow-up appointment, if applicable. Discharge Plan Admission Admit Date/Time: 08/22/22 02:55 Primary Reason for Your Visit: vaginal delivery Attending Provider: Bernadette Montes De Oca Primary Care Provider: Sujatha Oconnor NP Discharge Orders/Prescriptions Prescriptions: New naproxen 500 mg tablet 500 mg PO BID PRN (Reason: pain) Qty: 30 0RF No Action PNV #[id number] 30 mg iron-10 mg iron-1 mg capsule 1 cap PO DAILY Referrals / Follow Up: Sujatha Oconnor NP, FORESTRY WORKER-C [Primary Care Provider] - Disposition Disposition (needs filled in before D/C Order can be placed): Home, Self Care 08/23/22 1043 Kamini Vazquez DO CC: FORESTRY WORKER-C Sujatha Oocnnor Signed Normal [facility] (ROM) Rupture Of Membraneson 08-22-2022 ROM Positive Abnormal Negative [facility] Comment on above: Result Comment: Amni otic fluid present indicates rupture of Membranes. RESULTS CALLED TO Efrain TALAMANTES RN (WP) 08/22/22 0256 Nigel Vital. REPORT READ BACK BY SAME . Performed By: #### M 100.2000, M100.3400, M100.3200 #### [facility] [address] [place], [address] CBC W/Diff, Automatedon 01-2 -2022 Absolute Lymph 2.40 X10 3/uL Normal 0.83-4.51 [facility] Comment on above: Performed By: #### M , M100.3400, M100.3200 #### [facility] [address] [place], [address] Absolute Neut 14.8 X10 3/uL High 2.0-7.7 [facility] Comment on above: Performed By: #### M , 00.340, M100.3200 #### [facility] [address] [place], [address] Basophils/100 WBC (Bld) 0.5 % Normal 0-1 [facility] Comment on above: Performed By: #### M , .340, M100.3200 #### [facility] [address] [place], [address] Eosinophils/100 WBC (Bld) 0.7 % Normal 0-5 [facility] Comment on above: Performed By: #### M , 00.3400, M100.3200 #### [facility] [address] [place], [address] Erythrocyte distribution width (RBC) [Ratio] 15.1 % High 11.6-14.6 [facility] Comment on above: Performed By: #### M , M100.3400, M100.3200 #### [facility] [address] [place], [address] Hematocrit (Bld) [Volume fraction] 30.3 % Low 37-47 [facility] Comment on above: Performed By: #### M , M100.3400, M100.3200 #### [facility] [address] [place], [address] Hemoglobin (Bld) [Mass/Vol] 9.4 g/dL Low 12.0-15.0 [facility] Comment on above: Performed By: #### M , , .3200 #### [facility] [address] [place], [address] IG% 2.400 High 0.0-0.9 [facility] Comment on above: Result Comment: IG% - Immature Granulocytes (promyelocytes, myelocytes and metamyelocytes) > 1% indicates that a LEFT SHIFT is Present. Performed By: #### M , , 0 #### [facility] [address] [place], [address] Lymphocytes/100 WBC (Bld) 12.6 % Low 19-41 [facility] Comment on above: Performed By: #### M , , 0 #### [facility] [address] [place], [address] MCH (RBC) [Entitic mass] 23.2 pg Low 27.0-32.0 [facility] Comment on above: Performed By: #### M , , .0 #### [facility] [address] [place], [address] MCHC (RBC) [Mass/Vol] 31.0 g/dL Low 32-36 [facility] Comment on above: Performed By: #### M , , M1.3200 #### [facility] [address] [place], [address] MCV (RBC) [Entitic vol] 74.6 fL Low 81-99 [facility] Comment on above: Performed By: #### M , , M100.3200 #### [facility] [address] [place], [address] Monocytes/100 WBC (Bld) 6.3 % Normal 0-10 [facility] Comment on above: Performed By: #### M , .340, M100.3200 #### [facility] [address] [place], [address] Neutrophils/100 WBC (Bld) 77.5 % High 47-70 [facility] Comment on above: Performed By: #### M , , .3200 #### [facility] [address] [place], [address] Nucleated RBC (Bld) [#/Vol] 0 10*3/uL Normal 0-5 [facility] Comment on above: Performed By: #### M , , .3200 #### [facility] [address] [place], [address] Platelet mean volume (Bld) [Entitic vol] 10.5 fL Normal 6.2-12.0 [facility] Comment on above: Performed By: #### M , , M1.3200 #### [facility] [address] [place], [address] Platelets (Bld) [#/Vol] 355 10*3/uL Normal 150-450 [facility] Comment on above: Performed By: #### M , 340, M100.3200 #### [facility] [address] [place], [address] RBC (Bld) [#/Vol] 4.06 10*6/uL Low 4.2-5.[address] [facility] Comment on above: Performed By: #### M , 340, M100.3200 #### [facility] [address] [place], [address] RDW SD 40.9 fl Normal 35.1-43.9 [facility] Comment on above: Performed By: #### M 100.2000, M100.3400, M100.3200 #### [facility] [address] [place], [address] WBC (Bld) [#/Vol] 19.1 10*3/uL High 4.4-11.[address] [facility] Comment on above: Performed By: #### M 100.1999, M100.3400, M100.3200 #### [facility] [address] [place], [address] H AND P Exam - OB/GYNon 07-30 H&P Exam - BAG SORTER [facility] Medical Records Department [address] [place] [address] H P Exam - BAG SORTER 08/22/22 0625 MR#: [id number] Acct: [id number] Name: PEYTON SEN Rep #: [id number] : 1995 27 From: Bernadette Montes De Oca CNM PCP: JORDAN Rao Status:ADM IN [facility] - General General Date of Admission: 08/22/22 HPI Narrative PEYTON SEN, is a 27 F who presents at 36+3 with steady consistent contractions and LOF. course complicated by abnormal chorion, UTI, persistent blakes's pouch cyst, uterine fibroid Maternal Data Information RONIT Calculator Estimated Delivery Date Method Current WG Current Estimate 09/16/22 LMP (Certain) 36w 3d PFSH PFSH Medical History (Updated 08/22/22 @ 02:31 by Maira Mendez) Abnormal Pap smear of cervix Anxiety Dysthymia Major depressive disorder, 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 Uterine fibroid Home Medications vitamin#30 30 mg iron-10 mg iron-folic acid 1 mg-omg3 capsule 1 cap PO DAILY 02/06/22 [History Last Taken 08/21/22 14:00] Allergy/AdvReac Type Severity Reaction Status Date / Time No Known Allergies Allergy Verified 08/21/22 14:58 Surgical History History of dilation and curettage No significant past surgical history Social History household members: spouse housing: house current occupational status: employed 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[place] pets and animals: Yes Smoking Status: Never smoker second hand exposure: No alcohol intake: current details: not while substance use type: does not use seatbelt use: always do you feel safe at home: Yes additional social history: - Abran History 2 Elective abortions Hx Para 0 Spontaneous abortions 1 Hx # Term Pregnancies Ectopic pregnancies Hx # Pregnancies Multiple births # of living children Visit Details Expected Delivery Route/Plan Labor Preferences- CB/BF classes: yes labor support person: Abran labor intervention preferences: [] pain management options preferred: epidural cut cord/dad catch: yes : yes PP control planned: discussed discussed possible routes of delivery and associated risks: [] special requests: [] Plans Covid status: discussed Flu vaccine: declines Tdap vaccine: [] Rhogam: NA LARC form signed: yes Problem list reviewed and updated with the most current plan of care details and appropriate orders placed. Relevant counseling for the gestational age provided. Continue routine care and follow up unless otherwise noted in visit notes/problem list details OB Flowsheet Initial Weight: Not Recorded Date -???-???-???-???-???-?? ?-???-???-???-???-???-? ??- EGA Weight BP Urine Prot -???-???-???-???-???-?? ?-???-???-???-???-???-? ??- Glucose FHR FuHt Pres Dilation -???-???-???-???-???-?? ?-???-???-???-???-???-? ??- Effaced St Visit Note 02/06/22 -???-???-???-???-???-?? ?-???-???-???-???-???-? ??- 8w 2d 153 lb 118/76 -???-???-???-???-???-?? ?-???-???-???-???-???-? ??- 180 160 -???-???-???-???-???-?? ?-???-???-???-???-???-? ??- SM- CRL 1.6c m cons with LMP SM- CRL 1.6cm cons with LMP, GS ab normality seen coming off edge into the cavity 5 mm in size no additional blood flow separate from pole 02/22/22 -???-???-???-???-???-?? ?-???-???-???-???-???-? ??- 10w 4d 152 lb 104/72 -???-???-???-???-???-?? ?-???-???-???-???-???-? ??- 160 -???-???-???-???-???-?? ?-???-???-???-???-???-? ??- SM- fu ultra sound normal appearing sac discussed genetic testing if desired. 03/20/22 -???-???-???-???-???-?? ?-???-???-???-???-???-? ??- 14w 2d 148 lb 2 oz 118/70 Negative -???-???-???-???-???-?? ?-???-???-???-???-???-? ??- Negative 149 -???-???-???-???-???-?? ?-???-???-???-???-???-? ??- JV- pt was i n ER for severe bleeding which stopped abruptly after arrival. This was last week and she explained the bleeding as running down her leg. She has no further bleeding. On spec exam there is a small posterior cervical ectropion present. No subchorionic hemorrhage noted. pt is having a hard time with N/V and wants to try a reglan pump as zofran is not working. She has lost a little weight since her last visit. 04/17/22 -???-???-???-???-???-?? ?-???-???-???-???-???-? ??- 18w 2d 151 lb 2 oz 110/78 Negative -???-???-???-???-???-?? ?-???-???-???-???-???-? ??- Negative 152 -???-???-???-???-???-?? ?-???-???-???-???-???-? ??- MH-Occa brow n discharge persists but no red bleeding. Feeling flutters. Nausea improved with reglan pump. Noting some sleep disturbance, anxiety with reglan. Will discuss with optum change to zofran (more content not included)... Normal [facility] Operative Reporton 3 Operative Report [facility] Medical Records Department [address] [place] [address] Operative Report 08/22/22 0731 MR#: [id number] Acct: [id number] Name: PEYTON SEN Rep #: [id number] : 1995 27 From: Bernadette Montes De Oca CNM PCP: Sujatha Oconnor FORESTRY WORKER-C Status:ADM IN Location: [id number] Assessment Plan (1) (spontaneous vaginal delivery): COMMENT: IAL @36+3. . boy: PETEY herrera (2) Persistent Arianna's pouch cyst: COMMENT: 07/24- 7mm cyst persistent stable, patient declined FTC referral plan FU after delivery. confirmed with jesusita rios for [place]. 1 MFM 06/20: stable but persists. (3) Uterine fibroid: COMMENT: repeat US @ 20 wks:05/07/22- still shows fibroid present near cervix. rpt again at 32 weeks PLAN: Plan s/p PPD # 0 1. routine post delivery care 2. breast feeding- support given 3. rh positive 4. rubella immune Maternal Data Information RONIT Calculator Estimated Delivery Date Method Current WG Current Estimate 09/16/22 LMP (Certain) 36w 3d Vaginal Delivery Maternal Presentation Maternal Presentation: Active Labor Operative Information Date of Procedure: 08/22/22 Pre-Operative Diagnosis: Post-Operative Diagnosis: Surgery / Procedure Performed: Spontaneous Vaginal Delivery Type of Anesthesia: Epidural Drain: Colon to straight drain Estimated Blood Loss: 400 Time of Delivery: 07:00 Findings Description of Procedure: Patient began pushing and delivered the head in the BRIJESH presentation. The head was delivered atraumatically and a tight nuchal cord ???2 was identified and somersaulted and then easily reduced over the 's head. The anterior and posterior shoulders delivered without complication followed by the rest of the and the infant was placed on the maternal abdomen. Delayed cord clamping was employed for approximately 60 seconds. Cord was clamped and cut and gentle traction was applied to the cord and the placenta delivered spontaneously immediately following it was noted to be intact with three-vessel cord. The perineum and vagina were inspected and noted to have 1st degree laceration, repaired with 3-0 rapid in usual fashion. bilateral periurethral tears, non- bleeding. EBL was 400cc. Patient and tolerated delivery well, entered recovery period bonding skin to skin. Presentation: Vertex Amniotic Membrane Rupture Type: Spontaneous Amniotic Fluid Description: Clear Placental Delivery Description: Spontaneous Placenta Disposition: [facility] Cord Vessel Description: 3 Vessels Cord Entanglement: Around neck x 2, tight Nuchal Cord Compression: Without compression A Gender: Male (1 minute): 8 (5 minute): 9 Delayed Cord Clamping: Yes Post Vaginal Delivery Medications Given After Delivery: IV Pitocin and IM Methergin Laceration: Midline and 1st degree Complication Complications: - (fundus deviated to left, methergine provided. colon draining clear yellow urine) Procedures Urinary/Genital 52xxx-59xxx: 20590 Vaginal Delivery global pkg (CN DELIVERY) 08/22/22 0735 Cosigner Signature (if applicable): CC: KAM Montes De Oca; FORESTRY WORKER-C Sujathajaved Crowleyers Signed Normal [facility] Type AND Screenon 08-22-2022 Ab SCREEN GEL Negative [facility] Comment on above: Order Comment: Labor Performed By: #### M 100.1999, M100.3400, M100.3200 #### [facility] [address] [place], [address] ABO and Rh group Nom (Bld) Blood group O Rh(D) positive [facility] Comment on above: Order Comment: Labor Performed By: #### M 100.1999, M1.3400, M100.3200 #### [facility] [address] [place], [address] Urinalysis, Routine (Dipstic k)on 08-22-2022 BILIRUBIN URINE Normal Negative [facility] Comment on above: Order Comment: CLEAN CATCH Result Comment: Canc elled via OM: MD Ordered Performed By: #### M 100.1999, M100.3400, M100.3200 #### [facility] [address] [place], [address] Clarity (U) Normal Clear [facility] Comment on above: Order Comment: CLEAN CATCH Result Comment: Canc elled via OM: MD Ordered Performed By: #### M 100.1999, M100.3400, M100.3200 #### [facility] [address] [place], [address] Color (U) Normal Yellow [facility] Comment on above: Order Comment: CLEAN CATCH Result Comment: Canc elled via OM: Ordered Performed By: #### M 100.1999, M100.3400, M100.3200 #### [facility] [address] [place], [address] GLUCOSE, UR Normal Normal [facility] Comment on above: Order Comment: CLEAN CATCH Result Comment: Canc elled via OM: MD Ordered Performed By: #### M 100.1999, M100.3400, M100.3200 #### [facility] [address] [place], [address] KETONE UR Normal Negative [facility] Comment on above: Order Comment: CLEAN CATCH Result Comment: Canc elled via OM: MD Ordered Performed By: #### M , M100.3400, M100.3200 #### [facility] [address] [place], [address] LEUK ESTERASE Normal Negative [facility] Comment on above: Order Comment: CLEAN CATCH Result Comment: Canc elled via OM: MD Ordered Performed By: #### M , M100.3400, M100.3200 #### [facility] [address] [place], [address] Nitrite Ql (U) Normal Negative [facility] Comment on above: Order Comment: CLEAN CATCH Result Comment: Canc elled via OM: MD Ordered Performed By: #### M , M100.3400, M100.3200 #### [facility] [address] [place], [address] OCCULT BLOOD-UR Normal Negative [facility] Comment on above: Order Comment: CLEAN CATCH Result Comment: Canc elled via OM: MD Ordered Performed By: #### M , M100.3400, M100.3200 #### [facility] [address] [place], [address] pH UR Normal 5.0 - 8.0 [facility] Comment on above: Order Comment: CLEAN CATCH Result Comment: Canc elled via OM: MD Ordered Performed By: #### M 100.1999, M100.3400, M100.3200 #### [facility] [address] [place], [address] PROT DIPSTX Normal Negative [facility] Comment on above: Order Comment: CLEAN CATCH Result Comment: Canc elled via OM: MD Ordered Performed By: #### M 100.1999, M100.3400, M100.3200 #### [facility] [address] [place], [address] SP.GR. DIPSTX Normal 1.002-1.030 [facility] Comment on above: Order Comment: CLEAN CATCH Result Comment: Canc elled via OM: MD Ordered Performed By: #### M 100.1999, M100.3400, M100.3200 #### [facility] [address] [place], [address] UR Preservative Normal [facility] Comment on above: Order Comment: CLEAN CATCH Result Comment: Canc elled via OM: MD Ordered Performed By: #### M 100.1999, M100.3400, M100.3200 #### [facility] [address] [place], [address] UROBILI Normal Normal [facility] Comment on above: Order Comment: CLEAN CATCH Result Comment: Canc elled via OM: MD Ordered Performed By: #### M 100.1999, M100.3400, M100.3200 #### [facility] [address] [place], [address] [employer] Office Visit Reporton 08-21-2022 [employer] Office Visit Report [facility] [place] [address] [place] [address] OFFICE VISIT Date of Service: 08/21/22 MR#: [id number] Acct: [id number] Name: FRANCYPEYTONDeidra WALTER Rep #: [id number] : 1995 Provider: Dr. Kamini Wolfe DO Age/Sex: 27/F [place] [facility]: Signed Intake Vital Signs 06/12/22 11:15 08/16/22 08:19 08/21/22 14:59 08/21/22 14:59 Height 5 ft 5 in 5 ft 5 in 5 ft 5 in 5 ft 5 in Weight: 172 lb 4 oz BMI 28.6 BP 124/84 H Intake Visit Reasons: 37 WK OB Roof [employer] Helper Required: No Is patient in pain?: No Allergies No Known Allergies Allergy (Verified 08/21/22 14:58) Medications vitamin#30 30 mg iron-10 mg iron-folic acid 1 mg-omg3 capsule 1 cap PO DAILY 02/06/22 [History Confirmed 08/21/22] Last Menstrual Period: 12/10/21 Zika: Zika virus screening: Negative : No PFSH PFSH Medical History Abnormal Pap smear of cervix Dysthymia Major depressive disorder, 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 Uterine fibroid Surgical History History of dilation and curettage No significant past surgical history Social History household members: spouse housing: house current occupational status: employed 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 OB Visit RONIT Calculator Estimated Delivery Date Method Current WG Current Estimate 09/16/22 LMP (Certain) 36w 2d Expected Delivery Route/Plan Labor Preferences- CB/BF classes: yes labor support person: Abran labor intervention preferences: [] pain management options preferred: epidural cut cord/dad catch: yes : yes PP control planned: discussed discussed possible routes of delivery and associated risks: [] special requests: [] Specific Issue/Plans Covid status: discussed Flu vaccine: declines Tdap vaccine: [] Rhogam: NA LARC form signed: yes Problem list reviewed and updated with the most current plan of care details and appropriate orders placed. Relevant counseling for the gestational age provided. Continue routine care and follow up unless otherwise noted in visit notes/problem list details Initial Weight: Not Recorded Date -???-???-???-???-???-?? ?-???-???-???-???-???-? ??- EGA Weight BP Urine Prot -???-???-???-???-???-?? ?-???-???-???-???-???-? ??- Glucose FHR FuHt Pres Dilation -???-???-???-???-???-?? ?-???-???-???-???-???-? ??- Effaced St Visit Note 02/06/22 -???-???-???-???-???-?? ?-???-???-???-???-???-? ??- 8w 2d 153 lb 118/76 -???-???-???-???-???-?? ?-???-???-???-???-???-? ??- 180 160 -???-???-???-???-???-?? ?-???-???-???-???-???-? ??- SM- CRL 1.6c m cons with LMP SM- CRL 1.6cm cons with LMP, GS ab normality seen coming off edge into the cavity 5 mm in size no additional blood flow separate from pole 02/22/22 -???-???-???-???-???-?? ?-???-???-???-???-???-? ??- 10w 4d 152 lb 104/72 -???-???-???-???-???-?? ?-???-???-???-???-???-? ??- 160 -???-???-???-???-???-?? ?-???-???-???-???-???-? ??- SM- fu ultra sound normal appearing sac discussed genetic testing if desired. 03/20/22 -???-???-???-???-???-?? ?-???-???-???-???-???-? ??- 14w 2d 148 lb 2 oz 118/70 Negative -???-???-???-???-???-?? ?-???-???-???-???-???-? ??- Negative 149 -???-???-???-???-???-?? ?-???-???-???-???-???-? ??- JV- pt was i n ER for severe bleeding which stopped abruptly after arrival. This was last week and she explained the bleeding as running down her leg. She has no further bleeding. On spec exam there is a small posterior cervical ectropion present. No subchorionic hemorrhage noted. pt is having a hard time with N/V and wants to try a reglan pump as zofran is not working. She has lost a little weight since her last visit. 04/17/22 -???-???-???-???-???-?? ?-???-???-???-???-???-? ??- 18w 2d 151 lb 2 oz 110/78 Negative -???-???-???-???-???-?? ?-???-???-???-???-???-? ??- Negative 152 -???-???-???-???-???-?? ?-???-???-???-???-???-? ??- MH-Occa brow n discharge persists but no red bleeding. Feeling flutt (more content not included)... Normal [facility] Genital Culture Comprehensiv sophia 08-19-2022 VAC Reason for Exam: vaginal discharge vaginal discharge Normal vaginal kenya isolated. No yeast, Gardnerella, Neisseria or beta-hemolytic Streptococcus isolated. Normal [facility] Comment on above: Performed By: #### M 100.1999, M100.3400, M100.3200 #### [facility] [address] [place], [address] Rule out Beta Strep (Grp. B) on 08-18-2022 GOGO Reason for Exam: vaginal discharge vaginal discharge Group B Beta Streptococcus is not isolated. Normal [facility] Comment on above: Performed By: #### M 100.1999, M100.3400, M100.3200 #### [facility] [address] [place], [address] Gram Stainon 08-16-2022 GS Reason for Exam: vaginal discharge vaginal discharge Gram Stain 1+ Epithelial cells No White Blood Cells 3+ Gram positive rods 1+ Gram positive cocci No Gram negative diplococci Score = 1 Interpretation: 0-3 Normal, 4-6 Intermediate, 7-10 Positive BV Normal [facility] Comment on above: Performed By: #### M 100.1999, M100.3400, M100.3200 #### [facility] [address] [place], [address] Supervisor [employer] Office Visit Reporton 08-16-2022 Supervisor [employer] Office Visit Report [facility] [place] [facility] [address] [place], [place] [address] OFFICE VISIT Date of Service: 08/16/22 MR#: [id number] Acct: [id number] Name: PEYTON SEN Rep #: [id number] : 1995 Provider: Dr. Kristel rosario MD Age/Sex: 27/F [place] [facility]: Signed Intake Vital Signs 08/09/22 19:16 08/16/22 08:19 08/16/22 08:19 Height 1.65 m 1.65 m 1.65 m Weight: 76.771 kg BMI 28.1 BP 118/79 Intake Visit Reasons: OB [employer] Helper Required: No Is patient in pain?: No Allergies No Known Allergies Allergy (Verified 08/16/22 08:18) Medications vitamin#30 30 mg iron-10 mg iron-folic acid 1 mg-omg3 capsule 1 cap PO DAILY 02/06/22 [History Confirmed 08/16/22] cephalexin 500 mg capsule 500 mg PO Q6 #28 caps 08/09/22 [Rx Confirmed 08/16/22] Last Menstrual Period: 12/10/21 Zika: Zika virus screening: Negative : No PFSH PFSH Medical History Abnormal Pap smear of cervix Dysthymia Major depressive disorder, 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 Uterine fibroid Surgical History History of dilation and curettage No significant past surgical history Social History household members: spouse housing: house current occupational status: employed 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 OB Visit RONIT Calculator Estimated Delivery Date Method Current WG Current Estimate 09/16/22 LMP (Certain) 35w 4d Expected Delivery Route/Plan Labor Preferences- CB/BF classes: yes labor support person: Abran labor intervention preferences: [] pain management options preferred: epidural cut cord/dad catch: yes : yes PP control planned: discussed discussed possible routes of delivery and associated risks: [] special requests: [] Specific Issue/Plans Covid status: discussed Flu vaccine: declines Tdap vaccine: [] Rhogam: NA LARC form signed: yes Problem list reviewed and updated with the most current plan of care details and appropriate orders placed. Relevant counseling for the gestational age provided. Continue routine care and follow up unless otherwise noted in visit notes/problem list details Initial Weight: Not Recorded Date -???-???-???-???-???-?? ?-???-???-???-???-???-? ??- EGA Weight BP Urine Prot -???-???-???-???-???-?? ?-???-???-???-???-???-? ??- Glucose FHR FuHt Pres Dilation -???-???-???-???-???-?? ?-???-???-???-???-???-? ??- Effaced St Visit Note 02/06/22 -???-???-???-???-???-?? ?-???-???-???-???-???-? ??- 8w 2d 69.4 kg 118/76 -???-???-???-???-???-?? ?-???-???-???-???-???-? ??- 180 160 -???-???-???-???-???-?? ?-???-???-???-???-???-? ??- SM- CRL 1.6c m cons with LMP SM- CRL 1.6cm cons with LMP, GS ab normality seen coming off edge into the cavity 5 mm in size no additional blood flow separate from pole 02/22/22 -???-???-???-???-???-?? ?-???-???-???-???-???-? ??- 10w 4d 68.946 kg 104/72 -???-???-???-???-???-?? ?-???-???-???-???-???-? ??- 160 -???-???-???-???-???-?? ?-???-???-???-???-???-? ??- SM- fu ultra sound normal appearing sac discussed genetic testing if desired. 03/20/22 -???-???-???-???-???-?? ?-???-???-???-???-???-? ??- 14w 2d 67.188 kg 118/70 Negative -???-???-???-???-???-?? ?-???-???-???-???-???-? ??- Negative 149 -???-???-???-???-???-?? ?-???-???-???-???-???-? ??- JV- pt was i n ER for severe bleeding which stopped abruptly after arrival. This was last week and she explained the bleeding as running down her leg. She has no further bleeding. On spec exam there is a small posterior cervical ectropion present. No subchorionic hemorrhage noted. pt is having a hard time with N/V and wants to try a reglan pump as zofran is not working. She has lost a little weight since her last visit. 04/17/22 -???-???-???-???-???-?? ?-???-???-???-???-???-? ??- 18w 2d 68.549 kg 110/78 Negative -???-???-???-???-???-?? ?-???-???-???-???-???-? ??- Negative 152 -???-???-???-???-???-?? ?-???-???-???-???-???-? ??- MH-Occa brow n discharge persists but no re (more content not included)... Normal [facility] Urine Cultureon 08-11-2022 URC Below infection rachel l. Mixed Gram Positive Organisms Linch Count 1000-10,000 MIXC Mixed contaminants. Submit a new specimen if indicated. Normal [facility] Comment on above: Performed By: #### M 100.2000, M100.3400, M100.3200 #### [facility] [address] 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 See problem list details for additional plan information. Laboratory Studies: Laboratory Tests 08/09/22 08/09/22 08/09/22 Range/Units 20:30 20:30 20:15 WBC 16.6 H (4.4-11.0) K/mm3 RBC 3.97 L (4.2-5.4) M/mm3 Hgb 9.5 L (12.0-15.0) g/dL Hct 29.9 L (37-47) % MCV 75.3 L (81-99) fL MCH 23.9 L (27.0-32.0) pg MCHC 31.8 L (32-36) g/dL RDW Std Deviation 40.1 (35.1-43.9) fl RDW Coeff of Tabitha 14.7 H (11.6-14.6) % Plt Count 320 (150-450) K/mm3 MPV 10.9 (6.2-12.0) fl Immature Gran % (Auto) 1.700 H (0.0-0.9) % Neut % (Auto) 74.5 H (47-70) % Lymph % (Auto) 15.8 L (19-41) % [place] % (Auto) 6.4 (0-10) % Eos % (Auto) 1.1 (0-5) % Baso % (Auto) 0.5 (0-1) % Absolute Neuts (auto) 12.4 H (2.0-7.7) X10 3/uL Absolute Lymphs (auto) 2.63 (0.83-4.51) X10 3/uL Nucleated RBC % 0 (0-5) % Urine Color Yellow (Yellow) Urine Clarity Clear (Clear) Urine pH 6.0 (5.0 - 8.0) Ur Specific [place] 1.010 (1.002-1.030) Urine Protein Negative (Negative) mg/dl Urine Glucose (UA) Normal (Normal) mg/dl Urine Ketones 50 H (Negative) mg/dl Urine Occult Blood Negative (Negative) /ul Urine Nitrite Negative (Negative) Urine Bilirubin Negative (Negative) mg/dL Urine Urobilinogen Normal (Normal) mg/dl Ur Leukocyte Esterase Negative (Negative) /ul Blood Type O POSITIVE Antibody Screen NEGATIVE Charges/Coding Procedures Urinary/Genital 52xxx-59xxx: [id number] non-stress test Interp 08/13/22 1301 Date Kristel Clement MD Cosigner Signature (if applicable): Date CC: JORDAN Oconnor; Dr. Kristel Clement MD Signed Normal [facility] CBC W/Diff, Automatedon 07-29 Absolute Lymph 2.63 X10 3/uL Normal 0.83-4.51 [facility] Comment on above: Performed By: #### M 100.1999, M100.3400, M100.3200 #### [facility] [address] [place], [address] Absolute Neut 12.4 X10 3/uL High 2.0-7.7 [facility] Comment on above: Performed By: #### M 100.1999, M100.3400, M100.3200 #### [facility] [address] [place], [address] Basophils/100 WBC (Bld) 0.5 % Normal 0-1 [facility] Comment on above: Performed By: #### M 100.1999, M100.3400, M100.3200 #### [facility] [address] [place], [address] Eosinophils/100 WBC (Bld) 1.1 % Normal 0-5 [facility] Comment on above: Performed By: #### M 100.1999, M100.3400, M100.3200 #### [facility] [address] [place], [address] Erythrocyte distribution width (RBC) [Ratio] 14.7 % High 11.6-14.6 [facility] Comment on above: Performed By: #### M 100.1999, M100.3400, M100.3200 #### [facility] [address] [place], [address] Hematocrit (Bld) [Volume fraction] 29.9 % Low 37-47 [facility] Comment on above: Performed By: #### M , , #### [facility] [address] [place], [address] Hemoglobin (Bld) [Mass/Vol] 9.5 g/dL Low 12.0-15.0 [facility] Comment on above: Performed By: #### M , , #### [facility] [address] [place], [address] IG% 1.700 High 0.0-0.9 [facility] Comment on above: Result Comment: IG% - Immature Granulocytes (promyelocytes, myelocytes and metamyelocytes) > 1% indicates that a LEFT SHIFT is Present. Performed By: #### M , , #### [facility] [address] [place], [address] Lymphocytes/100 WBC (Bld) 15.8 % Low 19-41 [facility] Comment on above: Performed By: #### M , , #### [facility] [address] [place], [address] MCH (RBC) [Entitic mass] 23.9 pg Low 27.0-32.0 [facility] Comment on above: Performed By: #### M , , 0 #### [facility] [address] [place], [address] MCHC (RBC) [Mass/Vol] 31.8 g/dL Low 32-36 [facility] Comment on above: Performed By: #### M , , 0 #### [facility] [address] [place], [address] MCV (RBC) [Entitic vol] 75.3 fL Low 81-99 [facility] Comment on above: Performed By: #### M , , M100.3200 #### [facility] [address] [place], [address] Monocytes/100 WBC (Bld) 6.4 % Normal 0-10 [facility] Comment on above: Performed By: #### M , , M1.3200 #### [facility] [address] [place], [address] Neutrophils/100 WBC (Bld) 74.5 % High 47-70 [facility] Comment on above: Performed By: #### M , , M1.3200 #### [facility] [address] [place], [address] Nucleated RBC (Bld) [#/Vol] 0 10*3/uL Normal 0-5 [facility] Comment on above: Performed By: #### M , , M1.3200 #### [facility] [address] [place], [address] Platelet mean volume (Bld) [Entitic vol] 10.9 fL Normal 6.2-12.0 [facility] Comment on above: Performed By: #### M , , M100.3200 #### [facility] [address] [place], [address] Platelets (Bld) [#/Vol] 320 10*3/uL Normal 150-450 [facility] Comment on above: Performed By: #### M , 340, M100.3200 #### [facility] [address] [place], [address] RBC (Bld) [#/Vol] 3.97 10*6/uL Low 4.2-5.[address] [facility] Comment on above: Performed By: #### M , M1.340, M100.3200 #### [facility] [address] [place], [address] RDW SD 40.1 fl Normal 35.1-43.9 [facility] Comment on above: Performed By: #### M , .340, M100.3200 #### [facility] [address] [place], [address] WBC (Bld) [#/Vol] 16.6 10*3/uL High 4.4-11.[address] [facility] Comment on above: Performed By: #### M , , M100.3200 #### [facility] [address] [place], [address] Type AND Screenon 08-09-2022 Ab SCREEN GEL Negative Normal [facility] Comment on above: Order Comment: R Performed By: #### M , , M100.3200 #### [facility] [address] [place], [address] ABO and Rh group Nom (Bld) Blood group O Rh(D) positive Normal [facility] Comment on above: Order Comment: R Performed By: #### M , 340, M100.3200 #### [facility] [address] [place], [address] Urinalysis, Routine (Dipstic k)on 08-09-2022 BILIRUBIN URINE Negative Normal Negative [facility] Comment on above: Order Comment: COLLE CTOR TO SPECIFY Performed By: #### M , M1.340, M100.3200 #### [facility] [address] [place], [address] Clarity (U) Clear Normal Clear [facility] Comment on above: Order Comment: CHRISTIE CTOR TO SPECIFY Performed By: #### M 100.1999, M100.3400, M100.3200 #### [facility] [address] [place], [address] Color (U) Yellow Normal Yellow [facility] Comment on above: Order Comment: COLLE CTOR TO SPECIFY Performed By: #### M 100.1999, .3400, M100.3200 #### [facility] [address] [place], [address] GLUCOSE, UR Normal Normal Normal [facility] Comment on above: Order Comment: CHRISTIE CTOR TO SPECIFY Performed By: #### M , .340, M100.3200 #### [facility] [address] [place], [address] KETONE UR 50 mg/dl Abnormal Negative [facility] Comment on above: Order Comment: CHRISTIE CTOR TO SPECIFY Performed By: #### M , .340, M100.3200 #### [facility] [address] [place], [address] LEUK ESTERASE Negative Normal Negative [facility] Comment on above: Order Comment: CHRISTIE CTOR TO SPECIFY Performed By: #### M , .340, M100.3200 #### [facility] [address] [place], [address] Nitrite Ql (U) Negative Normal Negative [facility] Comment on above: Order Comment: CHRISTIE CTOR TO SPECIFY Performed By: #### M 100.1999, .3400, M100.3200 #### [facility] [address] [place], [address] OCCULT BLOOD-UR Negative Normal Negative [facility] Comment on above: Order Comment: CHRISTIE CTOR TO SPECIFY Performed By: #### M 100.1999, M100.3400, M100.3200 #### [facility] [address] [place], [address] pH UR 6.0 Normal 5.0 - 8.0 [facility] Comment on above: Order Comment: COLLE CTOR TO SPECIFY Performed By: #### M 100.1999, M100.3400, M100.3200 #### [facility] [address] [place], [address] PROT DIPSTX Negative Normal Negative [facility] Comment on above: Order Comment: COLLE CTOR TO SPECIFY Performed By: #### M 100.1999, M100.3400, M100.3200 #### [facility] [address] [place], [address] SP.GR. DIPSTX 1.010 Normal 1.002-1.030 [facility] Comment on above: Order Comment: COLLE CTOR TO SPECIFY Performed By: #### M 100.1999, M100.3400, M100.3200 #### [facility] [address] [place], [address] UROBILI Normal Normal Normal [facility] Comment on above: Order Comment: COLLE CTOR TO SPECIFY Performed By: #### M 100.1999, M100.3400, M100.3200 #### [facility] [address] [place], [address] [employer] Office Visit Reporton 08-07-2022 Super[employer] Office Visit Report [facility] [place] [facility] [address] [place] [address] OFFICE VISIT Date of Service: 08/07/22 MR#: [id number] Acct: [id number] Name: PEYTON SEN Rep #: [id number] : 1995 Provider: Dr. Kamini Wolfe DO Age/Sex: 27/F [place] [facility] [place]: Signed Intake Vital Signs 06/12/22 11:15 08/07/22 10:09 08/07/22 10:09 Height 5 ft 5 in 5 ft 5 in 5 ft 5 in Weight: 169 lb BMI 28.1 BP 113/76 Intake Visit Reasons: 34 WK OB Roof [employer] Helper Required: No Is patient in pain?: No Allergies No Known Allergies Allergy (Verified 08/07/22 10:09) Medications vitamin#30 30 mg iron-10 mg iron-folic acid 1 mg-omg3 capsule cap PO 02/06/22 [History Confirmed 08/07/22] sertraline 25 mg tablet (Zoloft) 25 mg PO DAILY #30 tabs 05/02/22 [Rx Confirmed 08/07/22] Last Menstrual Period: 12/10/21 Zika: Zika virus screening: Negative : No PFSH PFSH Medical History Abnormal Pap smear of cervix Dysthymia Major depressive disorder, 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 Uterine fibroid Surgical History History of dilation and curettage No significant past surgical history Social History household members: spouse housing: house 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 OB Visit RONIT Calculator Estimated Delivery Date Method Current WG Current Estimate 09/16/22 LMP (Certain) 34w 2d Expected Delivery Route/Plan Labor Preferences- CB/BF classes: yes labor support person: Abran labor intervention preferences: [] pain management options preferred: epidural cut cord/dad catch: yes : yes PP control planned: discussed discussed possible routes of delivery and associated risks: [] special requests: [] Specific Issue/Plans Covid status: discussed Flu vaccine: declines Tdap vaccine: [] Rhogam: NA LARC form signed: yes Problem list reviewed and updated with the most current plan of care details and appropriate orders placed. Relevant counseling for the gestational age provided. Continue routine care and follow up unless otherwise noted in visit notes/problem list details Initial Weight: Not Recorded Date -???-???-???-???-???-?? ?-???-???-???-???-???-? ??- EGA Weight BP Urine Prot -???-???-???-???-???-?? ?-???-???-???-???-???-? ??- Glucose FHR FuHt Pres Dilation -???-???-???-???-???-?? ?-???-???-???-???-???-? ??- Effaced St Visit Note 02/06/22 -???-???-???-???-???-?? ?-???-???-???-???-???-? ??- 8w 2d 153 lb 118/76 -???-???-???-???-???-?? ?-???-???-???-???-???-? ??- 180 160 -???-???-???-???-???-?? ?-???-???-???-???-???-? ??- SM- CRL 1.6c m cons with LMP SM- CRL 1.6cm cons with LMP, GS ab normality seen coming off edge into the cavity 5 mm in size no additional blood flow separate from pole 02/22/22 -???-???-???-???-???-?? ?-???-???-???-???-???-? ??- 10w 4d 152 lb 104/72 -???-???-???-???-???-?? ?-???-???-???-???-???-? ??- 160 -???-???-???-???-???-?? ?-???-???-???-???-???-? ??- SM- fu ultra sound normal appearing sac discussed genetic testing if desired. 03/20/22 -???-???-???-???-???-?? ?-???-???-???-???-???-? ??- 14w 2d 148 lb 2 oz 118/70 Negative -???-???-???-???-???-?? ?-???-???-???-???-???-? ??- Negative 149 -???-???-???-???-???-?? ?-???-???-???-???-???-? ??- JV- pt was i n ER for severe bleeding which stopped abruptly after arrival. This was last week and she explained the bleeding as running down her leg. She has no further bleeding. On spec exam there is a small posterior cervical ectropion present. No subchorionic hemorrhage noted. pt is having a hard time with N/V and wants to try a reglan pump as zofran is not working. She has lost a little weight since her last visit. 04/17/22 -???-???-???-???-???-?? ?-???-???-???-???-???-? ??- 18w 2d 151 lb 2 oz 110/78 Negative -???-???-???-???-???-?? ?-???-???-???-???-???-? ??- Negative 152 -???-???-???-???-???-?? ?-???-???-???-???-???-? ??- MH-Occa brow n discharge (more content not included)... Normal [facility] CBC W/Diff, Automatedon 12-2 Absolute Lymph 1.79 X10 3/uL Normal 0.83-4.51 [facility] Comment on above: Performed By: #### M 100, M100.3400, M100.3200 #### [facility] [address] [place], [address] Absolute Neut 11.3 X10 3/uL High 2.0-7.7 [facility] Comment on above: Performed By: #### M , M100.340, M100.3200 #### [facility] [address] [place], [address] Basophils/100 WBC (Bld) 0.6 % Normal 0-1 [facility] Comment on above: Performed By: #### M 100, M100.3400, M100.3200 #### [facility] [address] [place], [address] Eosinophils/100 WBC (Bld) 1.0 % Normal 0-5 [facility] Comment on above: Performed By: #### M , M100.3400, M100.3200 #### [facility] [address] [place], [address] Erythrocyte distribution width (RBC) [Ratio] 14.6 % Normal 11.6-14.6 [facility] Comment on above: Performed By: #### M 100, M100.3400, M100.3200 #### [facility] [address] [place], [address] Hematocrit (Bld) [Volume fraction] 35.2 % Low 37-47 [facility] Comment on above: Performed By: #### M , , #### [facility] [address] [place], [address] Hemoglobin (Bld) [Mass/Vol] 10.9 g/dL Low 12.0-15.0 [facility] Comment on above: Performed By: #### M , , #### [facility] [address] [place], [address] IG% 2.300 High 0.0-0.9 [facility] Comment on above: Result Comment: IG% - Immature Granulocytes (promyelocytes, myelocytes and metamyelocytes) > 1% indicates that a LEFT SHIFT is Present. Performed By: #### M , , #### [facility] [address] [place], [address] Lymphocytes/100 WBC (Bld) 12.3 % Low 19-41 [facility] Comment on above: Performed By: #### M , , 0 #### [facility] [address] [place], [address] MCH (RBC) [Entitic mass] 24.3 pg Low 27.0-32.0 [facility] Comment on above: Performed By: #### M , , M1.3200 #### [facility] [address] [place], [address] MCHC (RBC) [Mass/Vol] 31.0 g/dL Low 32-36 [facility] Comment on above: Performed By: #### M , , M1.3200 #### [facility] [address] [place], [address] MCV (RBC) [Entitic vol] 78.6 fL Low 81-99 [facility] Comment on above: Performed By: #### M , , .3200 #### [facility] [address] [place], [address] Monocytes/100 WBC (Bld) 5.9 % Normal 0-10 [facility] Comment on above: Performed By: #### M , , M1.3200 #### [facility] [address] [place], [address] Neutrophils/100 WBC (Bld) 77.9 % High 47-70 [facility] Comment on above: Performed By: #### M , , M1.3200 #### [facility] [address] [place], [address] Nucleated RBC (Bld) [#/Vol] 0 10*3/uL Normal 0-5 [facility] Comment on above: Performed By: #### M , , .3200 #### [facility] [address] [place], [address] Platelet mean volume (Bld) [Entitic vol] 10.6 fL Normal 6.2-12.0 [facility] Comment on above: Performed By: #### M , , M1.3200 #### [facility] [address] [place], [address] Platelets (Bld) [#/Vol] 346 10*3/uL Normal 150-450 [facility] Comment on above: Performed By: #### M , 340, M100.3200 #### [facility] [address] [place], [address] RBC (Bld) [#/Vol] 4.48 10*6/uL Normal 4.2-5.[address] [facility] Comment on above: Performed By: #### M 100.1999, M100.3400, M100.3200 #### [facility] [address] [place], [address] RDW SD 41.8 fl Normal 35.1-43.9 [facility] Comment on above: Performed By: #### M 100.1999, M100.3400, M100.3200 #### [facility] [address] [place], [address] WBC (Bld) [#/Vol] 14.5 10*3/uL High 4.4-11.[address] [facility] Comment on above: Performed By: #### M 100.1999, M100.3400, M100.3200 #### [facility] [address] [place], [address] [employer] Office Visit Reporton 07-24-2022 Supervisor [employer] Office Visit Report [facility] 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 Helper Required: No Is patient in pain?: No Allergies No Known Allergies Allergy (Verified 07/24/22 09:45) Medications vitamin#30 30 mg iron-10 mg iron-folic acid 1 mg-omg3 capsule cap PO 02/06/22 [History Confirmed 07/24/22] sertraline 25 mg tablet (Zoloft) 25 mg PO DAILY #30 tabs 05/02/22 [Rx Confirmed 07/24/22] Last Menstrual Period: 12/10/21 Zika: Zika virus screening: Negative : No PFSH PFSH Medical History Abnormal Pap smear of cervix Dysthymia Major depressive disorder, 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 Uterine fibroid Surgical History History of dilation and curettage No significant past surgical history Social History household members: spouse housing: house current occupational status: employed 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 OB Visit RONIT Calculator Estimated Delivery Date Method Current WG Current Estimate 09/16/22 LMP (Certain) 32w 2d Expected Delivery Route/Plan Labor Preferences- CB/BF classes: yes labor support person: Abran labor intervention preferences: [] pain management options preferred: epidural cut cord/dad catch: yes : yes PP control planned: discussed discussed possible routes of delivery and associated risks: [] special requests: [] Specific Issue/Plans Covid status: discussed Flu vaccine: declines Tdap vaccine: [] Rhogam: NA LARC form signed: yes Problem list reviewed and updated with the most current plan of care details and appropriate orders placed. Relevant counseling for the gestational age provided. Continue routine care and follow up unless otherwise noted in visit notes/problem list details Initial Weight: Not Recorded Date -???-???-???-???-???-?? ?-???-???-???-???-???-? ??- EGA Weight BP Urine Prot -???-???-???-???-???-?? ?-???-???-???-???-???-? ??- Glucose FHR FuHt Pres Dilation -???-???-???-???-???-?? ?-???-???-???-???-???-? ??- Effaced St Visit Note 02/06/22 -???-???-???-???-???-?? ?-???-???-???-???-???-? ??- 8w 2d 153 lb 118/76 -???-???-???-???-???-?? ?-???-???-???-???-???-? ??- 180 160 -???-???-???-???-???-?? ?-???-???-???-???-???-? ??- SM- CRL 1.6c m cons with LMP SM- CRL 1.6cm cons with LMP, GS ab normality seen coming off edge into the cavity 5 mm in size no additional blood flow separate from pole 02/22/22 -???-???-???-???-???-?? ?-???-???-???-???-???-? ??- 10w 4d 152 lb 104/72 -???-???-???-???-???-?? ?-???-???-???-???-???-? ??- 160 -???-???-???-???-???-?? ?-???-???-???-???-???-? ??- SM- fu ultra sound normal appearing sac discussed genetic testing if desired. 03/20/22 -???-???-???-???-???-?? ?-???-???-???-???-???-? ??- 14w 2d 148 lb 2 oz 118/70 Negative -???-???-???-???-???-?? ?-???-???-???-???-???-? ??- Negative 149 -???-???-???-???-???-?? ?-???-???-???-???-???-? ??- JV- pt was i n ER for severe bleeding which stopped abruptly after arrival. This was last week and she explained the bleeding as running down her leg. She has no further bleeding. On spec exam there is a small posterior cervical ectropion present. No subchorionic hemorrhage noted. pt is having a hard time with N/V and wants to try a reglan pump as [employer] is not working. She has lost a little weight since her last visit. 04/17/22 -???-???-???-???-???-?? ?-???-???-???-???-???-? ??- 18w 2d 151 lb 2 oz 110/78 Negative -???-???-???-???-???-?? ?-???-???-???-???-???-? ??- Negative 152 -???-???-???-???-???-?? ?-???-???-???-???-???-? ??- -Yousuf faulkner (more content not included)... Normal [facility] Progress Noteon 07-19-2022 Drier Operator Helper Authentication Interface Message Text Pt presented for follow up ultrasound to evaluate suspected arianna pouch. Indicated she was to have "cervix checked for cyst on cervix as would determine if needed c/s" I called Dr Aranda's office and spoke to Mercedes, who reviewed her last OB appt that indicated pt was to have follow up on fibroid. FTC to follow up on need for referral placed with last ultrasound. Normal [facility] Supervisor [employer] Office Visit Reporton 07-10-2022 Supervisor [employer] Office Visit Report [facility] [address] [place] [address] OFFICE VISIT Date of Service: 07/10/22 MR#: [id number] Acct: [id number] Name: PEYTON SEN Rep #: [id number] : 1995 Provider: Dr. 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 Required: No Is patient in pain?: No Allergies No Known Allergies Allergy (Verified 07/10/22 11:22) Medications vitamin#30 30 mg iron-10 mg iron-folic acid 1 mg-omg3 capsule cap PO 02/06/22 [History Confirmed 07/10/22] sertraline 25 mg tablet (Zoloft) 25 mg PO DAILY #30 tabs 05/02/22 [Rx Confirmed 07/10/22] Last Menstrual Period: 12/10/21 Zika: Zika virus screening: Negative : No PFSH PFSH Medical History Abnormal Pap smear of cervix Dysthymia Major depressive disorder, 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 Uterine fibroid Surgical History History of dilation and curettage No significant past surgical history Social History household members: spouse housing: house current occupational status: employed 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 OB Visit RONIT Calculator Estimated Delivery Date Method Current WG Current Estimate 09/16/22 LMP (Certain) 30w 2d Expected Delivery Route/Plan Labor Preferences- CB/BF classes: yes labor support person: Abran labor intervention preferences: [] pain management options preferred: epidural cut cord/dad catch: yes : yes PP control planned: discussed discussed possible routes of delivery and associated risks: [] special requests: [] Specific Issue/Plans Covid status: discussed Flu vaccine: declines Tdap vaccine: [] Rhogam: NA LARC form signed: yes Problem list reviewed and updated with the most current plan of care details and appropriate orders placed. Relevant counseling for the gestational age provided. Continue routine care and follow up unless otherwise noted in visit notes/problem list details Initial Weight: Not Recorded Date -???-???-???-???-???-?? ?-???-???-???-???-???-? ??- EGA Weight BP Urine Prot -???-???-???-???-???-?? ?-???-???-???-???-???-? ??- Glucose FHR FuHt Pres Dilation -???-???-???-???-???-?? ?-???-???-???-???-???-? ??- Effaced St Visit Note 02/06/22 -???-???-???-???-???-?? ?-???-???-???-???-???-? ??- 8w 2d 153 lb 118/76 -???-???-???-???-???-?? ?-???-???-???-???-???-? ??- 180 160 -???-???-???-???-???-?? ?-???-???-???-???-???-? ??- SM- CRL 1.6c m cons with LMP SM- CRL 1.6cm cons with LMP, GS ab normality seen coming off edge into the cavity 5 mm in size no additional blood flow separate from pole 02/22/22 -???-???-???-???-???-?? ?-???-???-???-???-???-? ??- 10w 4d 152 lb 104/72 -???-???-???-???-???-?? ?-???-???-???-???-???-? ??- 160 -???-???-???-???-???-?? ?-???-???-???-???-???-? ??- SM- fu ultra sound normal appearing sac discussed genetic testing if desired. 03/20/22 -???-???-???-???-???-?? ?-???-???-???-???-???-? ??- 14w 2d 148 lb 2 oz 118/70 Negative -???-???-???-???-???-?? ?-???-???-???-???-???-? ??- Negative 149 -???-???-???-???-???-?? ?-???-???-???-???-???-? ??- JV- pt was i n ER for severe bleeding which stopped abruptly after arrival. This was last week and she explained the bleeding as running down her leg. She has no further bleeding. On spec exam there is a small posterior cervical ectropion present. No subchorionic hemorrhage noted. pt is having a hard time with N/V and wants to try a reglan pump as yuriy is not working. She has lost a little weight since her last visit. 04/17/22 -???-???-???-???-???-?? ?-???-???-???-???-???-? ??- 18w 2d 151 lb 2 oz 110/78 Negative -???-???-???-???-???-?? ?-???-???-???-???-???-? ??- Negative 152 -???-???-???-???-???-?? ?-???-???-???-???-???-? ??- MH-Occa brow n discharge persists but no red (more content not included)... Normal [facility] Supervisor [employer] Office Visit Reporton 06-26-2022 Supervisor [employer] Vehicle [employer] Office Visit Report [facility] 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: No Is patient in pain?: No Allergies No Known Allergies Allergy (Verified 06/26/22 09:22) Medications vitamin#30 30 mg iron-10 mg iron-folic acid 1 mg-omg3 capsule cap PO 02/06/22 [History Confirmed 06/26/22] sertraline 25 mg tablet (Zoloft) 25 mg PO DAILY #30 tabs 05/02/22 [Rx Confirmed 06/26/22] Last Menstrual Period: 12/10/21 Zika: Zika virus screening: Negative : No PFSH PFSH Medical History (Updated 06/26/22 @ 09:42 by Cheri Melvin FORESTRY WORKER, FORESTRY WORKER-C) Abnormal Pap smear of cervix Dysthymia Major depressive disorder, 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 Uterine fibroid Surgical History History of dilation and curettage No significant past surgical history Social History household members: spouse housing: house current occupational status: employed 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 OB Visit RONIT Calculator Estimated Delivery Date Method Current WG Current Estimate 09/16/22 LMP (Certain) 28w 2d Expected Delivery Route/Plan Labor Preferences- CB/BF classes: yes labor support person: Abran labor intervention preferences: [] pain management options preferred: epidural cut cord/dad catch: yes : yes PP control planned: discussed discussed possible routes of delivery and associated risks: [] special requests: [] Specific Issue/Plans Covid status: discussed Flu vaccine: declines Tdap vaccine: [] Rhogam: NA LARC form signed: yes Problem list reviewed and updated with the most current plan of care details and appropriate orders placed. Relevant counseling for the gestational age provided. Continue routine care and follow up unless otherwise noted in visit notes/problem list details Initial Weight: Not Recorded Date -???-???-???-???-???-?? ?-???-???-???-???-???-? ??- EGA Weight BP Urine Prot -???-???-???-???-???-?? ?-???-???-???-???-???-? ??- Glucose FHR FuHt Pres Dilation -???-???-???-???-???-?? ?-???-???-???-???-???-? ??- Effaced St Visit Note 02/06/22 -???-???-???-???-???-?? ?-???-???-???-???-???-? ??- 8w 2d 153 lb 118/76 -???-???-???-???-???-?? ?-???-???-???-???-???-? ??- 180 160 -???-???-???-???-???-?? ?-???-???-???-???-???-? ??- SM- CRL 1.6c m cons with LMP SM- CRL 1.6cm cons with LMP, GS ab normality seen coming off edge into the cavity 5 mm in size no additional blood flow separate from pole 02/22/22 -???-???-???-???-???-?? ?-???-???-???-???-???-? ??- 10w 4d 152 lb 104/72 -???-???-???-???-???-?? ?-???-???-???-???-???-? ??- 160 -???-???-???-???-???-?? ?-???-???-???-???-???-? ??- SM- fu ultra sound normal appearing sac discussed genetic testing if desired. 03/20/22 -???-???-???-???-???-?? ?-???-???-???-???-???-? ??- 14w 2d 148 lb 2 oz 118/70 Negative -???-???-???-???-???-?? ?-???-???-???-???-???-? ??- Negative 149 -???-???-???-???-???-?? ?-???-???-???-???-???-? ??- JV- pt was i n ER for severe bleeding which stopped abruptly after arrival. This was last week and she explained the bleeding as running down her leg. She has no further bleeding. On spec exam there is a small posterior cervical ectropion present. No subchorionic hemorrhage noted. pt is having a hard time with N/V and wants to try a reglan pump as zofran is not working. She has lost a little weight since her last visit. 04/17/22 -???-???-???-???-???-?? ?-???-???-???-???-???-? ??- 18w 2d 151 lb 2 oz 110/78 Negative -???-???-???-???-???-?? ?-???-???-???-???-???-? ??- Negative 152 -???-???-???-???-???-?? ?-???-???-???-???-???-? ??- (more content not included)... Normal [facility] CBC W/Diff, Automatedon 11-1 Absolute Lymph 2.11 X10 3/uL Normal 0.83-4.51 [facility] Comment on above: Performed By: #### M , M100.3400, M100.3200 #### [facility] [address] [place], [address] Absolute Neut 10.4 X10 3/uL High 2.0-7.7 [facility] Comment on above: Performed By: #### M , .340, M100.3200 #### [facility] [address] [place], [address] Basophils/100 WBC (Bld) 0.5 % Normal 0-1 [facility] Comment on above: Performed By: #### M , 340, M100.3200 #### [facility] [address] [place], [address] Eosinophils/100 WBC (Bld) 1.8 % Normal 0-5 [facility] Comment on above: Performed By: #### M , 340, M100.3200 #### [facility] [address] [place], [address] Erythrocyte distribution width (RBC) [Ratio] 13.9 % Normal 11.6-14.6 [facility] Comment on above: Performed By: #### M , .340, M100.3200 #### [facility] [address] [place], [address] Hematocrit (Bld) [Volume fraction] 33.1 % Low 37-47 [facility] Comment on above: Performed By: #### M , M1.340, M100.3200 #### [facility] [address] [place], [address] Hemoglobin (Bld) [Mass/Vol] 10.5 g/dL Low 12.0-15.0 [facility] Comment on above: Performed By: #### M , , M100.3200 #### [facility] [address] [place], [address] IG% 1.900 High 0.0-0.9 [facility] Comment on above: Result Comment: IG% - Immature Granulocytes (promyelocytes, myelocytes and metamyelocytes) > 1% indicates that a LEFT SHIFT is Present. Performed By: #### M , , #### [facility] [address] [place], [address] Lymphocytes/100 WBC (Bld) 15.3 % Low 19-41 [facility] Comment on above: Performed By: #### M , , #### [facility] [address] [place], [address] MCH (RBC) [Entitic mass] 25.1 pg Low 27.0-32.0 [facility] Comment on above: Performed By: #### M , , #### [facility] [address] [place], [place], [address] MCHC (RBC) [Mass/Vol] 31.7 g/dL Low 32-36 [facility] Comment on above: Performed By: #### M , , #### [facility] [address] [place], [address] MCV (RBC) [Entitic vol] 79.0 fL Low 81-99 [facility] Comment on above: Performed By: #### M , , #### [facility] [address] [place], [address] Monocytes/100 WBC (Bld) 5.5 % Normal 0-10 [facility] Comment on above: Performed By: #### M , , M100.3200 #### [facility] [address] [place], [address] Neutrophils/100 WBC (Bld) 75.0 % High 47-70 [facility] Comment on above: Performed By: #### M , 340, M100.3200 #### [facility] [address] [place], [address] Nucleated RBC (Bld) [#/Vol] 0 10*3/uL Normal 0-5 [facility] Comment on above: Performed By: #### M , , M1.3200 #### [facility] [address] [place], [address] Platelet mean volume (Bld) [Entitic vol] 10.2 fL Normal 6.2-12.0 [facility] Comment on above: Performed By: #### M , , M1.3200 #### [facility] [address] [place], [address] Platelets (Bld) [#/Vol] 354 10*3/uL Normal 150-450 [facility] Comment on above: Performed By: #### M , , M100.3200 #### [facility] [address] [place], [address] RBC (Bld) [#/Vol] 4.19 10*6/uL Low 4.2-5.[address] [facility] Comment on above: Performed By: #### M , 340, M100.3200 #### [facility] [address] [place], [address] RDW SD 39.2 fl Normal 35.1-43.9 [facility] Comment on above: Performed By: #### M , M100.3400, M100.3200 #### [facility] [address] [place], [place], [address] WBC (Bld) [#/Vol] 13.8 10*3/uL High 4.4-11.[address] [facility] Comment on above: Performed By: #### M 100.1999, M100.3400, M100.3200 #### [facility] [address] [place], [address] Glucose Challenge Gest 1H 50 doug 06-12-2022 GLU GEST 50g 1H 101 mg/dL Normal 70-140 [facility] Comment on above: Performed By: #### M 100.1999, M100.3400, M100.3200 #### [facility] [address] [place], [address] [employer] Office Visit Reporton 06-12-2022 [employer]visor [employer] Office Visit Report [facility] 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 Is patient in pain?: No Allergies No Known Allergies Allergy (Verified 06/12/22 10:54) Medications vitamin#30 30 mg iron-10 mg iron-folic acid 1 mg-omg3 capsule cap PO 02/06/22 [History Confirmed 06/12/22] sertraline 25 mg tablet (Zoloft) 25 mg PO DAILY #30 tabs 05/02/22 [Rx Confirmed 06/12/22] Last Menstrual Period: 12/10/21 Zika: Zika virus screening: Negative : No PFSH PFSH Medical History (Updated 06/12/22 @ 11:03 by Cheri Melvin NP, FORESTRY WORKER-C) Abnormal Pap smear of cervix Dysthymia Major depressive disorder, 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 Uterine fibroid Surgical History History of dilation and curettage No significant past surgical history Social History household members: spouse housing: house current occupational status: employed 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 OB Visit RONIT Calculator Estimated Delivery Date Method Current WG Current Estimate 09/16/22 LMP (Certain) 26w 2d Expected Delivery Route/Plan Labor Preferences- CB/BF classes: yes labor support person: Abran labor intervention preferences: [] pain management options preferred: epidural cut cord/dad catch: yes : yes PP control planned: discussed discussed possible routes of delivery and associated risks: [] special requests: [] Specific Issue/Plans Covid status: discussed Flu vaccine: declines Tdap vaccine: [] Rhogam: NA LARC form signed: yes Problem list reviewed and updated with the most current plan of care details and appropriate orders placed. Relevant counseling for the gestational age provided. Continue routine care and follow up unless otherwise noted in visit notes/problem list details Initial Weight: Not Recorded Date -???-???-???-???-???-?? ?-???-???-???-???-???-? ??- EGA Weight BP Urine Prot -???-???-???-???-???-?? ?-???-???-???-???-???-? ??- Glucose FHR FuHt Pres Dilation -???-???-???-???-???-?? ?-???-???-???-???-???-? ??- Effaced St Visit Note 02/06/22 -???-???-???-???-???-?? ?-???-???-???-???-???-? ??- 8w 2d 153 lb 118/76 -???-???-???-???-???-?? ?-???-???-???-???-???-? ??- 180 160 -???-???-???-???-???-?? ?-???-???-???-???-???-? ??- SM- CRL 1.6c m cons with LMP SM- CRL 1.6cm cons with LMP, GS ab normality seen coming off edge into the cavity 5 mm in size no additional blood flow separate from pole 02/22/22 -???-???-???-???-???-?? ?-???-???-???-???-???-? ??- 10w 4d 152 lb 104/72 -???-???-???-???-???-?? ?-???-???-???-???-???-? ??- 160 -???-???-???-???-???-?? ?-???-???-???-???-???-? ??- SM- fu ultra sound normal appearing sac discussed genetic testing if desired. 03/20/22 -???-???-???-???-???-?? ?-???-???-???-???-???-? ??- 14w 2d 148 lb 2 oz 118/70 Negative -???-???-???-???-???-?? ?-???-???-???-???-???-? ??- Negative 149 -???-???-???-???-???-?? ?-???-???-???-???-???-? ??- JV- pt was i n ER for severe bleeding which stopped abruptly after arrival. This was last week and she explained the bleeding as running down her leg. She has no further bleeding. On spec exam there is a small posterior cervical ectropion present. No subchorionic hemorrhage noted. pt is having a hard time with N/V and wants to try a reglan pump as zofran is not working. She has lost a little weight since her last visit. 04/17/22 -???-???-???-???-???-?? ?-???-???-???-???-???-? ??- 18w 2d 151 lb 2 oz 110/78 Negative -???-???-???-???-???-?? ?-???-???-???-???-???-? ??- Negative 152 -???-???-???-???-???-?? ?-???-???-???-???-???-? ??- -Jaquia mary cantrell (more content not included)... Normal [facility] Progress Noteon 05-22-2022 Drier Operator Helper Authentication Interface Message Text [facility]- TELEHEALTH MEDICINE CONSULT This is a telemedicine video visit that was performed with the patient's location at office and the provider's location at home office in [place]. Referring/Requesting Provider: Cheri Melvin APRN-* PCP: Sujatha Oconnor APRN-OVERLOCK WAISTLINE JOINER INDICATION FOR CONSULT: Abnormal ultrasound HISTORY OF PRESENT ILLNESS: Patient is a 27 y.o. at 23w2d who presents for consultation regarding abnormal ultrasound noted at anatomy ultrasound on 05/07 with posterior fossa cyst. She is otherwise healthy without any pertinent past medical history. She has had some vaginal bleeding earlier this that has resolved. She was also previously on Reglan for N/V but that is also improved and she currently takes Zofran as needed. Today the patient denies any OB complaints. She denies abdominal pain,vaginal bleeding, preeclampsia symptoms, leakage of fluid. OB History Para Term AB Living 2 1 SAB IAB Ectopic Multiple Live Births 1 # Outcome Date GA Lbr Carl/2nd Weight Sex Delivery Anes PTL Lv 2 Current 1 SAB 04/2020 6w0d Past Medical History: Diagnosis Date Anxiety Anxiety and depression was on medication before - stopped use with Depression Vaginal Pap smear, abnormal normal paps since Past Surgical History: Procedure Laterality Date DILATION AND CURETTAGE OF UTERUS 04/2020 PERTINENT FAMILY HISTORY: Family History Problem Relation Age of Onset Mental Illness Mother anxiety and depression Anxiety Disorder Mother Cancer Paternal Grandmother throat cancer- age 60's MEDS: Current Outpatient Medications Medication Sig Dispense Refill Last Dispense Assistance Program Adherence Comment Ondansetron HCl (ZOFRAN PO) Take by mouth As needed for the nausea Unknown (patient-reported) . Refill history: . Vit-Fe Fumarate-FA ( VITAMIN PO) Take 1 Tablet by mouth daily Unknown (patient-reported) . Refill history: . ALLERGY: No Known Allergies PHYSICAL EXAM: VITAL SIGNS: BP 110/72 Ht 165.1 cm Wt 71.3 kg (157 lb 3.2 oz) LMP 12/10/2021 BMI 26.16 kg/m Alert and oriented, NAD Abd gravid and nontender during ultrasound IMAGING: See ultrasound report for detailed findings, but in brief: 1. Single living intrauterine at 23 2/7 weeks with biometry consistent with clinical dates. 2. Anatomic survey was limited and was targeted at SOUND TECHNICIAN structures to re-evaluate posterior fossa cyst. A small posterior fossa cyst is again seen posterior and inferior to the cerebellum. It is midline, thin-walled and avascular. Sagittal imaging was limited but it does appear to have classic keyhole appearance with communication with 4th ventricle inferiorly. The cerebellar tonsils and vermis, lateral ventricles, and cavum septum pellucidum appear normal. No other extra-SOUND TECHNICIAN anatomic anomalies are visualized and cardiac imaging appears normal. These findings are most consistent with a Arianna Pouch cyst (or persistent Arianna Pouch). 3. Amniotic fluid appeared normal. 4. There is a small subchorionic hemorrhage noted again today decreased in size from prior exam, measuring 2.8 x 3.2 x 0.7 cm PERTINENT LABS: Low risk Panorama cfDNA IMPRESSION: Peyton is a 27 y.o. 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 Sen and her that the most likely diagnosis based on the ultrasound imaging is a Arianna Pouch cyst (or persistent Arianna pouch). A Arianna pouch is a normal embryologic structure. A cyst occurs after failure or delayed regression of pouch due to non-perforation of the Foramen of [place]. These are typically benign and have an excellent prognosis is isolated like her baby's is. 30-50% resolve spontaneously during the . They are not believed to be associated with an increased risk for aneuploidy when isolated, but we discussed her low risk cfDNA screening and reviewed the <1% chance for a disorder that has been screened for. In a limited case series, custodial followup to 8 years of age did not demonstrate any developmental delays. Some studies did suggest an increased risk for other anomalies, particularly cardiac, but not in all studies. I reassured Mrs. Sen that we do not see any other anomalies by ultrasound at this time and the cardiac imaging we obtained appears normal. This finding should not alter her care or delivery management. We discussed that definitive diagnosis prenatally is not possible with imaging alone, so other etiologies are possible but less likely. We also discussed the possibility of a posterior fossa arachnoid cyst. When posterior and small, these tend to also be benign with low risk for complications. If it is an arachnoid cyst, it has the potential to grow (about 2% of the time) and potentially compress structures resulting in CS (more content not included)... Normal [facility] Supervisor [employer] Office Visit Reporton 05-15-2022 Supervisor Motor Vehicle Assembly Office Visit Report [facility] [place] [address] [place], [place] [address] OFFICE VISIT Date of Service: 05/15/22 MR#: [id number] Acct: [id number] Name: PEYTON SEN Rep #: [id number] : 1995 Provider: Dr. 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 Is patient in pain?: No Allergies No Known Allergies Allergy (Verified 05/15/22 11:14) Medications vitamin#30 30 mg iron-10 mg iron-folic acid 1 mg-omg3 capsule cap PO 02/06/22 [History Confirmed 05/15/22] sertraline 25 mg tablet (Zoloft) 25 mg PO DAILY #30 tabs 05/02/22 [Rx Confirmed 05/15/22] Last Menstrual Period: 12/10/21 Zika: Zika virus screening: Negative : No PFSH PFSH Medical History Abnormal Pap smear of cervix Dysthymia Major depressive disorder, recurrent severe without psychotic features Uterine fibroid Surgical History History of dilation and curettage No significant past surgical history Social History household members: spouse housing: house current occupational status: employed 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 OB Visit RONIT Calculator Estimated Delivery Date Method Current WG Current Estimate 09/16/22 LMP (Certain) 22w 2d Expected Delivery Route/Plan Labor Preferences- CB/BF classes: [] labor support person: [] labor intervention preferences: [] pain management options preferred: [] cut cord/dad catch: [] : [] PP control planned: [] discussed possible routes of delivery and associated risks: [] special requests: [] Specific Issue/Plans Covid status: [] Flu vaccine: [] Tdap vaccine: [] Rhogam: [] LARC form signed: [] Problem list reviewed and updated with the most current plan of care details and appropriate orders placed. Relevant counseling for the gestational age provided. Continue routine care and follow up unless otherwise noted in visit notes/problem list details Initial Weight: Not Recorded Date -???-???-???-???-???-?? ?-???-???-???-???-???-? ??- EGA Weight BP Urine Prot -???-???-???-???-???-?? ?-???-???-???-???-???-? ??- Glucose FHR FuHt Pres Dilation -???-???-???-???-???-?? ?-???-???-???-???-???-? ??- Effaced St Visit Note 02/06/22 -???-???-???-???-???-?? ?-???-???-???-???-???-? ??- 8w 2d 153 lb 118/76 -???-???-???-???-???-?? ?-???-???-???-???-???-? ??- 180 160 -???-???-???-???-???-?? ?-???-???-???-???-???-? ??- SM- CRL 1.6c m cons with LMP SM- CRL 1.6cm cons with LMP, GS ab normality seen coming off edge into the cavity 5 mm in size no additional blood flow separate from pole 02/22/22 -???-???-???-???-???-?? ?-???-???-???-???-???-? ??- 10w 4d 152 lb 104/72 -???-???-???-???-???-?? ?-???-???-???-???-???-? ??- 160 -???-???-???-???-???-?? ?-???-???-???-???-???-? ??- SM- fu ultra sound normal appearing sac discussed genetic testing if desired. 03/20/22 -???-???-???-???-???-?? ?-???-???-???-???-???-? ??- 14w 2d 148 lb 2 oz 118/70 Negative -???-???-???-???-???-?? ?-???-???-???-???-???-? ??- Negative 149 -???-???-???-???-???-?? ?-???-???-???-???-???-? ??- JV- pt was i n ER for severe bleeding which stopped abruptly after arrival. This was last week and she explained the bleeding as running down her leg. She has no further bleeding. On spec exam there is a small posterior cervical ectropion present. No subchorionic hemorrhage noted. pt is having a hard time with N/V and wants to try a reglan pump as zofran is not working. She has lost a little weight since her last visit. 04/17/22 -???-???-???-???-???-?? ?-???-???-???-???-???-? ??- 18w 2d 151 lb 2 oz 110/78 Negative -???-???-???-???-???-?? ?-???-???-???-???-???-? ??- Negative 152 -???-???-???-???-???-?? ?-???-???-???-???-???-? ??- MH-Occa brow n discharge persists but no red bleeding. Feeling flutters. Nausea impr (more content not included)... Normal [facility] Supervisor [employer] Vehicle [employer] Office Visit Reporton 05-02-2022 Supervisor Motor Vehicle Assembly Office Visit Report [facility] [address] [place] [address] OFFICE VISIT Date of Service: 05/02/22 MR#: [id number] Acct: [id number] Name: PEYTON SEN Rep #: [id number] : 1995 Provider: Dr. 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 Is patient in pain?: No Allergies No Known Allergies Allergy (Verified 05/02/22 10:48) Medications vitamin#30 30 mg iron-10 mg iron-folic acid 1 mg-omg3 capsule cap PO 02/06/22 [History Confirmed 05/02/22] sertraline 25 mg tablet (Zoloft) 25 mg PO DAILY #30 tabs 05/02/22 [Rx Confirmed 05/02/22] Last Menstrual Period: 12/10/21 Current gender identity: female Zika: Zika virus screening: Negative : No PFSH PFSH Medical History Abnormal Pap smear of cervix Dysthymia Major depressive disorder, recurrent severe without psychotic features Uterine fibroid Surgical History History of dilation and curettage No significant past surgical history Social History household members: spouse housing: house current occupational status: employed 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 OB Visit RONIT Calculator Estimated Delivery Date Method Current WG Current Estimate 09/16/22 LMP (Certain) 20w 3d Expected Delivery Route/Plan Labor Preferences- CB/BF classes: [] labor support person: [] labor intervention preferences: [] pain management options preferred: [] cut cord/dad catch: [] : [] PP control planned: [] discussed possible routes of delivery and associated risks: [] special requests: [] Specific Issue/Plans Covid status: [] Flu vaccine: [] Tdap vaccine: [] Rhogam: [] LARC form signed: [] Problem list reviewed and updated with the most current plan of care details and appropriate orders placed. Relevant counseling for the gestational age provided. Continue routine care and follow up unless otherwise noted in visit notes/problem list details Initial Weight: Not Recorded Date -???-???-???-???-???-?? ?-???-???-???-???-???-? ??- EGA Weight BP Urine Prot -???-???-???-???-???-?? ?-???-???-???-???-???-? ??- Glucose FHR FuHt Pres Dilation -???-???-???-???-???-?? ?-???-???-???-???-???-? ??- Effaced St Visit Note 02/06/22 -???-???-???-???-???-?? ?-???-???-???-???-???-? ??- 8w 2d 153 lb 118/76 -???-???-???-???-???-?? ?-???-???-???-???-???-? ??- 180 160 -???-???-???-???-???-?? ?-???-???-???-???-???-? ??- SM- CRL 1.6c m cons with LMP SM- CRL 1.6cm cons with LMP, GS ab normality seen coming off edge into the cavity 5 mm in size no additional blood flow separate from pole 02/22/22 -???-???-???-???-???-?? ?-???-???-???-???-???-? ??- 10w 4d 152 lb 104/72 -???-???-???-???-???-?? ?-???-???-???-???-???-? ??- 160 -???-???-???-???-???-?? ?-???-???-???-???-???-? ??- SM- fu ultra sound normal appearing sac discussed genetic testing if desired. 03/20/22 -???-???-???-???-???-?? ?-???-???-???-???-???-? ??- 14w 2d 148 lb 2 oz 118/70 Negative -???-???-???-???-???-?? ?-???-???-???-???-???-? ??- Negative 149 -???-???-???-???-???-?? ?-???-???-???-???-???-? ??- JV- pt was i n ER for severe bleeding which stopped abruptly after arrival. This was last week and she explained the bleeding as running down her leg. She has no further bleeding. On spec exam there is a small posterior cervical ectropion present. No subchorionic hemorrhage noted. pt is having a hard time with N/V and wants to try a reglan pump as zofran is not working. She has lost a little weight since her last visit. 04/17/22 -???-???-???-???-???-?? ?-???-???-???-???-???-? ??- 18w 2d 151 lb 2 oz 110/78 Negative -???-???-???-???-???-?? ?-???-???-???-???-???-? ??- Negative 152 -???-???-???-???-???-?? ?-???-???-???-???-???-? ??- -Yousuf hernandez (more content not included)... Normal [facility] Supervisor [employer] Office Visit Reporton 04-17-2022 Supervisor Motor Vehicle Assembly Office Visit Report [facility] 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 Is patient in pain?: No Allergies No Known Allergies Allergy (Verified 04/17/22 09:43) Medications vitamin#30 30 mg iron-10 mg iron-folic acid 1 mg-omg3 capsule cap PO 02/06/22 [History Confirmed 04/17/22] Last Menstrual Period: 12/10/21 Current gender identity: female Zika: Zika virus screening: Negative : No PFSH PFSH Medical History (Updated 04/17/22 @ 10:06 by Cheri Melvin NP, FORESTRY WORKER-C) Abnormal Pap smear of cervix Dysthymia Major depressive disorder, recurrent severe without psychotic features Uterine fibroid Surgical History History of dilation and curettage No significant past surgical history Social History household members: spouse housing: house current occupational status: employed 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 OB Visit RONIT Calculator Estimated Delivery Date Method Current WG Current Estimate 09/16/22 LMP (Certain) 18w 2d Expected Delivery Route/Plan Labor Preferences- CB/BF classes: [] labor support person: [] labor intervention preferences: [] pain management options preferred: [] cut cord/dad catch: [] : [] PP control planned: [] discussed possible routes of delivery and associated risks: [] special requests: [] Specific Issue/Plans Covid status: [] Flu vaccine: [] Tdap vaccine: [] Rhogam: [] LARC form signed: [] Problem list reviewed and updated with the most current plan of care details and appropriate orders placed. Relevant counseling for the gestational age provided. Continue routine care and follow up unless otherwise noted in visit notes/problem list details Initial Weight: Not Recorded Date -???-???-???-???-???-?? ?-???-???-???-???-???-? ??- EGA Weight BP Urine Prot -???-???-???-???-???-?? ?-???-???-???-???-???-? ??- Glucose FHR FuHt Pres Dilation -???-???-???-???-???-?? ?-???-???-???-???-???-? ??- Effaced St Visit Note 02/06/22 -???-???-???-???-???-?? ?-???-???-???-???-???-? ??- 8w 2d 153 lb 118/76 -???-???-???-???-???-?? ?-???-???-???-???-???-? ??- 180 160 -???-???-???-???-???-?? ?-???-???-???-???-???-? ??- SM- CRL 1.6c m cons with LMP SM- CRL 1.6cm cons with LMP, GS ab normality seen coming off edge into the cavity 5 mm in size no additional blood flow separate from pole 02/22/22 -???-???-???-???-???-?? ?-???-???-???-???-???-? ??- 10w 4d 152 lb 104/72 -???-???-???-???-???-?? ?-???-???-???-???-???-? ??- 160 -???-???-???-???-???-?? ?-???-???-???-???-???-? ??- SM- fu ultra sound normal appearing sac discussed genetic testing if desired. 03/20/22 -???-???-???-???-???-?? ?-???-???-???-???-???-? ??- 14w 2d 148 lb 2 oz 118/70 Negative -???-???-???-???-???-?? ?-???-???-???-???-???-? ??- Negative 149 -???-???-???-???-???-?? ?-???-???-???-???-???-? ??- JV- pt was i n ER for severe bleeding which stopped abruptly after arrival. This was last week and she explained the bleeding as running down her leg. She has no further bleeding. On spec exam there is a small posterior cervical ectropion present. No subchorionic hemorrhage noted. pt is having a hard time with N/V and wants to try a reglan pump as GeoDigital is not working. She has lost a little weight since her last visit. 04/17/22 -???-???-???-???-???-?? ?-???-???-???-???-???-? ??- 18w 2d 151 lb 2 oz 110/78 Negative -???-???-???-???-???-?? ?-???-???-???-???-???-? ??- Negative 152 -???-???-???-???-???-?? ?-???-???-???-???-???-? ??- MH-Occa brow n discharge persists but no red bleeding. Feeling flutters. Nausea improved with reglan pump. Noting some sleep disturbance, anxiety with reglan. Will discus (more content not included)... Normal [facility] OB Limited (No Biometrics)on 03-30-2022 OB Limited (No Biometrics) [facility] [address] [place] [address] OB Limited (No Biometrics) MR#: [id number] Acct: [id number] Name: PEYTON SEN Rep #: [id number] : 1995 F 27 From: Juan Diego vo MD PCP: JORDAN Rao Status: REG CLI Study: OB Limited (No Biometrics) Date of Exam: 03/30 Exam# [id number] Ordering Dr: Kristel Clement STUDY: SECOND AND THIRD TRIMESTER OBSTETRICAL ULTRASOUND - LIMITED REASON FOR EXAM: Female, 27 years old well being LMP: No PRIOR ULTRASOUND: None. TECHNIQUE: Transabdominal TECHNICAL QUALITY: Adequate. FINDINGS: There is a single intrauterine fetus. The fetus is in a cephalic presentation. There is demonstrated cardiac activity with a heart rate of 147 bpm. There is a normal amniotic fluid volume. The largest amniotic fluid pocket measures 3.7 cm x 2.6 cm. The amniotic fluid index (CATARINA) is within normal limits. cm. The placenta is posterior in location and is not low lying. There are Grade 0 placental changes. The cervix measures 3.3 cm in length. There is a 4.2 x 4.3 cm x 1.9 cm heterogeneous density in the region of the cervix. This may represent possible fibroid. BIOMETRY: Age by LMP: 15 weeks, 5 days. RONIT by LMP: 09/16/2022. US/OB Limited (No Biometrics) IMPRESSION: Single live intrauterine gestation with a mean gestational age of 15 weeks and 5 days by LMP. 4.2 cm x 4.3 cm x 1.9 cm solid density in the region of the cervix. Fibroid should be ruled out. Electronically Signed: JuanD iego Johnson MD at 14:23 EDT Reading Location ID and State: [facility] / [place] , Service support , CC: JORDAN Oconnor; Dr. Kristel Clement MD Fixed Income Manager: Signed Normal [facility] Supervisor Motor Vehicle Assembly Office Visit Reporton 03-20-2022 Supervisor Motor Vehicle Assembly Office Visit Report [facility] [address] [place] [address] OFFICE VISIT Date of Service: 03/20/22 MR#: [id number] Acct: [id number] Name: PEYTON SEN Rep #: [id number] : 1995 Provider: Dr. 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 Is patient in pain?: No Allergies No Known Allergies Allergy (Verified 03/22/21 09:30) Medications ondansetron 4 mg disintegrating tablet 4 mg PO Q8H PRN nausea and vomiting #30 tabs 01/24/22 [Rx Confirmed 03/20/22] vitamin#30 30 mg iron-10 mg iron-folic acid 1 mg-omg3 capsule cap PO 02/06/22 [History Confirmed 03/20/22] prochlorperazine maleate 10 mg tablet (Compazine) 10 mg PO Q8H PRN nausea and vomiting #90 tabs 02/22/22 [Rx Confirmed 03/20/22] Last Menstral Period: 12/10/21 Zika: Zika virus screening: Negative : No PFSH PFSH Medical History Abnormal Pap smear of cervix Dysthymia Major depressive disorder, recurrent severe without psychotic features Surgical History History of dilation and curettage No significant past surgical history Social History household members: spouse housing: house current occupational status: employed 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 OB Visit RONIT Calculator Estimated Delivery Date Method Current WG Current Estimate 09/16/22 LMP (Certain) 14w 2d Expected Delivery Route/Plan Labor Preferences- CB/BF classes: [] labor support person: [] labor intervention preferences: [] pain management options preferred: [] cut cord/dad catch: [] : [] PP control planned: [] discussed possible routes of delivery and associated risks: [] special requests: [] Specific Issue/Plans Covid status: [] Flu vaccine: [] Tdap vaccine: [] Rhogam: [] LARC form signed: [] Problem list reviewed and updated with the most current plan of care details and appropriate orders placed. Relevant counseling for the gestational age provided. Continue routine care and follow up unless otherwise noted in visit notes/problem list details Initial Weight: Not Recorded Date -???-???-???-???-???-?? ?-???-???-???-???-???-? ??- EGA Weight BP Urine Prot -???-???-???-???-???-?? ?-???-???-???-???-???-? ??- Glucose FHR FuHt Pres Dilation -???-???-???-???-???-?? ?-???-???-???-???-???-? ??- Effaced St Visit Note 02/06/22 -???-???-???-???-???-?? ?-???-???-???-???-???-? ??- 8w 2d 153 lb 118/76 -???-???-???-???-???-?? ?-???-???-???-???-???-? ??- 180 160 -???-???-???-???-???-?? ?-???-???-???-???-???-? ??- SM- CRL 1.6c m cons with LMP SM- CRL 1.6cm cons with LMP, GS ab normality seen coming off edge into the cavity 5 mm in size no additional blood flow separate from pole 02/22/22 -???-???-???-???-???-?? ?-???-???-???-???-???-? ??- 10w 4d 152 lb 104/72 -???-???-???-???-???-?? ?-???-???-???-???-???-? ??- 160 -???-???-???-???-???-?? ?-???-???-???-???-???-? ??- SM- fu ultra sound normal appearing sac discussed genetic testing if desired. 03/20/22 -???-???-???-???-???-?? ?-???-???-???-???-???-? ??- 14w 2d 148 lb 2 oz 118/70 Negative -???-???-???-???-???-?? ?-???-???-???-???-???-? ??- Negative 149 -???-???-???-???-???-?? ?-???-???-???-???-???-? ??- JV- pt was i n ER for severe bleeding which stopped abruptly after arrival. This was last week and she explained the bleeding as running down her leg. She has no further bleeding. On spec exam there is a small posterior cervical ectropion present. No subchorionic hemorrhage noted. pt is having a hard time with N/V and wants to try a reglan pump as zofran is not working. She has lost a little weight since her last visit. ACOG First Trimester First Trimester: Desire for , Alcohol, Tobacco Cessation, Illicit/Recreational Drug/Substance Use, Intimate Partner Violence, Barriers to care, Unstable H (more content not included)... Normal [facility] ABO/RH GROUP TESTon 03-13-20 22 ABO TYPE O Normal [facility] Comment on above: Performed By: #### A CHRISTINA #### [address] [address] RH TYPE Positive Normal [facility] Comment on above: Performed By: #### A CHRISTINA #### [address] [address] BASIC METABOLIC PANELon 02-26 Anion gap [Moles/Vol] 12 mmol/L Normal - [facility] Comment on above: Performed By: #### B MP #### [address] [address] Calcium [Mass/Vol] 8.9 mg/dL Normal 8.6 - 10.3 [facility] Comment on above: Performed By: #### B MP #### [address] [address] Chloride [Moles/Vol] 105 mmol/L Normal 98 - 107 [facility] Comment on above: Performed By: #### B MP #### [address] [address] Creatinine [Mass/Vol] 0.49 mg/dL Low 0.50 - 1.05 [facility] Comment on above: Performed By: #### B MP #### [address] [address] eGFR FEMALE >90 Normal >90 [facility] Comment on above: Result Comment: CALC ULATIONS OF ESTIMATED GFR ARE PERFORMED USING THE 2020 CKD-EPI STUDY REFIT EQUATION WITHOUT THE RACE VARIABLE FOR THE IDMS-TRACEABLE CREATININE METHODS. https://jasn.asnjournals.org/content/early//ASN.676976268 8 Performed By: #### B MP #### [address] [address] Glucose [Mass/Vol] 93 mg/dL Normal 74 - 99 [facility] Comment on above: Performed By: #### B MP #### [address] [address] HCO3 (Bld) [Moles/Vol] 21 mmol/L Normal 21 - 32 [facility] Comment on above: Performed By: #### B MP #### [address] [address] Potassium [Moles/Vol] 3.6 mmol/L Normal 3.5 - 5.3 [facility] Comment on above: Performed By: #### B MP #### [address] [address] Sodium [Moles/Vol] 134 mmol/L Low 136 - 145 [facility] Comment on above: Performed By: #### B MP #### [address] [address] Urea nitrogen [Mass/Vol] 5 mg/dL Low 6 - 23 [facility] Comment on above: Performed By: #### B MP #### [address] [address] CBC AND DIFFERENTIALon 03-13 Basophils (Bld) [#/Vol] 0.00 10*3/uL Normal 0.00 - 0.10 [facility] Comment on above: Performed By: #### C BCDF #### [address] [address] Basophils/100 WBC (Bld) 0.4 % Normal 0.0 - 2.0 [facility] Comment on above: Performed By: #### C BCDF #### [address] [address] Eosinophils (Bld) [#/Vol] 0.10 10*3/uL Normal 0.00 - 0.70 [facility] Comment on above: Performed By: #### C BCDF #### [address] [address] Eosinophils/100 WBC (Bld) 1.7 % Normal 0.0 - 6.0 [facility] Comment on above: Performed By: #### C BCDF #### [address] [address] Erythrocyte distribution width (RBC) [Ratio] 15.1 % High 11.5 - 14.5 [facility] Comment on above: Performed By: #### C BCDF #### [address] [address] Hematocrit (Bld) [Volume fraction] 35.6 % Low 36.0 - 46.0 [facility] Comment on above: Performed By: #### C BCDF #### [address] [address] Hemoglobin (Bld) [Mass/Vol] 11.6 g/dL Low 12.0 - 16.0 [facility] Comment on above: Performed By: #### C BCDF #### [address] [address] Lymphocytes (Bld) [#/Vol] 1.50 10*3/uL Normal 1.20 - 4.80 [facility] Comment on above: Performed By: #### C BCDF #### [address] [address] Lymphocytes/100 WBC (Bld) 19.0 % Normal 13.0 - 44.0 [facility] Comment on above: Performed By: #### C BCDF #### [address] [address] MCHC (RBC) [Mass/Vol] 32.6 g/dL Normal 32.0 - 36.0 [facility] Comment on above: Performed By: #### C BCDF #### [address] [address] MCV (RBC) [Entitic vol] 77 fL Low 80 - 100 [facility] Comment on above: Performed By: #### C BCDF #### [address] [address] Monocytes (Bld) [#/Vol] 0.60 10*3/uL Normal 0.10 - 1.00 [facility] Comment on above: Performed By: #### C BCDF #### [address] [address] Monocytes/100 WBC (Bld) 7.2 % Normal 2.0 - 10.0 [facility] Comment on above: Performed By: #### C BCDF #### [address] [address] Neutrophils (Bld) [#/Vol] 5.90 10*3/uL Normal 1.20 - 7.70 [facility] Comment on above: Result Comment: Perc ent differential counts (%) should be interpreted in the context of the absolute cell counts (cells/L). Performed By: #### C BCDF #### [address] [address] Neutrophils/100 WBC (Bld) 71.7 % Normal 40.0 - 80.0 [facility] Comment on above: Performed By: #### C BCDF #### [address] [address] Platelets (Bld) [#/Vol] 307 10*3/uL Normal 150 - 450 [facility] Comment on above: Performed By: #### C BCDF #### [address] [address] RBC 4.63 x10E12/L Normal 4.00 - 5.20 [facility] Comment on above: Performed By: #### C BCDF #### [address] [address] WBC (Bld) [#/Vol] 8.2 10*3/uL Normal 4.4 - 11.3 [facility] Comment on above: Performed By: #### C BCDF #### [address] [address] EMR ADDONon 03-13-2022 ADDON CONFIRMATION REQUEST REC'D Normal [facility] Comment on above: Performed By: #### E MRAD #### [place] [id number] HCG,BETA-QUANTITATIVEon 02-26 HCG,BETA-QUANTITAT LISA [id number] mIU/mL Abnormal [facility] Comment on above: Result Comment: Low- level positive HCG results can be seen in early , in lester- or post-menopausal females due to normal pituitary HCG production, or with analytic interference. Repeat testing in 48-72 hours can aid in assessing for as results should double in this time period. FSH measurement is recommended in lester- or post-menopausal females as concurrent elevation of FSH can support pituitary production as the source of the HCG elevation. . Total HCG measurement is performed using the Brianna Jasmin Access Immunoassay which detects intact HCG and free beta HCG subunit. This test is not indicated for use as a tumor marker. HCG testing is performed using a different test methodology at [facility] than other [facility]. Direct result comparison should only be made within the same method. REF VALUES NON FEMALE <5 MALES <5 Performed By: #### H CGQU #### [place] [id number] Provider Note - ED v3on 02-26 Provider Note - ED v3 Provider Note: Chart Review: HISTORY OF PRESENTING ILLNESS PEYTON is a 27 year old Female and was seen by me at 13-Mar-2022 14:20 for a chief complaint of vaginal bleeding (c/o vaginal bleeding that started just field captain. states she stood and had a gush of blood. pt is approx 13 weeks preg)(1). Triage Information: Most recent Vital Sign Value Date Temp (F): 100 03-13-2022 14:24 Temp (C): 37.7 03-13-2022 14:24 Heart Rate (beats/min): 105 03-13-2022 14:24 Respirations (breaths/min): 20 03-13-2022 14:24 SpO2 (%): 100 03-13-2022 14:24 BP Systolic (mm Hg): 125 03-13-2022 14:24 BP Diastolic (mm Hg): 78 03-13-2022 14:24 PAST MEDICAL HISTORY ALLERGIES/INTOLERANCES: No Known Allergies HEALTH HISTORY: No documented data. OUTPATIENT MEDICATIONS: Home Medications Review Status for Reconciliation: Complete Med Status: Patient Currently Takes Medications Drug Name: ONDANSETRON ODT 4 MG TABLET Instructions: 1 tab(s) orally every 8 hours, As Needed - for nausea and vomiting Drug Name: PROCHLORPERAZINE 10 MG TAB Instructions: 1 tab(s) orally every 8 hours, As Needed - for nausea and vomiting Drug Name: HYDROXYZINE HCL 25 MG TABLET Instructions: 1 tab(s) orally once a day, As Needed - for anxiety SIGNIFICANT EVENTS: No documented data. CRITICAL CARE RESULTS: Recent Lab Results: I have reviewed these laboratory results: Urinalysis with Culture if Indicated 13-Mar-2022 15:53:00 ResultValue Color, Urine Colorless Reference Range: STRAW,YELLOW Appearance, Urine CLEAR Specific [place], Urine 1.001 L pH, Urine 6.0 Protein, Urine NEGATIVE Glucose, Urine NEGATIVE Blood, Urine LARGE(3+) A Ketones, Urine NEGATIVE Bilirubin, Urine NEGATIVE Urobilinogen, Urine <2.0 Nitrite, Urine Negative Leukocyte Esterase, Urine NEGATIVE Urinalysis, Microscopic 13-Mar-2022 15:53:00 ResultValue White Cells <1 Red Blood Cells None Epithelial Cells, Squamous <1 Bacteria, Urine 1+ A Complete Blood Count + Differential 13-Mar-2022 14:53:00 ResultValue White Blood Cell Count 8.2 Red Blood Cell Count 4.63 HGB 11.6 L HCT 35.6 L MCV 77 L MCHC 32.6 PLT 307 RDW-CV 15.1 H Neutrophil % 71.7 Lymphocyte % 19.0 Monocyte % 7.2 Eosinophil % 1.7 Basophil % 0.4 Neutrophil Count 5.90 Lymphocyte Count 1.50 Monocyte Count 0.60 Eosinophil Count 0.10 Basophil Count 0.00 Basic Metabolic Panel 13-Mar-2022 14:53:00 ResultValue Glucose, Serum 93 NA 134 L K 3.6 CL 105 Bicarbonate, Serum 21 Anion Gap, Serum 12 BUN 5 L CREAT 0.49 L GFR Female >90 Calcium, Serum 8.9 HCG, Beta Quantitative 13-Mar-2022 14:53:00 ResultValue HCG, Beta Quantitative [id number] A Radiology Results: Impression: Single live intrauterine gestation with mean gestational age of 13 weeks, 0 days, + / -8 days. Ultrasound Trans Vag Preg Uterus [Mar 13 2022 4:50PM] Impression: Ultrasound Trans Vag Preg Uterus [Mar 13 2022 4:06PM] VITAL SIGNS: T PRBP SpO2O2(LPM) %FiO2 Method 13-Mar-2022 16:36:[id number] 100 room air, no respiratory support 13-Mar-2022 14:24:[id number]/7 8 100 room air, no respiratory support 13-Mar-2022 14:13:[id number]/7 8 100 room air, no respiratory support MDM MDM/ED COURSE: PMH: Reviewed PSH: Reviewed Social History: Reviewed. Allergies reviewed. HPI: This is a 27 year old female, [id number] at 6 weeks, currently at 13 weeks gestation, who presents to the ED today accompanied by her Abran with complaints of bright red vaginal bleeding that began 20 minutes prior to ED arrival. States she stood up and had a gush of blood. Mild lower abdominal cramping. Seeing Dr Clement of [facility] in [place]. Has had two ultrasounds that showed IUP. Denies recent sexual intercourse. Had prior spotting during this . REVIEW OF SYSTEMS: All other systems reviewed and negative except as listed in HPI. PHYSICAL EXAM: GENERAL: Vitals noted, no distress. Alert and oriented x 3. Non-toxic. NECK: Supple. No masses. No midline tenderness. No meningeal signs. CARDIAC: Regular rate, rhythm. No murmurs rubs or gallops. No JVD. PULMONARY: Lungs clear and equal bilaterally. No wheezes rales or rhonchi. No respiratory distress. ABDOMEN: Soft, nondistended, and nontender. EXTREMITIES: No peripheral edema. SKIN: No rash. Warm, dry, and intact. NEURO: No focal neurologic deficits. ED COURSE: This patient was seen and examined by myself and discussed with ED attending Dr. Hernandez. Able to doppler FHTs in the 150's per nursing staff. IV inserted. Labs drawn and noted above. Hydrated with NS 500 ml bolus. Had another small gush of blood in the bathroom. US shows single live intrauterine gestation with mean gestational age of 13 weeks, 0 days. FHT 150's on US. She's reassured. Recommended pelvic rest until cleared by OB. She verbalized (more content not included)... Normal [facility] Risk Screen - Adult Emergenc yon 03-13-2022 Risk Screen - Adult Emergency Preferred Language: Preferred Language: Preferred Language for Discussing Health Care (patient/designee)Dane pruitt Advanced Directives: Advance Directive/DNRno Family Violence Adult: Abuse Screen: Are you or have you been threatened or abused physically, emotionally, or sexually by anyoneno Learning Assessment (Patient): Learning Assessment (Patient): Patient is Able to be Assessed for Learningyes Factors Influencing Readiness to Learnn/a Factors that Impact Ability to Learnnone Devices/Methods Used to Communicatenone Learning Preferencesverbal instruction; written material Cultural Considerationsnone Developmental Considerationsnone Confucianist Considerationsnone Learning Assessment (Other Learner): Learning Assessment (Other Learner): Other learner availableno Pressure Injury/TB/Substance: Pressure Injury: Do you have a coughno Smoking Statusnever smoker Alcohol Usedenies Drug Usedenies Admission Risk Screen: Significant IndicatorsComplete CAGE: CAGE: Is this an injured patient at a Trauma Center ([facility]/[place]): no Electronic Signatures: Mary Singh (FLORY) (Signed 13-Mar-2022 14:31) Authored: Preferred Language, Advanced Directives, Family Violence Adult, Learning Assessment (Patient), Learning Assessment (Other Learner), Pressure Injury/TB/Substance, Pressure Injury, CAGE Last Updated: 13-Mar-2022 14:31 by Mary Singh (FLORY) [facility] Triage - EDon 03-13-2022 Triage - ED Quick Triage: Are You yes Have You Given In The Last 6 Weeksno Are You Currently Breastfeedingno Chart Review: PRIMARY ASSESSMENT ABCD Normal Findings: airway open and patent, circulation normal and alert and oriented ARRIVAL INFORMATION Means of Arrival: Ambulatory Mode of Arrival: private vehicle Arrival From: home Accompanied By: spouse/significant other Language: Spoken Language Preferred: Mongolian Reading Language Preferred: Mongolian Present on Arrival: Device Present on Arrival to ED: no CHIEF COMPLAINT PEYTON FLORES is a Female patient with a chief complaint of vaginal bleeding (c/o vaginal bleeding that started just field captain. states she stood and had a gush of blood. pt is approx 13 weeks preg). Triage Date/Time: 13-Mar-2022 14:13 RAJINDER: 3 Pain Rating (0-10): 3 = Mild Pain location: lower abd Vital Signs: Temperature: 100.0F ( 37.7C) taken temporal Blood Pressure: 125/78 Mean: Heart Rate: 105 Respiratory Rate: 20 Pulse Oximetry: 100% on room air, no respiratory support. Height: 5 feet 6.00 inches. 167.6 CM Weight: 150.3 pounds. Calculated 68.2 kg. (stated) Calculated BMI (kg/m2): 24.279 Calculated BSA (m2) 1.78 [place] Coma Scale: Best Eye Response: (E4) spontaneous Best Motor Response: (M6) obeys commands Best Verbal Response: (V5) oriented Monty Score: 15 Allergies: no Last menstrual period: 08-Dec-2021 BAG SORTER History: Patient has homicidal thoughts: no Symptoms Are POSITIVE For: abdominal cramp and vaginal bleeding. Risk Screens Suicide Risk Screen In the Past Month: Have you wished you were or wished you could go to sleep and not wake up no In the Past Month: Have you had any actual thoughts of killing yourself no In Your Lifetime: Have you ever done anything, started to do anything, or prepared to do anything to end your life no [place] Fall Scale Screening Has the patient fallen before (or is the patient in the ED as a result of a fall) has not had a fall Does the patient have an impaired gait does not have impaired gait Is the patient cognitively impaired not cognitively impaired Interventions: [place]atham Fall Interventions: LOW INTERVENTIONS: *patient oriented to surroundings and call system, * patient/family falls education completed and documented, *patients fall status communicated during bedside handoff, *whiteboard updated, *mode of toileting discussed with patient, *bed in low position with brakes locked, *call light in reach, * non-skid footwear TRAVEL HISTORY Travel History Coronavirus Screening: no exposure or symptoms Travel Exposure History: NO travel to International locations in the past 30 days PAIN Pain Scale Used: SUHA Pain Rating (0-10): 3 = Mild Past Medical History: Past Medical History Reviewedyes Electronic Signatures: Mary Singh (FLORY) (Signed 13-Mar-2022 14:32) Authored: Quick Triage, Risk Screens, Pain, Arrival, ABCD, Travel History, Chart Review, Scores, Past Medical History Last Updated: 13-Mar-2022 14:32 by Mary Singh (RN) Normal [facility] UA MICROSCOPICon 03-13-2022 BACTERIA 1+ /HPF Abnormal [facility] Comment on above: Performed By: #### U AMIC #### [place] [address] RBC None Normal 0-5 [facility] Comment on above: Performed By: #### U AMIC #### [place] [id number] SQUAMOUS EPITH. CELLS <1 Normal [facility] Comment on above: Performed By: #### U AMIC #### [address] [address] WBC (U) [#/Vol] /uL Normal 0-5 [facility] Comment on above: Performed By: #### U AMIC #### [address] [address] URINALYSIS WITH CULTURE IF I NDICATEDon 03-13-2022 Appearance (U) CLEAR Normal CLEAR [facility] Comment on above: Performed By: #### U ARFX #### [address] [address] Bilirubin Ql (U) Negative Normal NEGATIVE [facility] Comment on above: Performed By: #### U ARFX #### [place] [id number] Color (U) Colorless Normal STRAW,YELLOW [facility] Comment on above: Performed By: #### U ARFX #### [place] [address] Glucose Ql (U) Negative Normal NEGATIVE [facility] Comment on above: Performed By: #### U ARFX #### [place] [address] Hemoglobin Ql (U) LARGE(3+) Abnormal NEGATIVE [facility] Comment on above: Performed By: #### U ARFX #### [place] [address] Ketones Ql (U) Negative Normal NEGATIVE [facility] Comment on above: Performed By: #### U ARFX #### [place] [address] Leukocyte esterase Test strip Ql (U) Negative Normal NEGATIVE [facility] Comment on above: Performed By: #### U ARFX #### [place] [address] Nitrite Ql (U) Negative Normal NEGATIVE [facility] Comment on above: Performed By: #### U ARFX #### [place] [address] pH (U) 6.0 [pH] Normal 5.0 - 8.0 [facility] Comment on above: Performed By: #### U ARFX #### [place] [address] Protein Ql (U) Negative Normal NEGATIVE [facility] Comment on above: Performed By: #### U ARFX #### [place] [address] Specific gravity (U) [Rel density] 1.001 Low 1.005 - 1.035 [facility] Comment on above: Performed By: #### U ARFX #### [place] [address] Urobilinogen (U) [Mass/Vol] mg/dL Normal 0.0 - 1.9 [facility] Comment on above: Performed By: #### U ARFX #### [address] [address] URINE CULTURE,BACTERIALon URINE CULTURE,BACTERIAL PATIENT: PEYTON SEN LOCATION: [facility]STIN WILLIAMSON#: [id number] : 89 AGE: SEX: F ORDERED BY: DOMINGA SEPULVEDA SOURCE: URINE COLLECTED: 03/13/22 17:00 ANTIBIOTICS AT ANGI.: RECEIVED : 03/14/22 00:21 SITE: Clean Catch/Voided R E S U L T S URINE CULTURE,BACTERIAL FINAL 03/14/22 23:06 NO SIGNIFICANT GROWTH. [facility] Comment on above: Performed By: #### E MRAD #### [address] [address] US VIABon 03-13-2022 US VIAB Patient Name: PEYTON SEN STUDY: US VIAB; 03/13/2022 4:01 pm INDICATION: vag bleeding, 13 weeks . Clinical age is 13 weeks, 0 days, with clinical RONIT of 09/18/2022. COMPARISON: None. ACCESSION NUMBER(S): [id number] ORDERING CLINICIAN: DOMINGA SEUPLVEDA TECHNIQUE: Transabdominal and endovaginal images were obtained. Grayscale imaging, color Doppler, and spectral Doppler were utilized. FINDINGS: The uterus measured 11.5 x 7.0 x 9.2 cm. There was a single, live intrauterine gestation with heart rate of 157 beats per minute. There was a normal appearing yolk sac adjacent to the developing fetus. The right ovary measured 31 x 20 x 35 mm, and was sonographically unremarkable. The left ovary measured 40 x 22 x 29 mm and was sonographically unremarkable. Color Doppler and spectral Doppler showed preserved bilateral ovarian blood flow. There was no free pelvic fluid. Mean gestational age based on CRL is 13 weeks, 0 days, + / -8 days. Ultrasound RONIT is 09/18/2022. IMPRESSION: Single live intrauterine gestation with mean gestational age of 13 weeks, 0 days, + / -8 days. Electronically signed by: DEBI MCNEAL MD [facility] CBC W/Diff, Automatedon 07-2 Absolute Lymph 2.08 X10 3/uL Normal 0.83-4.51 [facility] Comment on above: Performed By: #### L 900.0098, L509.4005, L3890.6100, L100.0100, L3890.6005, L3890.6300, BTS, L509.8000 #### [facility] [address] [place], [address] Absolute Neut 6.6 X10 3/uL Normal 2.0-7.7 [facility] Comment on above: Performed By: #### L 900.0098, L509.4005, L3890.6100, L100.0100, L3890.6005, L3890.6300, BTS, L509.8000 #### [facility] [address] [place], [address] Basophils/100 WBC (Bld) 0.6 % Normal 0-1 [facility] Comment on above: Performed By: #### L 900.0098, L509.4005, L3890.6100, L100.0100, L3890.6005, L3890.6300, BTS, L509.8000 #### [facility] [address] [place], [address] Eosinophils/100 WBC (Bld) 1.9 % Normal 0-5 [facility] Comment on above: Performed By: #### L 900.0098, L509.4005, L3890.6100, L100.0100, L3890.6005, L3890.6300, BTS, L509.8000 #### [facility] [address] [place], [address] Erythrocyte distribution width (RBC) [Ratio] 14.3 % Normal 11.6-14.6 [facility] Comment on above: Performed By: #### L 900.0098, L509.4005, L3890.6100, L100.0100, L3890.6005, L3890.6300, BTS, L509.8000 #### [facility] [address] [place], [address] Hematocrit (Bld) [Volume fraction] 35.2 % Low 37-47 [facility] Comment on above: Performed By: #### L 900.0098, L509.4005, L3890.6100, L100.0100, L3890.6005, L3890.6300, BTS, L509.8000 #### [facility] [address] [place], [address] Hemoglobin (Bld) [Mass/Vol] 11.7 g/dL Low 12.0-15.0 [facility] Comment on above: Performed By: #### L 900.0098, L509.4005, L3890.6100, L100.0100, L3890.6005, L3890.6300, BTS, L509.8000 #### [facility] [address] [place], [address] IG% 0.500 Normal 0.0-0.9 [facility] Comment on above: Result Comment: IG% - Immature Granulocytes (promyelocytes, myelocytes and metamyelocytes) > 1% indicates that a LEFT SHIFT is Present. Performed By: #### L 900.0098, L509.4005, L3890.6100, L100.0100, L3890.6005, L3890.6300, BTS, L509.8000 #### [facility] [address] [place], [address] Lymphocytes/100 WBC (Bld) 21.4 % Normal 19-41 [facility] Comment on above: Performed By: #### L 900.0098, L509.4005, L3890.6100, L100.0100, L3890.6005, L3890.6300, BTS, L509.8000 #### [facility] [address] [place], [address] MCH (RBC) [Entitic mass] 25.4 pg Low 27.0-32.0 [facility] Comment on above: Performed By: #### L 900.0098, L509.4005, L3890.6100, L100.0100, L3890.6005, L3890.6300, BTS, L509.8000 #### [facility] [address] [place], [address] MCHC (RBC) [Mass/Vol] 33.2 g/dL Normal 32-36 [facility] Comment on above: Performed By: #### L 900.0098, L509.4005, L3890.6100, L100.0100, L3890.6005, L3890.6300, BTS, L509.8000 #### [facility] [address] [place], [address] MCV (RBC) [Entitic vol] 76.5 fL Low 81-99 [facility] Comment on above: Performed By: #### L 900.0098, L509.4005, L3890.6100, L100.0100, L3890.6005, L3890.6300, BTS, L509.8000 #### [facility] [address] [place], [address] Monocytes/100 WBC (Bld) 7.2 % Normal 0-10 [facility] Comment on above: Performed By: #### L 900.0098, L509.4005, L3890.6100, L100.0100, L3890.6005, L3890.6300, BTS, L509.8000 #### [facility] [address] [place], [address] Neutrophils/100 WBC (Bld) 68.4 % Normal 47-70 [facility] Comment on above: Performed By: #### L 900.0098, L509.4005, L3890.6100, L100.0100, L3890.6005, L3890.6300, BTS, L509.8000 #### [facility] [address] [place], [address] Nucleated RBC (Bld) [#/Vol] 0 10*3/uL Normal 0-5 [facility] Comment on above: Performed By: #### L 900.0098, L509.4005, L3890.6100, L100.0100, L3890.6005, L3890.6300, BTS, L509.8000 #### [facility] [address] [place], [address] Platelet mean volume (Bld) [Entitic vol] 9.9 fL Normal 6.2-12.0 [facility] Comment on above: Performed By: #### L 900.0098, L509.4005, L3890.6100, L100.0100, L3890.6005, L3890.6300, BTS, L509.8000 #### [facility] [address] [place], [address] Platelets (Bld) [#/Vol] 336 10*3/uL Normal 150-450 [facility] Comment on above: Performed By: #### L 900.0098, L509.4005, L3890.6100, L100.0100, L3890.6005, L3890.6300, BTS, L509.8000 #### [facility] [address] [place], [address] RBC (Bld) [#/Vol] 4.60 10*6/uL Normal 4.2-5.[address] [facility] Comment on above: Performed By: #### L 900.0098, L509.4005, L3890.6100, L100.0100, L3890.6005, L3890.6300, BTS, L509.8000 #### [facility] [address] [place], [address] RDW SD 39.5 fl Normal 35.1-43.9 [facility] Comment on above: Performed By: #### L 900.0098, L509.4005, L3890.6100, L100.0100, L3890.6005, L3890.6300, BTS, L509.8000 #### [facility] [address] [place], [address] WBC (Bld) [#/Vol] 9.7 10*3/uL Normal 4.4-11.0 [facility] Comment on above: Performed By: #### L 900.0098, L509.4005, L3890.6100, L100.0100, L3890.6005, L3890.6300, BTS, L509.8000 #### [facility] [address] [place], [address] HIV - WCHon 02-22-2022 HIV Non-Reactive Normal Nonreactive [facility] Comment on above: Order Comment: Reaso n for Exam: Performed By: #### L 900.0098, L509.4005, L3890.6100, L100.0100, L3890.6005, L3890.6300, BTS, L509.8000 #### [facility] [address] [place], [address] Hepatitis B Surface Antigeno n 02-22-2022 HEP B Surf Ag Non-Reactive Normal Nonreactive [facility] Comment on above: Order Comment: Reaso n for Exam: Performed By: #### L 900.0098, L509.4005, L3890.6100, L100.0100, L3890.6005, L3890.6300, BTS, L509.8000 #### [facility] [address] [place], [address] Hepatitis C Antibodyon 02-22 Hepatitis C Ab Non-Reactive Normal Nonreactive [facility] Comment on above: Order Comment: Reaso n for Exam: Result Comment: Non Reactive: < 0.8 Equivocal: >/= 0.8 to < 1.0 Reactive: >/= 1.0 The CDC recommends that a reactive/equivocal HCV antibody result be followed up by the HCV Nucleic Acid Amplification test ([id number]) Performed By: #### L 900.0098, L509.4005, L3890.6100, L100.0100, L3890.6005, L3890.6300, BTS, L509.8000 #### [facility] [address] [place], [address] L509.8000on 02-22-2022 Syphilis Abs Non-Reactive Normal [facility] Comment on above: Order Comment: Reaso n for Exam: Performed By: #### L 900.0098, L509.4005, L3890.6100, L100.0100, L3890.6005, L3890.6300, BTS, L509.8000 #### [facility] [address] [place], [place], [address] NATERAon 02-22-2022 NATURA MAILED SPECIMEN Normal [facility] Comment on above: Performed By: #### L 900.0098, L509.4005, L3890.6100, L100.0100, L3890.6005, L3890.6300, BTS, L509.8000 #### [facility] [address] [place], [address] Supervisor Motor Vehicle [employer] Office Visit Reporton 02-22-2022 Supervisor Motor Vehicle Assembly Office Visit Report [facility] [address] [place], [place] [address] OFFICE VISIT Date of Service: 02/22/22 MR#: [id number] Acct: [id number] Name: PEYOTN SEN Rep #: [id number] : 1995 Provider: Dr. Kristel rosario MD Age/Sex: 27/F [place] [facility] [place]: Signed Intake Vital Signs 02/22/22 11:19 02/22/22 11:21 Height 5 ft 5 in 5 ft 5 in Weight: 152 lb BMI 25.2 BP 104/72 Intake Visit Reasons: follow up early ultrasound Chief Complaint: est ob 10w4d follow up [employer] Helper Required: No Is patient in pain?: No Allergies No Known Allergies Allergy (Verified 03/22/21 09:30) Medications ondansetron 4 mg disintegrating tablet 4 mg PO Q8H PRN nausea and vomiting #30 tabs 01/24/22 [Rx Confirmed 02/22/22] vitamin#30 30 mg iron-10 mg iron-folic acid 1 mg-omg3 capsule cap PO 02/06/22 [History Confirmed 02/22/22] prochlorperazine maleate 10 mg tablet (Compazine) 10 mg PO Q8H PRN nausea and vomiting #90 tabs 02/22/22 [Rx Confirmed 02/22/22] Last Menstral Period: 12/10/21 Zika: Zika virus screening: Negative : No PFSH PFSH Medical History Abnormal Pap smear of cervix Dysthymia Major depressive disorder, recurrent severe without psychotic features Surgical History History of dilation and curettage No significant past surgical history Social History household members: spouse housing: house current occupational status: employed 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 OB Visit RONIT Calculator Estimated Delivery Date Method Current WG Current Estimate 09/16/22 LMP (Certain) 10w 4d Expected Delivery Route/Plan Labor Preferences- CB/BF classes: [] labor support person: [] labor intervention preferences: [] pain management options preferred: [] cut cord/dad catch: [] : [] PP control planned: [] discussed possible routes of delivery and associated risks: [] special requests: [] Specific Issue/Plans Covid status: [] Flu vaccine: [] Tdap vaccine: [] Rhogam: [] LARC form signed: [] Problem list reviewed and updated with the most current plan of care details and appropriate orders placed. Relevant counseling for the gestational age provided. Continue routine care and follow up unless otherwise noted in visit notes/problem list details Initial Weight: Not Recorded Date -???-???-???-???-???-?? ?-???-???-???-???-???-? ??- EGA Weight BP Urine Prot -???-???-???-???-???-?? ?-???-???-???-???-???-? ??- Glucose FHR FuHt Pres Dilation -???-???-???-???-???-?? ?-???-???-???-???-???-? ??- Effaced St Visit Note 02/06/22 -???-???-???-???-???-?? ?-???-???-???-???-???-? ??- 8w 2d 153 lb 118/76 -???-???-???-???-???-?? ?-???-???-???-???-???-? ??- 180 160 -???-???-???-???-???-?? ?-???-???-???-???-???-? ??- SM- CRL 1.6c m cons with LMP SM- CRL 1.6cm cons with LMP, GS ab normality seen coming off edge into the cavity 5 mm in size no additional blood flow separate from pole 02/22/22 -???-???-???-???-???-?? ?-???-???-???-???-???-? ??- 10w 4d 152 lb 104/72 -???-???-???-???-???-?? ?-???-???-???-???-???-? ??- 160 -???-???-???-???-???-?? ?-???-???-???-???-???-? ??- SM- fu ultra sound normal appearing sac discussed genetic testing if desired. ACOG First Trimester First Trimester: Desire for , Alcohol, Tobacco Cessation, Illicit/Recreational Drug/Substance Use, Intimate Partner Violence, Barriers to care, Unstable Housing, Communication Barriers, Environmental/Work Hazards, Anticipated Course of Care, Toxoplasmosis Precations, Use of Any medications, Sexual activity, Exercise, Dental Care, Sauna/Hot tub use, Seat Belt use, Childbirth classes/Hospital facilities, , Travel, Indications for Ultrasound and Screening for Aneuploidy Diagnostics Diagnostics Diagnostics: Blood Type O POSITIVE Antibody Screen NEGATIVE Pap Smear Positive A* Hgb 13.8 g/dL (12.0-15.0) Hct 43.5 % (37-47) Chlamydia DNA (ANDREY) Negative (Neg (more content not included)... Normal [facility] Rubella IgGon 02-22-2022 Rubella IgG Reactive Normal Nonreactive [facility] Comment on above: Order Comment: Reaso n for Exam: Result Comment: Anti body Results Interpretation of Immune Status Non Reactive Presumed Non-Immune Equivocal Equivocal Reactive Presumed Immune Performed By: #### L 900.0098, L509.4005, L3890.6100, L100.0100, L3890.6005, L3890.6300, BTS, L509.8000 #### [facility] [address] [place], [place], [id number] [phone] Type AND Screenon 02-22-2022 Ab SCREEN GEL Negative Normal [facility] Comment on above: Order Comment: PN Performed By: #### M 100.2000, M100.3400, M100.3200 #### [facility] [address] [place], [address] ABO and Rh group Nom (Bld) Blood group O Rh(D) positive Normal [facility] Comment on above: Order Comment: PN Performed By: #### M 100.2000, M100.3400, M100.3200 #### [facility] [address] [place], [address] Chlamydia/GC ANDREY aptimaon GC BY NUC ACID Negative Normal Negative [facility] Comment on above: Result Comment: Perf ormed at: =G - [facility] [address] [id number] Car Icer: Alayna Mckeon MD, Phone: [phone] Performed By: #### M 100.1999, M100.3400, M100.3200 #### [facility] [address] [place], [address] CHLAMY,NUC ACID Negative Normal Negative [facility] Comment on above: Performed By: #### M 100.1999, M100.3400, M100.3200 #### [facility] [address] [place], [address] PAP I-G w/rfx hrHPV-Aptimaon 02-08-2022 ADEQ Comment Normal . [facility] Comment on above: Order Comment: Clini beltran Info: Collection Vial: Thin Prep VialGYN Source: CERVICALDate LMP/Menopause: LMPCollection Techniques: CX BROOM ONLYSpecimen Comment: [id number] Comment: No. of containers..01 ThinPrep Vial Result Comment: Sati sfactory for evaluation. Endocervical and/or squamous metaplastic cells (endocervical component) are present. Performed By: #### M 100.1999, M100.3400, M100.3200 #### [facility] [address] [place], [place], [address] COMMENT Comment Normal . [facility] Comment on above: Order Comment: Clini beltran Info: Collection Vial: Thin Prep VialGYN Source: CERVICALDate LMP/Menopause: LMPCollection Techniques: CX BROOM ONLYSpecimen Comment: [id number] Comment: No. of containers..01 ThinPrep Vial Result Comment: This liquid based ThinPrep(R) pap test was screened with the use of an image guided system. Performed By: #### M 100.1999, M100.3400, M100.3200 #### [facility] [address] [place], [place], [address] DIAG Comment Normal . [facility] Comment on above: Order Comment: Clini beltran Info: Collection Vial: Thin Prep VialGYN Source: CERVICALDate LMP/Menopause: LMPCollection Techniques: CX BROOM ONLYSpecimen Comment: [id number] Comment: No. of containers..01 ThinPrep Vial Result Comment: NEGA TIVE FOR INTRAEPITHELIAL LESION OR MALIGNANCY. Performed By: #### M 100.1999, M100.3400, M100.3200 #### [facility] [address] [place], [place], [address] HPV RFLX Comment Normal . [facility] Comment on above: Order Comment: Clini beltran Info: Collection Vial: Thin Prep VialGYN Source: CERVICALDate LMP/Menopause: LMPCollection Techniques: CX BROOM ONLYSpecimen Comment: [id number] Comment: No. of containers..01 ThinPrep Vial Result Comment: The HPV DNA reflex criteria were not met with this specimen result therefore, no HPV testing was performed. Performed at: [address] [id number] Car Icer: Alayna Mckeon MD, Phone: [phone] Performed By: #### M 100, M100.3400, M100.3200 #### [facility] [address] [place], [place], [id number] PAPSMR Comment Normal . [facility] Comment on above: Order Comment: Clini beltran Info: Collection Vial: Thin Prep VialGYN Source: CERVICALDate LMP/Menopause: LMPCollection Techniques: CX BROOM ONLYSpecimen Comment: [id number] Comment: No. of containers..01 ThinPrep Vial Result Comment: The Pap smear is a screening test designed to aid in the detection of premalignant and malignant conditions of the uterine cervix. It is not a diagnostic procedure and should not be used as the sole means of detecting cervical cancer. Both false-positive and false-negative reports do occur. Performed By: #### M , M1.340, M100.3200 #### [facility] [address] [place], [place], [address] PERFORM Comment Normal . [facility] Comment on above: Order Comment: Clini beltran Info: Collection Vial: Thin Prep VialGYN Source: CERVICALDate LMP/Menopause: LMPCollection Techniques: CX BROOM ONLYSpecimen Comment: [id number] Comment: No. of containers..01 ThinPrep Vial Result Comment: Francois Hernandez, Lumber Tying Machine Operator (ASCP) Performed By: #### M , M100.3400, M100.3200 #### [facility] [address] [place], [place], [address] COMM . Normal . [facility] Comment on above: Order Comment: Clini beltran Info: Collection Vial: Thin Prep VialGYN Source: CERVICALDate LMP/Menopause: LMPCollection Techniques: CX BROOM ONLYSpecimen Comment: [id number] Comment: No. of containers..01 ThinPrep Vial Performed By: #### M 100.2000, M100.3400, M100.3200 #### [facility] [address] [place], [address] Urine Cultureon 02-08-2022 URC Below infection leve l. Mixed Culture Linch Count <1000 Normal [facility] Comment on above: Performed By: #### M 100.2000, M100.3400, M100.3200 #### [facility] [address] [place], [address] Supervisor Motor Vehicle [employer] Office Visit Reporton 02-06-2022 Supervisor Motor Vehicle Assembly Office Visit Report [facility] [address] [place] [address] OFFICE VISIT Date of Service: 02/06/22 MR#: [id number] Acct: [id number] Name: PEYTON SEN Rep #: [id number] : 1995 Provider: Dr. Kristel rosario MD Age/Sex: 27/F [place] [facility] [place]: Signed Intake Vital Signs 04/26/21 09:30 02/06/22 08:51 Height 5 ft 5 in 5 ft 5 in Weight: 153 lb BMI 25.4 BP 118/76 Intake Visit Reasons: NOB LMP 12/10/21 Chief Complaint: NEW OB LMP 12/10/21 Ro[employer] Maker Helper Required: No Is patient in pain?: No Allergies No Known Allergies Allergy (Verified 03/22/21 09:30) Medications ondansetron 4 mg disintegrating tablet 4 mg PO Q8H PRN nausea and vomiting #30 tabs 01/24/22 [Rx] vitamin#30 30 mg iron-10 mg iron-folic acid 1 mg-omg3 capsule cap PO 02/06/22 [History Confirmed 02/06/22] Last Menstral Period: 12/10/21 Zika: Zika virus screening: Negative : No PFSH PFSH Medical History Abnormal Pap smear of cervix Dysthymia Major depressive disorder, recurrent severe without psychotic features Surgical History History of dilation and curettage No significant past surgical history Social History (Updated 02/06/22 @ 10:11 by Tonya Hernandez) household members: spouse housing: house current occupational status: employed 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 OB Visit RONIT Calculator Estimated Delivery Date Method Current WG Current Estimate 09/16/22 LMP (Certain) 8w 2d Estimated Due Date: 12/07/20 Expected Delivery Route/Plan Labor Preferences- CB/BF classes: [] labor support person: [] labor intervention preferences: [] pain management options preferred: [] cut cord/dad catch: [] : [] PP control planned: [] discussed possible routes of delivery and associated risks: [] special requests: [] Specific Issue/Plans Covid status: [] Flu vaccine: [] Tdap vaccine: [] Rhogam: [] LARC form signed: [] Problem list reviewed and updated with the most current plan of care details and appropriate orders placed. Relevant counseling for the gestational age provided. Continue routine care and follow up unless otherwise noted in visit notes/problem list details Initial Weight: Not Recorded Date -???-???-???-???-???-?? ?-???-???-???-???-???-? ??- EGA Weight BP Urine Prot -???-???-???-???-???-?? ?-???-???-???-???-???-? ??- Glucose FHR FuHt Pres Dilation -???-???-???-???-???-?? ?-???-???-???-???-???-? ??- Effaced St Visit Note 02/06/22 -???-???-???-???-???-?? ?-???-???-???-???-???-? ??- 8w 2d 153 lb 118/76 -???-???-???-???-???-?? ?-???-???-???-???-???-? ??- 180 160 -???-???-???-???-???-?? ?-???-???-???-???-???-? ??- SM- CRL 1.6c m cons with LMP SM- CRL 1.6cm cons with LMP, GS ab normality seen coming off edge into the cavity 5 mm in size no additional blood flow separate from pole Menstrual History Last Menstral Period: 12/10/21 Reported LMP: definite Normal amount/duration: Yes On hormonal BC at conception: No Antepartum Record Genetic Screening: Congenital Heart Defect: Other, Neural Tube Defect: Other, Hemoglobinopathy Or Carrier: Other, Cystic Fibrosis: Other, Chromosome Abnormality: Other, Clyde-Sachs: Other, Hemophilia: Other, Intellectual Disability/Autism: Other, Recurrent Loss/Stillbirth: Partner (aunt has had multiple miscarriage), Other Structural Defect: Other, Other Genetic Disease: Other and Maternal Metabolic Disorder: Other Infection History: Live with someone with TB or Exposed to TB: No, Patient or Partner has history of Genital Herpes: No, Rash or Viral illness since last mentrual period: No, Prior GBS-Infected child: No, History of STD: No, HIV Infection: No, History of Hepatitis: No, Recent travel outside of [place]: No, Concern for hepatitis exposure: No and Varicella immune: Yes Medical History Medical History: Positive: Psychiatric, Depression/ depression, Operations/hospitalizat ions and History of abnormal pap and Negative: Diabetes, Hypertension, Heart disease, Auto-immune disorder, Kidney diseas (more content not included)... Normal [facility] Urine Drug Screen (VISTA)on 02-06-2022 AMPHETAMINES Negative Normal <1000 ng/mL [facility] Comment on above: Order Comment: UNK Performed By: #### M 100, M100.340, M100.3200 #### [facility] [address] [place], [address] BARBITIURATES Negative Normal < 200 ng/mL [facility] Comment on above: Order Comment: UNK Performed By: #### M 100, .3400, M100.3200 #### [facility] [address] [place], [address] BENZODIAZIPINE Negative Normal < 200 ng/mL [facility] Comment on above: Order Comment: UNK Performed By: #### M 100, .3400, M100.3200 #### [facility] [address] [place], [address] COCAINE Negative Normal < 300 ng/mL [facility] Comment on above: Order Comment: UNK Performed By: #### M , M100.3400, M100.3200 #### [facility] [address] [place], [address] ECSTACY Negative Normal < 500 ng/mL [facility] Comment on above: Order Comment: UNK Performed By: #### M , .340, M100.3200 #### [facility] [address] [place], [address] METHADONE Negative Normal < 300 ng/mL [facility] Comment on above: Order Comment: UNK Performed By: #### M , M1.340, M100.3200 #### [facility] [address] [place], [address] OPIATES Negative Normal < 300 ng/mL [facility] Comment on above: Order Comment: UNK Performed By: #### M 100, M100.3400, M100.3200 #### [facility] [address] [place], [address] PCP Negative Normal < 25 ng/mL [facility] Comment on above: Order Comment: UNK Performed By: #### M 100.1999, M100.3400, M100.3200 #### [facility] [address] [place], [address] THC Negative Normal < 50 ng/mL [facility] Comment on above: Order Comment: UNK Performed By: #### M 100.1999, M100.3400, M100.3200 #### [facility] [address] [place], [address] VISTA UDS PH 8 Normal [facility] Comment on above: Order Comment: UNK Performed By: #### M , M100.3400, M100.3200 #### [facility] [address] [place], [address] .Auto Diffon 01-18-2021 Basophil, Absolute 0.10 10 3/mcL Normal 0.00-0.19 [facility] ([place]) Comment on above: Performed By: #### T SH, CMP, LIPID, GFR #### [address] [address] #### ADLLOYD, ANEU, CBC #### [address] [address] Basophils/100 WBC (Bld) 0.7 % Normal 0.0-2.5 [facility] ([place]) Comment on above: Performed By: #### T SH, CMP, LIPID, GFR #### [address] [address] #### ADLLOYD, ANEU, CBC #### [address] [address] Eosinophil, Absolute 0.10 10 3/mcL Normal 0.00-0.40 [facility] ([place]) Comment on above: Performed By: #### T SH, CMP, LIPID, GFR #### [place] [address] #### ADIFF, ANEU, CBC #### [address] [address] Eosinophils/100 WBC (Bld) 1.7 % Normal 0.0-7.0 [facility] ([place]) Comment on above: Performed By: #### T SH, CMP, LIPID, GFR #### [place] [address] #### ADIFF, ANEU, CBC #### [address] [address] Lymphocyte, Absolute 1.60 10 3/mcL Normal 0.77-3.85 [facility] ([place]) Comment on above: Performed By: #### T SH, CMP, LIPID, GFR #### [place] [address] #### ADIFF, ANEU, CBC #### [address] [address] Lymphocytes/100 WBC (Bld) 18.0 % Normal 10.0-50.0 [facility] ([place]) Comment on above: Performed By: #### T SH, CMP, LIPID, GFR #### [place] [address] #### ADIFF, ANEU, CBC #### [address] [address] Monocyte, Absolute 0.60 10 3/mcL Normal 0.15-1.00 [facility] ([place]) Comment on above: Performed By: #### T SH, CMP, LIPID, GFR #### [place] [address] #### ADIFF, ANEU, CBC #### [address] [address] Monocytes/100 WBC (Bld) 7.0 % Normal 1.7-13.0 [facility] ([place]) Comment on above: Performed By: #### T SH, CMP, LIPID, GFR #### [address] [address] #### ADIFF, ANEU, CBC #### [address] [address] Neutrophils/100 WBC (Bld) 72.6 % Normal 37.0-80.0 [facility] ([place]) Comment on above: Performed By: #### T SH, CMP, LIPID, GFR #### [place] [address] #### ADIFF, ANEU, CBC #### [address] [address] .GFRon 01-18-2021 GFR Non- 84 ml/min/1.73sqm Normal [facility] ([place]) Comment on above: Result Comment: GFR Population mean for , Non- Americans Ages 20-29 = 116 mL/min/1.73 sq.m. Ages 30-39 = 107 mL/min/1.73 sq.m. Ages 40-49 = 99 mL/min/1.73 sq.m. Ages 50-59 = 93 mL/min/1.73 sq.m. Ages 60-69 = 85 mL/min/1.73 sq.m. Ages 70+ = 75 mL/min/1.73 sq.m. Chronic Kidney Disease: Less than 60 mL/min/1.73 square meters End Stage Renal Disease: Less than 15 mL/min/1.73 square meters Performed By: #### T SH, CMP, LIPID, GFR #### [place] [address] #### ADIFF, ANEU, CBC #### [place] [id number] [place], [place] [address] GFR 102 ml/min/1.73sqm Normal [facility] ([place]) Comment on above: Result Comment: GFR Population mean for , Non- Americans Ages 20-29 = 116 mL/min/1.73 sq.m. Ages 30-39 = 107 mL/min/1.73 sq.m. Ages 40-49 = 99 mL/min/1.73 sq.m. Ages 50-59 = 93 mL/min/1.73 sq.m. Ages 60-69 = 85 mL/min/1.73 sq.m. Ages 70+ = 75 mL/min/1.73 sq.m. Chronic Kidney Disease: Less than 60 mL/min/1.73 square meters End Stage Renal Disease: Less than 15 mL/min/1.73 square meters Performed By: #### T SH, CMP, LIPID, GFR #### [place] [address] #### ADIFF, ANEU, CBC #### [address] [address] .NEUABSon 01-18-2021 Neutrophil, Absolute 6.40 10 3/mcL High 2.85-6.16 [facility] ([place]) Comment on above: Performed By: #### T SH, CMP, LIPID, GFR #### [place] [address] #### [place], ANEU, CBC #### [place] [id number] CBCon 01-18-2021 Erythrocyte distribution width (RBC) [Ratio] 14.1 % Normal 11.5-14.5 [facility] ([place]) Comment on above: Performed By: #### T SH, CMP, LIPID, GFR #### [place] [address] #### ADIFF, ANEU, CBC #### [address] [address] Hematocrit (Bld) [Volume fraction] 38.8 % Normal 37.0-47.0 [facility] ([place]) Comment on above: Performed By: #### T SH, CMP, LIPID, GFR #### [place] [address] #### ADIFF, ANEU, CBC #### [place] [address] Hgb 12.9 G/dL Normal 12.0-16.0 [facility] ([place]) Comment on above: Performed By: #### T SH, CMP, LIPID, GFR #### [place] [address] #### ADIFF, ANEU, CBC #### [address] [address] MCH (RBC) [Entitic mass] 26.6 pg Low 27.0-31.2 [facility] ([place]) Comment on above: Performed By: #### T SH, CMP, LIPID, GFR #### [place] [address] #### ADIFF, ANEU, CBC #### [address] [address] MCHC 33.3 G/dL Normal 33.0-37.0 [facility] ([place]) Comment on above: Performed By: #### T SH, CMP, LIPID, GFR #### [place] [address] #### ADIFF, ANEU, CBC #### [address] [address] MCV (RBC) [Entitic vol] 79.8 fL Low 80.0-94.0 [facility] ([place]) Comment on above: Performed By: #### T SH, CMP, LIPID, GFR #### [place] [address] #### ADIFF, ANEU, CBC #### [address] [address] Platelet 360 10 3/mcL Normal 130-400 [facility] ([place]) Comment on above: Performed By: #### T SH, CMP, LIPID, GFR #### [place] [address] #### ADIFF, ANEU, CBC #### [address] [address] Platelet mean volume (Bld) [Entitic vol] 8.7 fL Normal 7.4-10.4 [facility] ([place]) Comment on above: Performed By: #### T SH, CMP, LIPID, GFR #### [place] [address] #### ADIFF, ANEU, CBC #### [address] [address] RBC 4.85 10 6/mcL Normal 4.20-5.40 [facility] ([place]) Comment on above: Performed By: #### T SH, CMP, LIPID, GFR #### [place] [address] #### ADIFF, ANEU, CBC #### [address] [address] WBC 8.80 10 3/mcL Normal 4.60-10.80 [facility] ([place]) Comment on above: Performed By: #### T SH, CMP, LIPID, GFR #### [place] [address] #### ADIFF, ANEU, CBC #### [address] [address] CMPon 01-18-2021 Albumin Level 3.9 G/dL Normal 3.5-5.0 [facility] ([place]) Comment on above: Performed By: #### T SH, CMP, LIPID, GFR #### [place] [address] #### ADIFF, ANEU, CBC #### [address] [address] Albumin/Globulin [Mass ratio] 1.1 {ratio} Normal 1.1-2.5 [facility] ([place]) Comment on above: Performed By: #### T SH, CMP, LIPID, GFR #### [place] [address] #### ADIFF, ANEU, CBC #### [address] [address] ALP [Catalytic activity/Vol] 73 U/L Normal 40-135 [facility] ([place]) Comment on above: Performed By: #### T SH, CMP, LIPID, GFR #### [place] [address] #### ADIFF, ANEU, CBC #### [address] [address] ALT [Catalytic activity/Vol] 24 U/L Normal 14-59 [facility] ([place]) Comment on above: Performed By: #### T SH, CMP, LIPID, GFR #### [place] [address] #### ADIFF, ANEU, CBC #### [address] [address] AST [Catalytic activity/Vol] 16 U/L Normal 10-40 [facility] ([place]) Comment on above: Performed By: #### T SH, CMP, LIPID, GFR #### [place] [address] #### ADIFF, ANEU, CBC #### [address] [address] Bili Total 0.5 mg/dL Normal 0.2-1.0 [facility] ([place]) Comment on above: Result Comment: Use of this assay is not recommended for patients undergoing treatment with eltrombopag due to the potential for falsely elevated results. Performed By: #### T SH, CMP, LIPID, GFR #### [place] [address] #### ADIFF, ANEU, CBC #### [address] [address] BUN/Creatinine Ratio 12 ratio Normal 7-27 [facility] ([place]) Comment on above: Performed By: #### T SH, CMP, LIPID, GFR #### [place] [address] #### ADIFF, ANEU, CBC #### [address] [address] Calcium [Mass/Vol] 9.1 mg/dL Normal 8.4-10.2 [facility] ([place]) Comment on above: Performed By: #### T SH, CMP, LIPID, GFR #### [place] [address] #### ADIFF, ANEU, CBC #### [address] [address] Chloride [Moles/Vol] 104 mmol/L Normal 98-107 [facility] ([place]) Comment on above: Performed By: #### T SH, CMP, LIPID, GFR #### [place] [address] #### ADIFF, ANEU, CBC #### [address] [address] CO2 [Moles/Vol] 28 mmol/L Normal 22-29 [facility] ([place]) Comment on above: Performed By: #### T SH, CMP, LIPID, GFR #### [place] [address] #### ADIFF, ANEU, CBC #### [address] [address] Creatinine [Mass/Vol] 0.83 mg/dL Normal 0.55-1.02 [facility] ([place]) Comment on above: Performed By: #### T SH, CMP, LIPID, GFR #### [place] [address] #### ADIFF, ANEU, CBC #### [address] [address] Electrolyte Balance 7.0 mEq/L Normal [facility] ([place]) Comment on above: Performed By: #### T SH, CMP, LIPID, GFR #### [place] [address] #### ADIFF, ANEU, CBC #### [address] [address] Globulin 3.6 G/dL Normal [facility] ([place]) Comment on above: Performed By: #### T SH, CMP, LIPID, GFR #### [place] [address] #### ADIFF, ANEU, CBC #### [address] [address] Glucose [Mass/Vol] 89 mg/dL Normal 70-105 [facility] ([place]) Comment on above: Performed By: #### T SH, CMP, LIPID, GFR #### [place] [address] #### ADIFF, ANEU, CBC #### [address] [address] Potassium [Moles/Vol] 4.4 mmol/L Normal 3.5-5.1 [facility] ([place]) Comment on above: Performed By: #### T SH, CMP, LIPID, GFR #### [place] [address] #### ADIFF, ANEU, CBC #### [address] [address] Sodium [Moles/Vol] 139 mmol/L Normal 136-145 [facility] ([place]) Comment on above: Performed By: #### T SH, CMP, LIPID, GFR #### [place] [address] #### ADIFF, ANEU, CBC #### [address] [address] Total Protein 7.5 G/dL Normal 6.4-8.2 [facility] ([place]) Comment on above: Performed By: #### T SH, CMP, LIPID, GFR #### [place] [address] #### ADIFF, ANEU, CBC #### [address] [address] Urea nitrogen [Mass/Vol] 10 mg/dL Normal 7-18 [facility] ([place]) Comment on above: Performed By: #### T SH, CMP, LIPID, GFR #### [place] [address] #### ADIFF, ANEU, CBC #### [address] [address] LIPIDon 01-18-2021 Cholesterol [Mass/Vol] 153 mg/dL Normal 0-200 [facility] ([place]) Comment on above: Result Comment: Chol esterol Reference Interval: Less than 200 Desirable 200-239 Borderline high risk 240 and above High risk Performed By: #### T SH, CMP, LIPID, GFR #### [place] [address] #### ADIFF, ANEU, CBC #### [address] [address] Cholesterol in HDL [Mass/Vol] 43 mg/dL Normal 40-60 [facility] ([place]) Comment on above: Performed By: #### T SH, CMP, LIPID, GFR #### [place] [address] #### [place] ANEU, CBC #### [address] [address] Cholesterol in LDL [Mass/Vol] 94 mg/dL Normal 0-130 [facility] ([place]) Comment on above: Performed By: #### T SH, CMP, LIPID, GFR #### [place] [address] #### [place] ANEU, CBC #### [address] [address] Triglyceride [Mass/Vol] 78 mg/dL Normal 0-150 [facility] ([place]) Comment on above: Result Comment: Trig lyceride Reference Interval: Less than 150 Normal 150-199 Borderline high risk 200-499 High risk 500 or higher Very high risk Performed By: #### T SH, CMP, LIPID, GFR #### [place] [address] #### CHERYL ATKINSON, CBC #### [address] [address] TSHon 01-18-2021 TSH Qn 1.83 m[IU]/L Normal 0.36-3.74 [facility] ([place]) Comment on above: Performed By: #### T SH, CMP, LIPID, GFR #### [place] [address] #### [place] ANEU, CBC #### [address] [address] CNOVon 05-13-2018 CNOV Office Visit (WOOB) PEYTON BAIG ([id number]) 1995 [facility] Time Provider Jdsxkywquv39/16/18 3:05 PM STONE RENDON During your visit today, we recorded the following information about you: Blood pressure Weight Height Last Period 100/58 66.2 kg 1.651 m 05/03/18Stone Rendon MD 05/13/2018 4:01 PM KiraPeyton Flores is a 23 year old who presents for her annualgynecologic exam. During a recent sexual encounter approximately 2 weeks agoexperienced a deep pain that felt like an intense squeeze. With the sexualencounter the patient had multiple orgasms. The following day the duringsexual intercourse prior to an orgasm she had the same intense squeeze. Ratesthe squeeze as a 10/10. Has experienced the intense squeeze in the pastsitting or walking. The intense squeeze lasted for approximately 1 minute butthe recent lasted hours. Used ice for relief.Menses: cycles every 36-40 days and 4 days of flow. First day heavy and theremaining light. Experiences bloating, cramping and mood changes. Notbothersome. Just feels it is "part of my period."Contraception: noneHPV vaccine: Got the first shot in the series and then did not finish theremaining ones.Last Pap: NA HPV: N/AObstetric History T0 L0 SAB0 TAB0 Ectopic0 Multiple0 Live [id number] MEDICAL HISTORYDiagnosis Date- MigrainePAST SURGICAL HISTORYProcedure Laterality Date- NONEHistory reviewed. No pertinent family history.SOCIAL HISTORYSocial HistorySubstance Use Topics- Smoking status: Never Smoker- Smokeless tobacco: Never Used- Alcohol use NoREVIEW OF SYSTEMSAbdomen: No abdominal pain, nausea, vomiting, diarrhea, or constipation. Nobloating, early satiety, indigestion, or increased flatulence.Bladder: No dysuria, gross hematuria, urinary frequency, urinary urgency, orincontinence.Breast: No breast lumps, nipple d/c, overlying skin changes, redness or skinretraction.Allergie s and current medication updated:YesTEACHING PHYSICIAN NOTE OF PERSONAL INVOLVEMENT IN CARE:I have personally seen and examined the patient and performed the medicaldecision-making components. I have reviewed the medical student documentationand verified the findings in the note as written. Any additions or changes arenoted in bold/italics.Signature: Stone Rendon MDDate: 05/13/2018Time: 3:55 PMBelow entered by me:Stone Rendon MDEXAM: Ht 5' 5" (1.65m) Wt 146 lb (66.2kg) LMP 05/03/2018 BMI 24.30kg/(m2).GENERAL: pleasant, female in no apparent distressHEENT: Normocephalic, atraumatic, mucus membranes moist and no lesionsNECK: Supple, full range of motion, no adenopathy and thyroid normalDERMATOLOGY: Normal, without lesions, non-icteric and non-hirsuteBREAST: soft, non-tender, symmetric, no dominant mass, normal nipple-areolarcomplex, no lymphadenopathy and no nipple dischargeCHEST: Normal inspiratory effortABDOMEN: soft, non-tender and no massesPELVIC: external genitalia normal, normal Bartholin's glands, urethra, [place]'sglands, no vulvar lesions, no cervical lesions, good vaginal support,physiologic discharge present, normal appearing perineal body and perianalregionBIMANUAL: uterus normal size, shape and consistency, no adnexal masses andnon-tenderRECTOVAGIN AL: deferred.NEURO: alert and oriented x3,exam grossly non-focalEXTREMITIES: normalASSESSMENT/PLAN:1 ) Health maintenance:Pap done with reflex HPV.2) Contraception: none. Contraceptive options reviewed and informationprovided. declines for now3) STD screening: Accepted STD check for Gonorrhea and Chlamydia. declinesother4) Follow up one year or sooner as neededRecommend gardasil vaccine, would consider it but wants to check w/ insurancegetting in 2019Revikash Rendon, MDReferring Provider: SELF [[id number]]Allergies As of Date: 05/13/2018(No Known Allergies)Date Reviewed: 05/13/2018Reviewed by: Stone Rendon - Fully AssessedVisit Diagnoses:Encounter for gynecological examination (general) (routine) without abnormal findings [Z01.419] Screening for cervical cancer [Z12.4]Order(s):PAP FLUID CERVICAL SCREENING [9541254] Order #: [id number] GC/CHLAMYDIA DNA DET [SQGCCAMP] Order #: [id number] as of 05/13/2018 Sig: IMITREX ORAL Take by mouth.Problem List As Of Date: 05/13/2018(None)Medicat ions Discontinued During This Encounter amitriptyline (ELAVIL) 25 mg tablet 05/13/2018 Class: Historical Med Route: ORAL Sig: Take 25 mg by mouth daily at bedtime. Disc: Reason for discontinue is not on file.Disposition: Return in 1 year (on 05/13/2019) for Annual Exam.Follow-up and Disposition History RecordedEncounter Number: [id number] Status:Closed by STONE RENDON MD on 05/13/18 Normal [facility] CYTOLOGYon 05-13-2018 CYTOLOGY ---Abnormal Pap Test - Epithelial Cell Abnormality---[facility]: [id number] Physician: STONE RENDON M.D. ([id number])SPECIMEN SUBMITTEDA: CERVICAL, SCREENING, FLUID FI NAL DIAGNOSISA. CERVICAL, SCREENING, FLUIDSatisfactory for interpretation.Epitheli al cell abnormality.Low grade squamous intraepithelial lesion (LSIL).This specimen has been analyzed by the ThinPrep Imaging System, anautDropified imaging and review system, which assists the laboratory inevaluating cells on ThinPrep Pap tests. Following automated imaging,selected hurley from every slide are reviewed by a curtain supervisor.Natacha Joseph MD (Electronic Signature) CL INICAL DATA ROUTINE EXAM, HPV Testing: Yes, Reflex HPV for ASCUSDate of Last Menstrual Period:05/03/2018STAINSA : CERVICAL, SCREENING, FLUID THIN PREP GYNPatient ID #: [id number] of Report: 05/23/2018Date of Procedure: 05/13/2018Date of Receipt: 05/15/2018Submitted by: STONE RENDON M.D. ([id number])Location: WOREFDiagnostic interpretation performed at [facility], [address] [place] [address].The Pap Smear is a screening test for cervical cancer. False negativeresults occur with all screening tests, emphasizing the need forrescreening at recommended intervals, and clinical correlation. Critically abnormal [facility] GC/Chlamydia Amplifon 2017 Chlamydia Amplif Negative Normal [facility] Comment on above: Performed By: #### G CCT ####[place] [phone] GC Amplification Negative Normal [facility] Comment on above: Performed By: #### G CCT ####[place] [phone] GC/Chlam Amp Source Cervix Normal [facility] Comment on above: Performed By: #### G CCT ####[place] [phone] PROGRESSon 05-13-2018 Protein mass conc HNO ID: [id number]: Stone RendonService: (none)Author Type: PhysicianType: Progress NotesFiled: 05/13/2018 4:01 PMNote Text:Peyton Flores is a 23 year old who presents for her annualgynecologic exam. During a recent sexual encounter approximately 2 weeksago experienced a deep pain that felt like an intense squeeze. With thesexual encounter the patient had multiple orgasms. The following day theduring sexual intercourse prior to an orgasm she had the same intensesqueeze. Rates the squeeze as a 10/10. Has experienced the intensesqueeze in the past sitting or walking. The intense squeeze lasted forapproximately 1 minute but the recent lasted hours. Used ice for relief.Menses: cycles every 36-40 days and 4 days of flow. First day heavy andthe remaining light. Experiences bloating, cramping and mood changes.Not bothersome. Just feels it is "part of my period."Contraception: noneHPV vaccine: Got the first shot in the series and then did not finish theremaining ones.Last Pap: NA HPV: N/AObstetric History T0 L0 SAB0 TAB0 Ectopic0 Multiple0 Live [id number] MEDICAL HISTORYDiagnosis Date- MigrainePAST SURGICAL HISTORYProcedure Laterality Date- NONEHistory reviewed. No pertinent family history.SOCIAL HISTORYSocial HistorySubstance Use Topics- Smoking status: Never Smoker- Smokeless tobacco: Never Used- Alcohol use NoREVIEW OF SYSTEMSAbdomen: No abdominal pain, nausea, vomiting, diarrhea, or constipation.No bloating, early satiety, indigestion, or increased flatulence.Bladder: No dysuria, gross hematuria, urinary frequency, urinary urgency,or incontinence.Breast: No breast lumps, nipple d/c, overlying skin changes, redness orskin retraction.Allergies and current medication updated:YesTEACHING PHYSICIAN NOTE OF PERSONAL INVOLVEMENT IN CARE:I have personally seen and examined the patient and performed the medicaldecision-making components. I have reviewed the medical studentdocumentation and verified the findings in the note as written. Anyadditions or changes are noted in bold/italics.Signature: GUDELIA Feldmanate: 05/13/2018Time: 3:55 PMBelow entered by me:Stone Rendon MDEXAM: Ht 5' 5" (1.65m) Wt 146 lb (66.2kg) LMP 05/03/2018 BMI 24.30kg/(m2).GENERAL: pleasant, female in no apparent distressHEENT: Normocephalic, atraumatic, mucus membranes moist and no lesionsNECK: Supple, full range of motion, no adenopathy and thyroid normalDERMATOLOGY: Normal, without lesions, non-icteric and non-hirsuteBREAST: soft, non-tender, symmetric, no dominant mass, normalnipple-areolar complex, no lymphadenopathy and no nipple dischargeCHEST: Normal inspiratory effortABDOMEN: soft, non-tender and no massesPELVIC: external genitalia normal, normal Bartholin's glands, urethra,[place]'s glands, no vulvar lesions, no cervical lesions, good vaginalsupport, physiologic discharge present, normal appearing perineal body andperianal regionBIMANUAL: uterus normal size, shape and consistency, no adnexal masses andnon-tenderRECTOVAGIN AL: deferred.NEURO: alert and oriented x3,exam grossly non-focalEXTREMITIES: normalASSESSMENT/PLAN:1 ) Health maintenance:Pap done with reflex HPV.2) Contraception: none. Contraceptive options reviewed and informationprovided. declines for now3) STD screening: Accepted STD check for Gonorrhea and Chlamydia.declines other4) Follow up one year or sooner as neededRecommend gardasil vaccine, would consider it but wants to check w/insurancegetting in 2019Revikash Rendon MD Normal [facility] PROGRESSon 09-19-2017 Protein mass conc HNO ID: [id number]: Murphy López) Ishmael: (none)Author Type: PhysicianType: Progress NotesFiled: 09/19/2017 12:00 PMNote Text:Chief ComplaintPatient presents with:Same Day Appointment: Shahzad Flores is a 22 year old female who presents here today forevaluation of migraines.Patient follows up with Dr. Marcial in [place] and has been seeing themfor years, not planning on establishing today, but would like 2nd opinionabout migraine treatment. Has been on elavil which causes her to feel likeshe is in a fog, and imitrex PRN which helps, but is worried about takingtoo frequently because of rebound headaches. Has not been on any otherprevention. Would like information today on what causes migraines and whatelse can be done to treat them.Past medical history, appointments, medications, allergies reviewed.Previous Medical HistoryPAST MEDICAL HISTORYDiagnosis Date- MigrainePrevious Surgical HistoryNo past surgical history on file.Family HistoryNo family history on file.Patient AllergiesALLERGIESNo Known AllergiesCurrent MedicationsNo current outpatient prescriptions on file prior to visit.No current facility-administered medications on file prior to visit.Social HistorySocial History Marital status: Single Spouse name: Years of education: Number of children:Social History Main Topics Smoking status: Never Smoker Smokeless status: Never UsedReview of SymptomsREVIEW OF SYSTEMSGENERAL: No weight loss, malaise or feversRESPIRATORY: Negative for cough, hemoptysis, wheezing, COPD, dyspnea orshortness of breathCARDIOVASCULAR: Negative for chest pain, leg swelling, hypertension, CHFor palpitationsGI: No nausea, vomiting, or diarrheaSKIN: Negative for lesions, rash, and itchingNeuro: denies vision changes, slurred speech, numbness,tingling, weakness.EXAM:BP 100/76 Pulse 92 Resp 20 Ht 165.1 cm (5' 5") Wt 63.5 kg (140 lb) BMI 23.3 kg/y9Frawtme Appearance: Well appearing, alert, in no acute distress,well-hydrated, well nourished..Skin: Skin color, texture, turgor normal, no suspicious rashes or lesions.Lungs: Lungs clear to auscultation. No wheezing, rhonchi, rales.Heart: RRR without murmur, gallop, or rubs. No ectopy.Health Maintenance ListTETANUS due on 01/27/2007HPV VACCINE(1 of 3 - Female 3 Dose Series) due on 01/27/2007GC (GONORRHEA) SCREENING (18-24) due on 01/27/2014CHLAMYDIA SCREENING (18-24) due on 01/27/2014PAP EVERY 3 YEARS (21-30 YEAR OLDS) due on 01/27/2017INFLUENZA(1) due on 03/29/2017ASSESSMENT/PL AN:1. Migraine without status migrainosus, not intractable, unspecifiedmigraine type - ICD9: 346.90, ICD10: G43.909Discussed with patient common triggers for migraine and alternativetreatment options. Given information on migraines from [facility]. To followup with PCP about medication changes and encouraged to keep migrainediary.I spent 20 minutes in the visit, with more than 50% of the [id number]-cn-fnfo time of the visit in counseling / coordination of care.Murphy Paiz MD Normal [facility] Vital Signs Date Time Vital Sign Value Performing Clinician Facility 03-13-2022 18:36-0400 Diastolic blood pressure 71 mm[Hg] Sujatha Crowleyers Other Phone: [facility] 03-13-2022 18:36-0400 Heart rate 88 /min Sujatha Oconnor Other Phone: [facility] 03-13-2022 18:36-0400 Respiratory rate 18 /min Sujatha Oconnor Other Phone: [facility] 03-13-2022 18:36-0400 SaO2% (BldA) [Mass fraction] 100 % Sujatha Oconnor Other Phone: [facility] 03-13-2022 18:36-0400 Systolic blood pressure 111 mm[Hg] Sujatha Oconnor Other Phone: [facility] 03-13-2022 16:24-0400 Body height 167.6 cm Sujatha Oconnor Other Phone: [facility] 03-13-2022 16:24-0400 Body temperature 99.86 [degF] Sujatha Oconnor Other Phone: [facility] 03-13-2022 16:24-0400 Body weight 68.2 kg Sujatha Oconnor Other Phone: [facility] Encounters Encounter Date Encounter Type Care Provider Facility Start: 05-10-2023 End: 05-10-2023 Emergency department patient visit PHYSICIAN [facility] Start: 2023 End: 01-29-2023 ambulatory Lola Zbigniew [employer] WORK[facility] Start: 10-23-2022 End: 10-23-2022 ambulatory Cheri Melvin [employer] WORK[employer] Facility:[facility] Start: 10-03-2022 End: 10-03-2022 ambulatory Bernadette Montes De Oca Facility:[facility] Start: 09-17-2022 End: 09-17-2022 ambulatory Lola Coy [employer] WORKER Facility:[facility] Start: 08-22-2022 ambulatory Bernadette Montes De Oca Facilit y:[facility] Start: 08-22-2022 End: 08-23-2022 Evaluation and management of inpatient Bernadette Montes De Oca Facility:[facility] Start: 08-21-2022 End: 08-21-2022 ambulatory Kamini Vazquez Facility:[facility] Start: 08-16-2022 End: 08-16-2022 ambulatory Kristel Clement Facility:[facility] Start: 08-10-2022 End: 08-11-2022 ambulatory Kamini Vazquez Facility:[facility] Start: 08-10-2022 ambulatory Kristel Peacockazsmith Faci lity:[facility] Start: 08-09-2022 End: 08-10-2022 ambulatory Kristel Clement Facility:[facility] Start: 08-07-2022 End: 08-07-2022 ambulatory Kamini Vazquez Facility:[facility] Start: 07-24-2022 End: 07-24-2022 ambulatory Cheri Melvin NP Facility:[facility] Start: 07-19-2022 End: 07-19-2022 ambulatory [facility] Start: 07-10-2022 End: 07-10-2022 ambulatory Kamini Vazquez Facility:[facility] Start: 06-26-2022 End: 06-26-2022 ambulatory Cheri Melvin [employer] WORK[employer] Facility:[facility] Start: 06-20-2022 End: 06-20-2022 ambulatory [facility] Start: 06-12-2022 End: 06-12-2022 ambulatory Sujatha Oconnor [employer] WORK[employer] Facility:[facility] Start: 05-22-2022 End: 05-22-2022 ambulatory [facility] Start: 05-22-2022 End: 05-22-2022 ambulatory [facility] Start: 05-15-2022 End: 05-15-2022 ambulatory Kamini Vazquez Facility[facility] Start: 05-07-2022 End: [facility] 05-02-2022 End: 05-02-2022 ambulatory Kamini Vazquez Facility:[facility] Start: 04-17-2022 End: 04-17-2022 ambulatory Cheri Melvin [employer] WORKER Facility:[facility] Start: 03-30-2022 End: 03-30-2022 ambulatory Kristelveronica Suazoony Facility:[facility] Start: 03-20-2022 End: 03-20-2022 ambulatory Kamini Vazquez Facility:[facility] Start: 03-13-2022 End: 03-13-2022 Emergency department patient visit Dominga Sepulveda [facility] Emergency 09 Start: 02-22-2022 End: 02-22-2022 ambulatory Kristel Marcazony Facility:[facility] Start: 02-06-2022 End: 02-06-2022 ambulatory Kristel Marcanthony Facility:[facility] Start: 05-13-2018 End: 06-04-2018 Patient encounter procedure STONE RENDON [facility] Start: 09-19-2017 End: 09-19-2017 Patient encounter procedure MURPHY PAIZ [facility] Payers Date Payer Category Payer Self-pay 2022 Private Health Insurance [id number] 1996 Unknown [id number]. 2.479 1996 Unknown [id number] 2.1.559833.3.579. 2.479 1996 Unknown [id number] 09.13.830.1.501025.3.579. 2.479 1996 Unknown [id number] .1.143844.3.579. 2.479 1996 Unknown [id number] 09.13.830.1.552122.3.579. 2.479 1996 Unknown [id number] 09.13.830.1.839503.3.579. 2.902 Unknown [facility] Unknown [id number] 840.1.572741.3.579. 2.462 Unknown [id number] 840.1.391536.3.579. 2.462 Unknown [id number] 2.16.840.1.976348.3.579. 2.462 Unknown [id number] 2.16.840.1.602440.3.579. 2.462 Unknown [id number] 2.16.840.1.624241.3.579. 2.462 Unknown [id number] 2.16.840.1.637164.3.579. 2.462 Unknown [id number] 2.16.840.1.181979.3.579. 2.462 Unknown [id number] 2.16.840.1.034461.3.579. 2.462 Unknown [id number] 2.16.840.1.118690.3.579. 2.462 Unknown [id number] 2.16.840.1.142777.3.579. 2.462 Unknown [id number] 2.16.840.1.983751.3.579. 2.462 Unknown [id number] 2.16.840.1.021653.3.579. 2.462 Unknown [id number] 2.16.840.1.077512.3.579. 2.462 Unknown [id number] 2.16.840.1.112588.3.579. 2.462 Unknown [id number] 2.16.840.1.284246.3.579. 2.462 Unknown [id number] 2.16.840.1.192826.3.579. 2.462 Unknown [id number] 2.16.840.1.514860.3.579. 2.462 Unknown [id number] 2.16.840.1.131840.3.579. 2.462 Unknown [id number] 2.16.840.1.034275.3.579. 2.462 Unknown [id number] 2.16.840.1.927866.3.579. 2.462 Unknown [id number] 2.16.840.1.924135.3.579. 2.462 Unknown [id number] 2.16.840.1.074013.3.579. 2.462 Unknown [id number] 2.16.840.1.569027.3.579. 2.462 Unknown [id number] 2.16.840.1.924112.3.579. 2.462 Unknown [id number] 2.16.840.1.278931.3.579. 2.462 Unknown [id number] 2.16.840.1.140883.3.579. 2.462 Unknown [id number] 2.16.840.1.826163.3.579. 2.462 Unknown [id number] 2.16.840.1.752116.3.579. 2.462 Unknown [id number] 2.16.840.1.253966.3.579. 2.462 Unknown [id number] 2.16.840.1.080093.3.579. 2.462 Unknown [id number] 2.16.840.1.736228.3.579. 2.462 Social History Date Type Detail Facility [facility] Tobacco smoking consumption unknown [facility] Summary Purpose Family History No Family History Records FoundNo Family History Records FoundNo Family History Records FoundNo Family History Records FoundNo Family History Records FoundNo Family History Records Found Advance Directives No Advanced Directives Records FoundNo Advanced Directives Records FoundNo Advanced Directives Records FoundNo Advanced Directives Records FoundNo Advanced Directives Records FoundNo Advanced Directives Records Found Additional Source Comments INFORMATION SOURCE (unrecogn ized section and content) DATE CREATED AUTHOR 07/06/2018 [facility] DATE CREATED AUTHOR AUTHOR'S ORGANIZ ATION 01/19/2021 [facility] DATE CREATED AUTHOR AUTHOR'S ORGANIZ ATION 03/21/2022 [facility] DATE CREATED AUTHOR AUTHOR'S ORGANIZ ATION 07/21/2022 [facility] DATE CREATED AUTHOR AUTHOR'S ORGANIZ ATION 01/30/2023 [facility] DATE CREATED AUTHOR AUTHOR'S ORGANDEBRA SINGH 05/17/2023 [facility] <item> Privacy Markings (unrecogniz ed section and content) Section Author: Charu Chambers PROHIBITION ON REDISCLOSURE OF CONFIDENTIAL INFORMATION This notice accompanies a disclosure of information concerning a client made to you with the consent of such client. FOR RECORDS PERTAINING TO PATIENTS WHO ARE OR HAVE BEEN ENROLLED IN A CHEMICAL DEPENDENCY/SUBSTANCEABUSE PROGRAM, SOME INFORMATION MAY BE OMITTED. This clinical summary was aggregated from multiple sources. Caution should be exercised in using it in the provision of clinical care. This summary normalizes information from multiple sources, and as a consequence, information in this document may materially change the coding, format and clinical context of patient data. In addition, data may be omitted in some cases. CLINICAL DECISIONS SHOULD BE BASED ON THE PRIMARY CLINICAL RECORDS. [employer] provides no warranty or guarantee of the accuracy or completeness of information in this document.
== END | disposition home or self-care (01) ==
LOC: PAVLAB 13:41
PROVIDERS: PCP Nurse Practitioner Family; Referring Provider Nurse Practitioner Women's Health; Visit Provider Nurse Practitioner Women's Health
DX: O20.9 Hemorrhage in early pregnancy, unspecified (principal); Z3A.00 Weeks of gestation of pregnancy not specified
CPT/HCPCS: 36415; 84702